=== PATIENT | male | born 1980 | race Caucasian/White ===

== ENCOUNTER 2024-06-22 07:04 | Outpatient (CLI) | payer OTHER, SELFPAY ==
--- NOTE | ~2024-06-22 | US_ITS ---
EXAMINATION: US right upper quadrant DATE: 06/22/2024 07:32 INDICATION: R74.01 - Elevation of levels of liver transaminase levels TECHNIQUE: Multiple grayscale and Doppler ultrasound images of the right upper quadrant were obtained . COMPARISON: 12/28/2006. FINDINGS: The visualized portions of the pancreas are normal. Echogenic liver parenchyma. 2.8 cm hete rogeneous focus in the liver with an echogenic ring, central hypoechogenicity, and the suggestion of a peripheral halo (image 24/30). No surface nodularity. Normal hepatopetal flow in the main portal ve in. The gallbladder is normal with no abnormal wall thickening, pericholecystic fluid or stones. The common bile duct measures 3 mm. There was no sonographic Means sign. IMPRESSION: Echogenic liver, most commonly due to steatosis but also can be seen with hepatitis and fibrosis. Possible 2.8 cm liver lesion, consider MR or CT of the liver without and with contrast for confirmati on further characterization. Reviewed, dictated and finalized at location K. IMPRESSION: Echogenic liver, most commonly due to steatosis but also can be seen with hepat itis and fibrosis. Possible 2.8 cm liver lesion, consider MR or CT of the liver without and with c ontrast for confirmation further characterization.
[2024-06-22 07:21] LABS: Basophils Absolute Auto 0.08 K/mm3 (0.00-0.10); Basophils Percent Auto 0.9 % (0.0-1.0); Eosinophils Absolute Auto 0.32 K/mm3 (0.02-0.50); Eosinophils Percent Auto 3.4 % (1.0-6.0); Hematocrit 43.8 % (40.0-54.0); Hemoglobin 15.5 g/dL (14.0-18.0); Immature Granulocyte Absolute 0.05 K/mm3 (0.00-0.00); Immature Granulocyte Percent A 0.5 % (0.0-0.0); Lymphocytes Absolute Auto 2.93 K/mm3 (1.10-4.50); Lymphocytes Percent Auto 31.2 % (18.0-42.0); Mean Corpuscular HGB Conc 35.4 g/dL (32-36); Mean Corpuscular Hemoglobin 32.8 pg (27.0-31.0); Mean Corpuscular Volume 92.8 fL (78.0-102.0); Mean Platelet Volume 10.1 fl (8.7-11.0); Monocytes Absolute Auto 0.82 K/mm3 (0.10-0.90); Monocytes Percent Auto 8.7 % (2.0-11.0); Neutrophils Absolute Auto 5.19 K/mm3 (1.70-7.20); Neutrophils Percent Auto 55.3 % (50.0-70.0); Platelet Count Result 240 K/mm3 (150-420); Red Blood Count 4.72 M/mm3 (4.70-6.10); Red Cell Distribution Width 12.1 % (11.6-14.4); White Blood Count 9.4 K/mm3 (4.8-10.8)
[2024-06-22 08:18] LABS: Alanine Aminotransferase 56 U/L (16-63); Albumin Level 3.8 g/dL (3.4-5.0); Alkaline Phosphatase 70 U/L (46-116); Anion Gap 10 mmol/L (4-12); Aspartate Amino Transferase 32 U/L (15-37); Bilirubin,Total 0.7 mg/dL (0.00-1.00); Blood Urea Nitrogen 12 mg/dL (7-18); Calcium 9.2 mg/dL (8.5-10.1); Carbon Dioxide 27 mmol/L (21-32); Chloride 101 mmol/L (98-108); Cholesterol 213 mg/dL (0-200); Estimated Glomerular Filt Rate > 60; Glucose 91 mg/dL (70-99); HDL Direct 31 mg/dL (40-60); LDL Cholesterol Calculated 143 mg/dL (<130); Osmolality Calculated 285 mOsm/kg (285-295); Potassium 4.4 mmol/L (3.5-5.1); Sodium 138 mmol/L (136-145); Thyroid Stimulating Hormone 0.75 uIU/mL (0.36-3.74); Total Protein 7.3 g/dL (6.4-8.2); Triglycerides 194 mg/dL (0-150)
[2024-06-23 20:43] LABS: Amphetamines NEGATIVE ng/mL (<500); Barbiturates NEGATIVE ng/mL (<300); Benzodiazepines NEGATIVE ng/mL (<100); Cocaine Metabolite NEGATIVE ng/mL (<150); Marijuana Metabolite NEGATIVE ng/mL (<20); Methadone Metabolite NEGATIVE ng/mL (<100); Opiates NEGATIVE ng/mL (<100); Oxidant NEGATIVE mcg/mL (<200); pH 4.8 (4.5-9.0)
== END 2024-06-22 07:05 | disposition home or self-care (01) ==
LOC: CHSIMG 07:07
PROVIDERS: PCP Clinical Nurse Specialist; Visit Provider Clinical Nurse Specialist
DX: Z13.228 Encounter for screening for other metabolic disorders (principal); F41.9 Anxiety disorder, unspecified; E66.01 Morbid (severe) obesity due to excess calories; F90.9 Attention-deficit hyperactivity disorder, unspecified type; R74.01 Elevation of levels of liver transaminase levels; Z68.42 Body mass index [BMI] 45.0-49.9, adult; R93.2 Abnormal findings on diagnostic imaging of liver and biliary tract
CPT/HCPCS: 36415; 76705; 80053; 80061; 80307; 84443; 85025

== ENCOUNTER 2024-07-19 06:47 | Outpatient (CLI) | payer OTHER, SELFPAY | END 2024-07-19 06:48 | disposition home or self-care (01) | LOC: CHSIMG 06:49 | PROVIDERS: PCP Clinical Nurse Specialist; Visit Provider Clinical Nurse Specialist | DX: K76.9 Liver disease, unspecified (principal) | CPT/HCPCS: 99199 ==

== ENCOUNTER 2024-11-30 17:05 | Emergency (ER) | payer OTHER, SELFPAY ==
--- NOTE | ~2024-11-30 | XR_ITS ---
XR chest 2V Ordering provider: Estela Ricci MD History: 44 years Male with . cp, sob, dizziness . Comparison: February 17, 2017 FINDINGS: MEDIASTINUM: The cardiac silhouette is not enlarged. LUNGS: No infiltrates, effusions or pneumothorax. OTHER: No free air under the diaphragm. Degenerative changes of the spine. IMPRESSION: No acute cardiopulmonary pathology. Reviewed, dictated and finalized at location A. IFIED MIDWIFE
--- NOTE | 2024-11-30 17:11 | ECG_ITS ---
Test Date: 2024-11-30 17:20:20 Measurements Intervals [place] Rate: 95 P: 38 AR: 157 QRS: 19 QRSD: 110 T: 15 QT: 355 QTc: 447 Interpretive Statements SINUS RHYTHM INCOMPLETE RIGHT BUNDLE BRANCH BLOCK [90+ ms QRS DURATION, TERMINAL R IN V1/V2, 40+ ms S IN I/aVL/V4/V5/V6] No previous ECG available for comparison Electronically Signed On 12-04-2024 17:47:05 ASSISTANT MANAGER AIRSIDE OPERATIONS by Eli Gregg M.D.
[2024-11-30 17:13] VITALS: BP 152/116; PULSE 95; RESP 20; TEMP 36.6; O2SAT 98
[2024-11-30 17:34] LABS: Basophils Absolute Auto 0.1 K/mm3 (0.0-0.1); Basophils Percent Auto 0.9 % (0.2-1.2); Eosinophils Absolute Auto 0.9 K/mm3 (0-0.3); Eosinophils Percent Auto 6.8 % (0-4.4); Hematocrit 40.9 % (42.0-52.0); Hemoglobin 14.7 g/dL (14.0-18.0); Immature Granulocyte Absolute 0.07 K/mm3 (0.00-0.031); Immature Granulocyte Percent A 0.5 % (0-0.5); Lymphocytes Absolute Auto 2.99 K/mm3 (0.9-3.2); Lymphocytes Percent Auto 23.5 % (18.3-44.2); Mean Corpuscular HGB Conc 35.9 g/dl (32-36); Mean Corpuscular Hemoglobin 32.2 pg (26-34); Mean Corpuscular Volume 89.5 fl (80-100); Mean Platelet Volume 9.4 fl (7.4-10.4); Monocytes Absolute Auto 1.1 K/mm3 (0.1-0.6); Neutrophils Absolute Auto 7.6 K/mm3 (1.3-6.7); Neutrophils Percent Auto 59.3 % (45.5-73.1); Platelet Count Result 238 k/mm3 (150-375); Red Blood Count 4.57 M/mm3 (4.6-6.20); Red Cell Distribution Width 12.3 % (11.5-14.5); White Blood Count 12.7 K/mm3 (4.5-10.0)
[2024-11-30 17:44] LABS: Alanine Aminotransferase 40 U/L (6-50); Albumin Level 4.5 g/dL (3.5-5.1); Alkaline Phosphatase 88 U/L (38-126); Anion Gap 6 mmol/L (4-12); Aspartate Amino Transferase 47 U/L (17-59); Bilirubin,Total 0.6 mg/dL (0.2-1.3); Blood Urea Nitrogen 9 mg/dL (9-20); Calcium 9.1 mg/dL (8.4-10.2); Carbon Dioxide 25 mmol/L (22-30); Chloride 103 mmol/L (98-107); Estimated CRCL calculation 145 ml/min; Estimated Glomerular Filt Rate > 60; Glucose 102 mg/dL (65-110); Lipase 58 U/L (23-300); Potassium 3.7 mmol/L (3.4-5.0); Sodium 134 mmol/L (137-145)
[2024-11-30 17:48] LABS: Prothrombin Time 13.5 Seconds (11.1-14.7)
[2024-11-30 17:49] LABS: Partial Thromboplastin Time 29.2 Seconds (22.3-36.8)
[2024-11-30 17:56] LABS: Troponin I < 0.012 ng/mL (0.000-0.034)
[2024-11-30 23:17] VITALS: BP 144/92; PULSE 98; RESP 14; TEMP 36.4; O2SAT 99
[2024-12-01 02:13] VITALS: BP 156/103; PULSE 88; RESP 18; O2SAT 96
--- NOTE | 2024-12-01 02:21 | PC.NURSE ---
aspirin was not given. will await for new orders from provider.
--- NOTE | 2024-12-01 02:25 | ECG_ITS ---
Test Date: 2024-12-01 02:28:00 Measurements Intervals [place] Rate: 82 P: 32 RI: 159 QRS: 20 QRSD: 111 T: 15 QT: 383 QTc: 448 Interpretive Statements SINUS RHYTHM LOW QRS VOLTAGE IN PRECORDIAL LEADS [QRS DEFLECTION < 1.0 mV IN CHEST LEADS] INCOMPLETE RIGHT BUNDLE BRANCH BLOCK [90+ ms QRS DURATION, TERMINAL R IN V1/V2, 40+ ms S IN I/aVL/V4/V5/V6] Compared to ECG 11/30/2024 17:20:20 NO SIGNIFICANT CHANGES Electronically Signed On 12-04-2024 17:54:23 SEPARATING MACHINE OPERATOR by Eli Gregg M.D.
[2024-12-01 03:02] LABS: Troponin I < 0.012 ng/mL (0.000-0.034)
--- NOTE | 2024-12-01 03:44 | ED.GENADULT ---
HPI - General Adult General Chief complaint: Chest Pain Stated complaint: CP, cough, SOB Time Seen by Provider: 12/01/24 02:34 History of Present Illness HPI narrative: Patient 34-year-old gentleman presents emergency department chief complaint of chest pain and syncope. The patient reports that he is cough pain and had an episode of coughing where he would bear down the patient reports that he passed out after this episode. Patient reports that he has had no bowel or bladder incontinence reports that he then had pressure in the left side of his chest that has subsequently resolved. Related Data Home Medications ?Medication ?Instructions ?Recorded ?Confirmed ?Last Taken ?Type naproxen sodium 220 mg tablet 660 mg PO BID PRN 03/27/24 08/23/24 Unknown History (Aleve) trazodone 100 mg tablet 100 mg PO QHS PRN 03/27/24 08/23/24 Unknown History Allergies Allergy/AdvReac Type Severity Reaction Status Date / Time No Known Allergies Allergy Unverified 08/23/24 14:41 Review of Systems Review of Systems: A 10 system review of systems was completed on the patient and is negative except for what is stated in the HPI. Nursing and ancillary documentation was reviewed. [facility] Past Medical History Medical History Alcoholism Sober since April 2023. Gastric ulcer Hypertension Anxiety Family History Family History Grandparent Malignant neoplasm of prostate Family history of lung cancer Father Heart disease Anxiety and depression Diabetes mellitus Hypertension Alcoholism Mother Hypertension Anxiety and depression Alcoholism Breast cancer Asthma Diabetes mellitus Other Cerebrovascular accident Family history of arthritis Family history of malignant neoplasm Social History Social History Smoking packs per day: 2 Smoking cigarettes per day: 40.0 Smoking status: Current every day smoker Tobacco type: cigarettes Alcohol intake: former Substance use type: does not use Do You Feel Safe in your Home?: Yes Lack of Transportation: No Lack of Food: Never True Current Housing: I Have Housing Concerned About Future Housing: No Difficulty Paying Gas/Electric Bills: No Difficulty Paying for Meds: No Currently Unemployed: No Education: Bachelor's Degree Difficulty w/ Childcare or Family Care: No Occupation/Education: occupation 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 HEAD: Normocephalic, atraumatic. EYES: PERRLA and EOMI. ENT: Nares clear, no rhinorrhea or epistaxis. Mucous membranes moist. NECK: Supple. CHEST: Clear to auscultation. No respiratory distress. HEART: Regular rate and rhythm. No murmur heard. Normal peripheral pulses. ABDOMEN: Soft, nontender, nondistended, normal active bowel sounds. EXTREMITIES: Normal range of motion. No edema. SKIN: Warm, dry, no rash. NEURO: No focal deficits. Alert and oriented x3. PSYCH: Normal mood and affect. Course Vital Signs Vital signs: Vital Signs Temperature 36.6 C 11/30/24 17:13 Pulse Rate 95 11/30/24 17:13 Respiratory Rate 20 11/30/24 17:13 Blood Pressure 152/116 H 11/30/24 17:13 Pulse Oximetry 98 11/30/24 17:13 Oxygen Delivery Room Air 11/30/24 17:13 Temperature 36.4 C 11/30/24 23:17 Pulse Rate 88 12/01/24 02:13 Respiratory Rate 18 12/01/24 02:13 Blood Pressure 156/103 H 12/01/24 02:13 Pulse Oximetry 96 12/01/24 02:13 Oxygen Delivery Room Air 11/30/24 17:13 Medical Decision Making [facility] Narrative Medical decision making narrative: Differential diagnosis includes cardiogenic syncope, dysrhythmia, vasovagal syncope, atypical chest pain The patient described the episode of forcefully coughing but not completely exhaling and coughing on a closed glottis this is most likely a vasovagal episode. The patient had 2- troponins in the emergency department the patient will be discharged home to follow-up with his primary care provider as he may need further workup as an outpatient that could include stress test Holter monitor. The patient was instructed to return precautions the patient was offered admission to the hospital with the patient has chosen to go home at this time Vital Signs Vital Signs: Vital Signs Temperature 36.6 C 11/30/24 17:13 Pulse Rate 95 11/30/24 17:13 Respiratory Rate 20 11/30/24 17:13 Blood Pressure 152/116 H 11/30/24 17:13 Pulse Oximetry 98 11/30/24 17:13 Oxygen Delivery Room Air 11/30/24 17:13 Temperature 36.4 C 11/30/24 23:17 Pulse Rate 88 12/01/24 02:13 Respiratory Rate 18 12/01/24 02:13 Blood Pressure 156/103 H 12/01/24 02:13 Pulse Oximetry 96 12/01/24 02:13 Oxygen Delivery Room Air 11/30/24 17:13 Lab Data 11/30/24 17:29 11/30/24 17:29 Labs: Lab Results 11/30/24 12/01/24 Range/Units 17:29 02:23 WBC 12.7 H (4.5-10.0) K/mm3 RBC 4.57 L (4.6-6.20) M/mm3 Hgb 14.7 (14.0-18.0) g/dL Hct 40.9 L (42.0-52.0) % MCV 89.5 (80-100) fl MCH 32.2 (26-34) pg MCHC 35.9 (32-36) g/dl RDW 12.3 (11.5-14.5) % Plt Count 238 (150-375) k/mm3 MPV 9.4 (7.4-10.4) fl Immature Gran % (Auto) 0.5 (0-0.5) % Neut % (Auto) 59.3 (45.5-73.1) % Lymph % (Auto) 23.5 (18.3-44.2) % Mccreary % (Auto) 9.0 H (2.6-8.5) % Eos % (Auto) 6.8 H (0-4.4) % Baso % (Auto) 0.9 (0.2-1.2) % Lymph # (Auto) 2.99 (0.9-3.2) K/mm3 Mccreary # (Auto) 1.1 H (0.1-0.6) K/mm3 Eos # (Auto) 0.9 H (0-0.3) K/mm3 Baso # (Auto) 0.1 (0.0-0.1) K/mm3 Abs Immat Gran (auto) 0.07 H (0.00-0.031) K/mm3 Absolute Neuts (auto) 7.6 H (1.3-6.7) K/mm3 Absolute Nucleated RBC 0.000 (0.0-0.012) K/mm3 Nucleated RBC % 0.0 (0.0-0.2) % PT 13.5 (11.1-14.7) Seconds INR 1.0 APTT 29.2 (22.3-36.8) Seconds Sodium 134 L (137-145) mmol/L Potassium 3.7 (3.4-5.0) mmol/L Chloride 103 (98-107) mmol/L Carbon Dioxide 25 (22-30) mmol/L Anion Gap 6 (4-12) mmol/L BUN 9 (9-20) mg/dL Creatinine 0.80 (0.7-1.3) mg/dL Estim Creat Clear Calc 145 ml/min Estimated GFR > 60 (59 - ) Glucose 102 (65-110) mg/dL Calcium 9.1 (8.4-10.2) mg/dL Total Bilirubin 0.6 (0.2-1.3) mg/dL AST 47 (17-59) U/L ALT 40 (6-50) U/L Alkaline Phosphatase 88 (38-126) U/L Troponin I < 0.012 < 0.012 (0.000-0.034) ng/mL Total Protein 8.0 (6.3-8.2) g/dL Albumin 4.5 (3.5-5.1) g/dL Lipase 58 (23-300) U/L Discharge Plan Discharge Clinical Impression: Atypical chest pain, Vasovagal syncope Patient Disposition: Home, Self-Care Condition: Stable Instructions: Antibiotic Form, Chest Pain (ED), Syncope (ED) Patient Language: Macedonian Prescriptions: No Action trazodone 100 mg tablet 100 mg PO QHS PRN naproxen sodium [Aleve] 220 mg tablet 660 mg PO BID PRN gabapentin 600 mg tablet 600 mg PO TID Qty: 270 1RF bupropion HCl [Wellbutrin XL] 150 mg tablet extended release 24 hr 150 mg PO DAILY Qty: 30 5RF celecoxib 200 mg capsule 200 mg PO BID Qty: 60 5RF escitalopram oxalate 20 mg tablet 20 mg PO DAILY Qty: 30 5RF lisdexamfetamine 30 mg capsule 30 mg PO DAILY Qty: 30 0RF lisinopril 20 mg tablet 20 mg PO DAILY Qty: 90 1RF Follow-up/Referrals: Tejal Lewis PROJECTOR OPERATOR-C [Primary Care Provider] - Time of Disposition: 03:45
--- OUTSIDE RECORDS SUMMARY | 2024-12-08 03:46 | XMS_ITS | Encounter Summary ---
Author Organization [facility] Address [address] [place] [address]. [place], [place] [id number] [place] [id number] Care Team Providers Care Assistant Therapy Aide Name Role Phone Delores Hong MD Primary Care Provider [phone]- [phone] Encounter Details Date Type Department Care Team (Latest Contact Info) Description 01/27/2024 Travel Social History Tobacco Use Types Packs/Day Years Used Date Smoking Tobacco: Every Day Cigarettes 2 18 Smokeless Tobacco: Never Alcohol Use Standard Drinks/Week Comments Yes 0 (1 standard drink = 0.6 oz pure alcohol) (1) small bottle a day through week, (1) 5th on weekends a day. [place] Humiliation, Afraid, Rape, and Kick questionnair e Answer Date Recorded Within the last year, have y ou been afraid of your partner or ex-partner? No 01/24/2023 Within the last year, have y ou been humiliated or emotionally abused in other ways by your partner or ex-partner? No Within the last year, have y ou been kicked, hit, slapped, or otherwise physically hurt by your partner or ex-partner? No 01/24/2023 Within the last year, have y ou been raped or forced to have any kind of sexual activity by your partner or ex-partner? No 01/24/2023 Social Connection and Isolation Panel [NHANES] A nswer Date Recorded In a typical week, how many times do you talk on the phone with family, friends, or neighbors? Once a week 01/24/20 How often do you get togethe r with friends or relatives? Once a week 01/24/2023 How often do you attend chur ch or scientologist services? 1 to 4 times per year 01/24/2023 Do you belong to any clubs o r organizations such as restorationist groups, unions, fraternal or athletic groups, or school groups? No 01/24/2023 Attends Club or Organization Meetings Not on marta e 01/24/2023 Are you , , di vorced, , never , or living with a partner? 01/24/2023 AUDIT-C Answer Date Recorded Q1: How often do you have a drink containing alcohol? 4 or more times a week 01/24/2023 Q2: How many drinks containi ng alcohol do you have on a typical day when you are drinking? 3 or 4 Q3: How often do you have si x or more drinks on one occasion? Weekly 01/24/2023 Overall Financial Resource Strain (CARDIA) Answe r Date Recorded How hard is it for you to pa y for the very basics like food, housing, medical care, and heating? Not hard at all 01/24/2023 PHQ-2 Answer Date Recorded Patient Health Questionnaire-2 Score 0 01/24/2023 [facility] - Occupational Stress Questionnaire Answer Date Recorded Do you feel stress - tense, restless, nervous, or anxious, or unable to sleep at night because your mind is troubled all the time - these days? Rather much 01/24/2023 Exercise Vital Sign Answer Date Recorde d On average, how many days pe r week do you engage in moderate to strenuous exercise (like a brisk walk)? 0 days 01/24/2023 On average, how many minutes do you engage in exercise at this level? 0 min 01/24/2023 Hunger Vital Sign Answer Date Recorded Within the past 12 months, y ou worried that your food would run out before you got the money to buy more. Never true 01/24/20 23 Within the past 12 months, t he food you bought just didn't last and you didn't have money to get more. Never true 01/24/2023 PRAPARE - Transportation Answer Date Re corded In the past 12 months, has l ack of transportation kept you from medical appointments or from getting medications? No 12/30 In the past 12 months, has l ack of transportation kept you from meetings, work, or from getting things needed for daily living? No 01/24/2023 Housing Stability Vital Sign Answer Honorio e Recorded In the last 12 months, was t here a time when you were not able to pay the mortgage or rent on time? No 01/24/2023 In the last 12 months, how many places have you lived? 1 01/24/2023 In the last 12 months, was t here a time when you did not have a steady place to sleep or slept in a residential (including now)? 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 Answer Date of Assessment Author Status No 01/24/2023 10:56 PM TILE CLASSIFIER Acti ve * Do you have serious difficulty walking or climbing stairs? Answer Date of Assessment Author Status No 01/24/2023 10:56 PM Leonor Hidalgo RN Active * Do you have difficulty dressing or bathing? Answer Date of Assessment Author Status No 01/24/2023 10:56 PM Leonor Hidalgo RN Active * Because of a physical, mental, or emotional condition, do you have difficulty doing errands alone such as visiting a doctor's office or shopping? Answer Date of Assessment Author Status No 01/24/2023 10:56 PM Leonor Hidalgo RN Active documented as of this encounter Mental Status * Because of a physical, mental, or emotional condition, do you have serious difficulty concentrating, remembering, or making decisions? Answer Entry Date Author Status No 01/24/2023 10:56 PM Leonor Hidalgo RN Active documented in this encounter Plan of Treatment Not on file documented as of this encounter Goals Goal Patient Goal Type Associated Problems Recent Progress Patient-Stated? Author Patient will return to prior living situation and remain independent in ADLs upon discharge from hospital Lifestyle Rosalina Richard, RN documented as of this encounter Visit Diagnoses Not on filedocumented in this encounter Care Teams Assistant Therapy Aide Relationship Specialty Start Date End Date Delores Hong MD [address] [place] [phone] PCP - General FAMILY PRACTICE 01/23/24 documented as of this encounter
--- OUTSIDE RECORDS SUMMARY | 2024-12-08 03:46 | XMS_ITS | Encounter Summary ---
Author Organization [facility] Address [address] [place] [address]. [place], [place] [id number] [place] [address] Care Team Providers Care Oceanographer Geological Name Role Phone Delores Hong MD Primary Care Provider [phone]- [phone] Encounter Details Date Type Department Care Team (Latest Contact Info) Description 01/23/2024 Travel Social History Tobacco Use Types Packs/Day [...] often do you attend chur ch or methodist services? 1 to 4 times per year 01/24/2023 Do you belong to any clubs o r organizations such as amish groups, unions, fraternal or athletic groups, or [...] Recorded Patient Health Questionnaire-2 Score 0 01/24/2023 [facility] Occupat ional Health - Occupational Stress [...] place to sleep or slept in a assisted (including now)? 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 Answer Date of Assessment Author Status No 01/24/2023 10:56 PM OTHER WOOD PROCESSING MACHINE OPERATOR Acti ve * Do you have serious [...] on filedocumented in this encounter Care Teams Oceanographer Geological Relationship Specialty Start Date End Date Delores Hong MD [address] [place] [phone] PCP - General FAMILY PRACTICE 01/23/24 documented as of this encounter
--- OUTSIDE RECORDS SUMMARY | 2024-12-08 03:46 | XMS_ITS | Encounter Summary ---
Author Organization [facility] Address [address] [place] [address]. [place], [place] [id number] [place] [id number] Care Team Providers Care Family Dinner Service Specialist Name Role Phone Kevin Blanc MD Primary Care Provider [phone] Reason for Visit * Imaging (Routine) - Closed Specialty Diagnoses / Procedures Referred By Contac t Referred To Contact RADIOLOGY Diagnoses Back pain Procedures CT LUMB SPINE WO CON Kevin Blanc MD [address] [place] [phone] Phone: tel: fax: Referral ID Status Reason Start Date Expiration Date Visits Re quested Visits Authorized [id number] Closed 12/29/2023 01/27/2024 1 1 Encounter Details Date Type Department Care Team (Late st Contact Info) Description 01/27/2024 2:58 PM SCULLION CHIEF - 01/27/2024 11:59 PM SCULLION CHIEF Hospital Encounter [facility] [address] [facility] [place] [address] Kevin Blanc MD [address] [place] [phone] Discharge Disposition: Home or Self Care (Routine Discharge) Social History Tobacco Use Types Packs/Day Years Used Date Smoking Tobacco: Every Day Cigarettes 2 18 Smokeless Tobacco: Never Alcohol Use Standard Drinks/Week Comments Yes 0 (1 standard drink = 0.6 oz pure alcohol) (1) small bottle a day through week, (1) 5th on weekends a day. CARROL BEAM Humiliation, Afraid, Rape, and Kick questionnair e [...] week 01/24/2023 How often do you attend [facility] or alevism services? 1 to 4 times per year 01/24/2023 Do you belong to any clubs o r organizations such as buddhism groups, unions, fraternal or athletic groups, or [...] Recorded Patient Health Questionnaire-2 Score 0 01/24/2023 [facility] - Occupational Stress Questionnaire Answer Date Recorded [...] Sex Assigned at Male 01/24/2023 10:53 PM SCULLION CHIEF Legal Sex Male 5:54 PM SCULLION CHIEF Gender Identity Male 01/24/2023 10:53 PM SCULLION CHIEF Sexual Orientation Straight 01/24/2023 10 :53 PM SCULLION CHIEF 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 Answer Date of Assessment Author Status No 01/24/2023 10:56 PM SCULLION CHIEF Acti ve * Do you have serious [...] Hidalgo RN Active documented in this encounter Medications at Time of Discharge clobetasol (TEMOVATE) 0.05 % cream Apply 15 g topically 2 (two) times daily. 01/15/2023 escitalopram (LEXAPRO) 10 MG tablet Take 1 tablet by mouth daily. 01/15/2023 documented as of this encounter Plan of Treatment Not on file documented as of this encounter Goals Goal Patient Goal Type Associated Problems Recent Progress Patient-Stated? Author Patient will return to prior living situation and remain independent in ADLs upon discharge from hospital Lifestyle Rosalina Richard RN documented as of this encounter Procedures Procedure Name Priority Date/Time Associated Diagnosis Comments CT LUMB SPINE WO CON Routine 01/27/2024 3:18 PM SCULLION CHIEF Back pain documented in this encounter Results * CT LUMB SPINE WO CON (01/27/2024 3:18 PM SCULLION CHIEF) Anatomical Region Laterality Modality Spine Computed Tomogra phy 01/30/2024 8:27 AM SCULLION CHIEF Impressions 02/05/2024 7:24 AM CDT IMPRESSION: Multilevel lumbar spondylosis greatest at L4-L5, as described above. The attending radiologist has reviewed the image(s) and agrees with the content of this report. Ordered By: KEVIN BLANC Interpreted By: Vito Alvarenga MD, 01/30/2024 8:27 AM Narrative 02/05/2024 7:24 AM CDT EXAMINATION: CT lumbar spine without contrast INDICATION: Back pain DATE AND TIME: 01/27/2024 3:12 PM TECHNIQUE: Non contrast CT examination of the lumbar spine was performed with axial and multiplanar reformatted images obtained. A radiation dose lowering technique was used for this procedure, which may include, but is not limited to, dose reduction technique, automated exposure control, the use of iterative reconstruction, ALARA (As Low As Reasonably Achievable) techniques, and Image Gently techniques. COMPARISON: CT abdomen pelvis 07/21/2018 FINDINGS: There are 5 lumbar vertebrae. There is grade 1 retrolisthesis of L3 over L4 and L5 over S1. There is grade 1 anterolisthesis of L4 over L5. There is maintenance of the normal lumbar spine lordosis. The lumbar vertebral body heights are normal. There is some disc space narrowing at T11-T12 and T12-L1 intervertebral spaces. There is widening of the facet joint at L4-L5 as well as significant facet arthropathy from the levels of L3-L5. There are degenerative changes such as anterior osteophyte formation across multiple levels most significant at T12-L1 as well as the partially visualized T11-T12 intervertebral spaces. There is no evidence of acute fracture or dislocation. T11-T12: Mild disc bulge. Moderate facet hypertrophy. Mild left neural foraminal stenosis. No right neural foraminal stenosis.. T12-L1: No significant osseous spinal canal or neuroforaminal stenosis. L1-L2: No significant osseous spinal canal or neuroforaminal stenosis. L2-L3: There is a disc bulge. Mild to moderate spinal canal stenosis. Mild bilateral neural foraminal stenosis. L3-L4: Disc bulge impressing the ventral thecal sac. Mild to moderate facet hypertrophy. Mild left neural foraminal stenosis. No right neural foraminal stenosis.. L4-L5: Disc bulge impressing the ventral thecal sac. Moderate to severe spinal canal stenosis. Moderate to marked facet hypertrophy. Moderate left neural foraminal stenosis. Mild right neural foraminal stenosis. L5-S1: No significant spinal canal stenosis. Facet hypertrophy. Mild to moderate right neural foraminal stenosis. Mild left neural foraminal stenosis There is some atherosclerotic disease of the distal abdominal aorta and bilateral common iliac arteries. No additional perispinal soft tissue abnormalities. Procedure Note Malick Ratliff MD - 02/05/2024 EXAMINATION: CT lumbar spine without contrast INDICATION: Back pain DATE AND TIME: 01/27/2024 3:12 PM TECHNIQUE: Non contrast CT examination of the lumbar spine was performed with axialand multiplanar reformatted images obtained. A radiation dose loweringtechnique was used for this procedure, which may include, but is notlimited to, dose reduction technique, automated exposure control, the useof iterative reconstruction, ALARA (As Low As Reasonably Achievable)techniques, and Image Gently techniques. COMPARISON: CT abdomen pelvis 07/21/2018 FINDINGS: There are 5 lumbar vertebrae. There is grade 1 retrolisthesis of L3 overL4 and L5 over S1. There is grade 1 anterolisthesis of L4 over L5. Thereis maintenance of the normal lumbar spine lordosis. The lumbar vertebralbody heights are normal. There is some disc space narrowing at T11-T12 [id number] intervertebral spaces. There is widening of the facet joint atL4-L5 as well as significant facet arthropathy from the levels of L3-L5.There are degenerative changes such as anterior osteophyte formationacross multiple levels most significant at T12-L1 as well as the partiallyvisualized T11-T12 intervertebral spaces. There is no evidence of acutefracture or dislocation. T11-T12: Mild disc bulge. Moderate facet hypertrophy. Mild left neuralforaminal stenosis. No right neural foraminal stenosis.. T12-L1: No significant osseous spinal canal or neuroforaminal stenosis. L1-L2: No significant osseous spinal canal or neuroforaminal stenosis. L2-L3: There is a disc bulge. Mild to moderate spinal canal stenosis. Mildbilateral neural foraminal stenosis. L3-L4: Disc bulge impressing the ventral thecal sac. Mild to moderatefacet hypertrophy. Mild left neural foraminal stenosis. No right neuralforaminal stenosis.. L4-L5: Disc bulge impressing the ventral thecal sac. Moderate to severespinal canal stenosis. Moderate to marked facet hypertrophy. Moderate leftneural foraminal stenosis. Mild right neural foraminal stenosis. L5-S1: No significant spinal canal stenosis. Facet hypertrophy. Mild tomoderate right neural foraminal stenosis. Mild left neural foraminalstenosis There is some atherosclerotic disease of the distal abdominal aorta andbilateral common iliac arteries. No additional perispinal soft tissueabnormalities. IMPRESSION: Multilevel lumbar spondylosis greatest at L4-L5, as described above. The attending radiologist has reviewed the image(s) and agrees with thecontent of this report. Ordered By: KEVIN BLANC Interpreted By: Vito Alvarenga MD, 01/30/2024 8:27 AM us Kevin Blanc MD CT Final Resu lt documented in this encounter Visit Diagnoses Not on filedocumented in this encounter Care Teams Family Dinner Service Specialist Relationship Specialty Start Date End Date Kevin Blanc MD [address] [place] [phone] PCP - General FAMILY PRACTICE 01/23/24 documented as of this encounter
--- OUTSIDE RECORDS SUMMARY | 2024-12-08 03:46 | XMS_ITS | Encounter Summary ---
Author Organization [facility] Address [address] [place] [address]. [place], [place] [id number] [place] [address] Care Team Providers Care Grinder And Plater Name Role Phone Sai Pacheco MD Primary Care Provider [phone] Encounter Details Date Type Department Care Team (Latest Contact Info) Description 01/24/2023 Travel Social History Tobacco Use Types Packs/Day [...] [facility] or taoism services? 1 to 4 times per year 01/24/2023 Do you belong to any clubs o r organizations such as latter-day groups, unions, fraternal or athletic groups, or [...] Recorded Patient Health Questionnaire-2 Score 0 01/24/2023 [facility] - Occupational Stress [...] place to sleep or slept in a [facility] (including now)? 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 No / Unsure 01/24/2023 10:50 PM STATEMENT CLERKS MANAGER documented as of this encounter Functional Status * Question Answer Date of Assessment Author Status Do you have serious difficulty walking or climbing stairs? No 01/24/2023 10:56 PM Leonor Hidalgo RN Active * Question Answer Date of Assessment Author Status Do you have difficulty dressing or bathing? No 01/24/2023 10:56 PM Leonor Hidalgo RN Active Because of a physical, mental, or emotional condition, do you have difficulty doing errands alone such as visiting a doctor's office or shopping? No 01/24/2023 10:56 PM Leonor Hidalgo RN A ctive * RETIRED Are you deaf or do you have serious difficulty hearing Answer Date of Assessment Author Status No 12/28/2020 1:37 AM STATEMENT CLERKS MANAGER Activ e * RETIRED Are you blind or do you have serious difficulty seeing, even when wearing glasses? Answer Date of Assessment Author Status No 12/28/2020 1:37 AM STATEMENT CLERKS MANAGER Activ e * Do you have serious difficulty walking or climbing stairs? Answer Date of Assessment Author Status No 12/28/2020 1:37 AM Arina Guerra RN Active * Do you have difficulty dressing or bathing? Answer Date of Assessment Author Status No 12/28/2020 1:37 AM Arina Guerra RN Active * Because of a physical, mental, or emotional condition, do you have difficulty doing errands alone such as visiting a doctor's office or shopping? Answer Date of Assessment Author Status No 12/28/2020 1:37 AM Arina Guerra RN Active documented as of this encounter Mental Status * Question Answer Entry Date Author Status Because of a physical, mental, or emotional condition, do you have serious difficulty concentrating, remembering, or making decisions? No 01/24/2023 10:56 PM Leonor Hidalgo RN Active * Because of a physical, mental, or emotional condition, do you have serious difficulty concentrating, remembering, or making decisions? Answer Entry Date Author Status No 12/28/2020 1:37 AM Arina Guerra RN Active documented in this encounter Plan of Treatment Not on file documented as of this encounter Visit Diagnoses Not on filedocumented in this encounter Care Teams Grinder And Plater Relationship Specialty Start Date End Date Sai Pacheco MD [address] [place] [phone] PCP - General FAMILY PRACTICE 12/27/20 01/22/24 documented as of this encounter
--- OUTSIDE RECORDS SUMMARY | 2024-12-08 03:46 | XMS_ITS | Encounter Summary ---
Author Organization [facility] Address [address] [place] [address]. [place] [address] [place] [address] Care Team Providers Care Customer Contact Representative Name Role Phone Sai Mejia MD Primary Care Provider [phone] Reason for Visit * Reason Comments Hypotension * Auth/Cert (Routine) Specialty Diagnoses / Procedures Referred By Contac t Referred To Contact Diagnoses Hypokalemia Hyponatremia LAWSON (acute kidney injury) ([facility]) LAWSON (acute kidney injury) ([facility]) Procedures NONE Major Iglesias MD [address] [place] [address] Phone: tel: fax: Referral ID Status Reason Start Date Expiration Date Visits Re quested Visits Authorized [id number] 1 1 Encounter Details Date Type Department Care Team (Late st Contact Info) Description 01/24/2023 9:10 PM PLAYGROUND DIRECTOR - 01/25/2023 2:30 PM PLAYGROUND DIRECTOR Emergency [facility] [address] [place] [address] Dinesh Delgado MD [address] [place] [id number] Major Iglesias MD [address] [place] [address] Delores Hong MD [address] [place] [phone] Hypotension Discharge Disposition: Home or Self Care (Routine Discharge) Social History Tobacco Use Types Packs/Day Years Used Date Smoking Tobacco: Every Day Cigarettes 2 18 Smokeless Tobacco: Never Tobacco Cessation:Ready to Q uit: Not Asked; Counseling Given: Not Answered Alcohol Use Standard Drinks/Week Comments Yes 0 [...] 01/24/2023 How often do you attend chur or yarsanism services? 1 to 4 times per year 01/24/2023 Do you belong to any clubs o r organizations such as hindu groups, unions, fraternal or athletic groups, or [...] Recorded Patient Health Questionnaire-2 Score 0 01/24/2023 [facility] - Occupational Stress [...] place to sleep or slept in a usp (including now)? 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 No / Unsure 01/24/2023 10:50 PM PLAYGROUND DIRECTOR documented as of this encounter Last Filed Vital Signs Vital Sign Reading Time Taken Comments Blood Pressure 126/84 01/25/2023 12:35 PM PLAYGROUND DIRECTOR Pulse 75 01/25/2023 12:35 PM PLAYGROUND DIRECTOR Temperature 36.6 ??C (97.9 ??F) 01/25/2023 12:[address] Respiratory Rate 20 01/25/2023 12:35 PM PLAYGROUND DIRECTOR Oxygen Saturation 96% 01/25/2023 12:35 PM PLAYGROUND DIRECTOR Inhaled Oxygen Concentration - - Weight 131.1 kg (289 lb) 01/24/2023 10:39 PM PLAYGROUND DIRECTOR Height 177.8 cm (5' 10 ) 01/24/2023 10:39 PM PLAYGROUND DIRECTOR Body Mass Index 41.47 01/24/2023 10:39 PM PLAYGROUND DIRECTOR documented in this encounter Functional Status * Question Answer [...] Assessment Author Status No 01/24/2023 10:56 PM PLAYGROUND DIRECTOR Acti ve * RETIRED Are you blind or do you have serious difficulty seeing, even when wearing glasses? Answer Date of Assessment Author Status No 01/24/2023 10:56 PM PLAYGROUND DIRECTOR Acti ve * Do you have serious difficulty walking or climbing stairs? Answer Date of Assessment Author Status No 01/24/2023 10:56 PM Leonor Hidalgo RN Active * Do you have difficulty dressing or bathing? Answer Date of Assessment Author Status No 01/24/2023 10:56 PM PLAYGROUND DIRECTOR Leonor Clifford RN Active * Because of a physical, [...] Hidalgo RN Active documented in this encounter Discharge Summaries * Mt Zavala NP - 01/25/2023 2:30 PM CST Images from the original note were not included. Physician Discharge Summary Patient ID: Stan Khan. male. 1980. Admit date: 01/24/2023 9:10 PM Discharge date and time: 01/25/23 Admitting Physician: Major Iglesias MD Primary Care Physician: SAI MEJIA MD Attending Provider: No att. providers found Discharge Physician: Delores Hong MD/TM ZAVALA NP Primary Diagnoses: Dehydration LAWSON Electrolyte imbalance Anxiety Secondary Diagnosis: Alcohol abuse Admission Condition: fair Discharged Condition: Good Code Status: Full Code Indication for Admission: Chief Complaint Patient presents with ??? Hypotension Reason for hospitalization: dehydration, LAWSON, weakness Hospital Course: Stan Khan was admitted on 01/24/2023 9:10 PM for complaint of low blood pressure. Patient states on January 17 he was started on lisinopril hydrochlorothiazide. He has been taking it every day.Previous to this he was only on lisinopril. He states that since starting it his blood pressure is r unning low and at times he feels lightheaded and caused him to vomit. This evening his systolic blood pressure was only 95. No pain or other complaints at this time. He states he is try to drink a lot of fluids today but has not had much of an appetite so did not eat much since breakfast. Denies abdominal pain diarrhea fevers chills or other complaints. Laboratory work-up shows hyponatremia hypokalemia hypochloremia with acute kidney injury as evidenced by creatinine of 2.28. White count is also elevated although I suspect this related to the dehydration. Will be continuing to give IV fluids. Patient seen today, electrolyte imbalance is normalizing. Patient to f/u with Dr. Hong this week for labs and office visit. Patient ready for discharge. Consults: none Significant Diagnostic Studies: Radiology Results (Last 30 days) None Vital Signs at Discharge: Filed Vitals: 01/25/23 0504 01/25/23 0505 01/25/23 0835 01/25/23 1235 BP: 99/54 99/54 129/77 126/84 Pulse: (!) 113 (!) 115 76 75 Resp: 22 20 Temp: 97.7 ??F (36.5 ??C) 97.9 ??F (36.6 ??C) TempSrc: Tympanic SpO2: 98% 99% 97% 96% Weight: Height: Last labs past 24 hours: Recent Results (from the past 24 hour(s)) CBC W/DIFF AUTOMATED Collection Time: 01/24/23 9:37 PM Result Value Ref Range WBC 14.07 (H) 4.00 - 10.80 x10'3/uL RBC 4.94 4.50 - 6.10 x10'6/uL HGB 17.5 13.0 - 18.0 G/DL HCT 47.4 37.0 - 52.0 % MCV 96.0 78.0 - 100.0 FL MCH 35.4 (H) 27.0 - 31.0 PG MCHC 36.9 (H) 33.0 - 36.0 G/DL RDW 11.3 (L) 11.5 - 14.5 % PLT 168 150 - 350 x10'3/uL MPV 10.1 7.4 - 10.4 FL CBC COMMENT NORMAL REFERENCE RANGE NOT ESTABLISHED FOR THE PROPORTIONAL LEUKOCYTE DIFFERENTIAL. SEG NEUTROPHILS 77 % LYMPHOCYTES 13 % MONOCYTES 10 % ABS SEGMENTED NEUTS 10.83 (H) 1.60 - 8.30 x10'3/uL ABS. LYMPHOCYTES 1.83 0.80 - 4.70 x10'3/uL ABS. MONOCYTES 1.41 0.10 - 1.50 x10'3/uL PLT MORPH. NORMAL RBC MORPHOLOGY NORMAL COMPREHENSIVE METABOLIC PANEL Collection Time: 01/24/23 9:37 PM Result Value Ref Range SODIUM 125 (L) 136 - 145 MMOL/L POTASSIUM 3.2 (L) 3.5 - 5.1 MMOL/L CHLORIDE S/P/B 85 (L) 98 - 107 MMOL/L CO2 24.3 21.0 - 32.0 MMOL/L GLUCOSE 113 (H) 70 - 99 MG/DL BUN 18 6 - 24 MG/DL CREATININE S/P/B 2.28 (H) 0.70 - 1.30 MG/DL CALCIUM 9.3 8.4 - 10.5 MG/DL BILIRUBIN TOTAL S/P/B 1.1 (H) 0.2 - 1.0 MG/DL ALKALINE PHOSPHATASE S/P/B 86 45 - 115 U/L AST 116 (H) 15 - 37 U/L ALT 163 (H) 16 - 63 U/L TOTAL PROTEIN S/P/B 8.2 6.4 - 8.2 G/DL ALBUMIN S/P/B 4.0 3.4 - 5.0 G/DL ANION GAP 15.7 (H) 5.0 - 15.0 MMOL/L OSMOLALITY (CALC) 263 MOSM/KG GFR ESTIMATE 36 (L) >89 ML/MIN/1.73 M2 GFR NOTES GFR REFERENCES: BASIC METABOLIC PANEL Collection Time: 01/25/23 5:00 AM Result Value Ref Range SODIUM 130 (L) 136 - 145 MMOL/L POTASSIUM 3.6 3.5 - 5.1 MMOL/L CHLORIDE S/P/B 92 (L) 98 - 107 MMOL/L CO2 27.9 21.0 - 32.0 MMOL/L GLUCOSE 96 70 - 99 MG/DL BUN 17 6 - 24 MG/DL CREATININE S/P/B 1.40 (H) 0.70 - 1.30 MG/DL CALCIUM 8.5 8.4 - 10.5 MG/DL ANION GAP 10.1 5.0 - 15.0 MMOL/L OSMOLALITY (CALC) 271 MOSM/KG GFR ESTIMATE 65 (L) >89 ML/MIN/1.73 M2 GFR NOTES GFR REFERENCES: CBC W/DIFF AUTOMATED Collection Time: 01/25/23 5:00 AM Result Value Ref Range WBC 12.03 (H) 4.00 - 10.80 x10'3/uL RBC 4.77 4.50 - 6.10 x10'6/uL HGB 16.5 13.0 - 18.0 G/DL HCT 46.5 37.0 - 52.0 % MCV 97.5 78.0 - 100.0 FL MCH 34.6 (H) 27.0 - 31.0 PG MCHC 35.5 33.0 - 36.0 G/DL RDW 11.4 (L) 11.5 - 14.5 % PLT 147 (L) 150 - 350 x10'3/uL MPV 10.4 7.4 - 10.4 FL CBC COMMENT NORMAL REFERENCE RANGE NOT ESTABLISHED FOR THE PROPORTIONAL LEUKOCYTE DIFFERENTIAL. NEUTROPHILS 67.2 % LYMPHOCYTES 19.0 % MONOCYTES 11.9 % EOSINOPHILS 1.0 % BASOPHILS 0.5 % IMMATURE GRANS 0.4 % NRBC 0.0 % ABS. NEUTROPHILS 8.08 1.60 - 8.30 x10'3/uL ABS. LYMPHOCYTES 2.29 0.80 - 4.70 x10'3/uL ABS. MONOCYTES 1.43 0.00 - 1.50 x10'3/uL ABS. EOSINOPHILS 0.12 0.00 - 0.40 x10'3/uL ABS. BASOPHILS 0.06 0.00 - 0.20 x10'3/uL ABS. IMMATURE GRANULOCYTES 0.05 (H) 0.00 - 0.03 x10'3/uL ABS. NUCLEATED RBC'S 0.00 0.00 x10'3/uL Discharge Medications: Medication List START taking these medications Morning Afternoon Evening Bedtime As Needed lisinopril 20 MG tablet Commonly known as: PRINIVIL Take 2 tablets (40 mg total) by mouth daily. Signed by: Dr. Delores Hong MD Start tomorrow after checking blood pressure CONTINUE taking these medications Morning Afternoon Evening Bedtime As Needed clobetasol 0.05 % cream Commonly known as: TEMOVATE Apply 15 g topically 2 (two) times daily. escitalopram 10 MG tablet Commonly known as: LEXAPRO Take 1 tablet by mouth daily. Take today STOP taking these medications lisinopril-hydroCHLOROthiazide 20-25 MG tablet Commonly known as: ZESTORETIC Medications Discontinued during this hospitalization: Disposition: discharged to home Patient Instructions: Activity: activity as tolerated Diet: regular diet. No alcohol use with medication Wound Care: none needed Follow-up appointments: 01/27/[address] Hong and f/u this week Findings that require further workup: CBC, CMP Followup Lab Orders: CBC, CMP Lab Frequency Next Occurrence COMPREHENSIVE METABOLIC PANEL Once 01/27/2023 Up With Assistance As needed Daily weights Daily (0500) CBC W/DIFF AUTOMATED Daily (early AM pickups) COMPREHENSIVE METABOLIC PANEL Daily (early AM pickups) MAGNESIUM Tomorrow (early AM pickups) Time Spent on Discharge 30 mins Signed: MT ZAVALA NP Cosigned by Delores Hong MD at 01/25/2023 4:59 PM PLAYGROUND DIRECTOR GROUND DIRECTOR GROUND DIRECTOR Associated attestation - Delores Hong MD - 01/25/2023 4:59 PM PLAYGROUND DIRECTOR I, Delores Hong MD personally interviewed and examined the patient, reviewed the hospital tests. I reviewed with the Nurse Practitioner the findings, plan of care and orders. I agree with planof care unless otherwise noted. documented in this encounter Discharge Instructions * Attachments The following attachments cannot be sent through Care Everywhere. * Acute Kidney Injury Discharge Instructions (Latvian) * Low Blood Pressure Discharge Instructions (Latvian) documented in this encounter Medications at Time of Discharge clobetasol (TEMOVATE) 0.05 % cream Apply 15 g topically 2 (two) times daily. 01/15/2023 escitalopram (LEXAPRO) 10 MG tablet Take 1 tablet by mouth daily. 01/15/2023 lisinopril (PRINIVIL) 20 MG tablet Take 2 tablets (40 mg total) by mouth daily. 60 tablet 01/25/2023 4 documented as of this encounter Progress Notes * Kiki Manley RN - 01/25/2023 11:27 AM CST Fall precautions in place Problem: Reduced risk for falls/injury Goal: Reduced Risk for Falls/Injury Outcome: Progressing Problem: Tobacco use Goal: Knowledge of tobacco use cessation methods Outcome: Progressing Offered nicotine patch Problem: Fluid Volume - Imbalance Goal: Absence of imbalanced fluid volume signs and symptoms Outcome: Progressing Ivf running @ 125cc/hr GROUND DIRECTOR * Rosalina Salas RN - 01/25/2023 9:16 AM CST CM met with pt for possible dc needs. Pt states he lives in his own home with his and is independent with all ADLs. Pt does not anticipate any dc needs. Will continue to follow , family will transport at dc. 01/25/23 0915 Referral Data Referral Reason Discharge Planning Source of Information Patient Patient Information Primary Caregiver Self Support System Immediate family Baseline ADL's Functional Status Independent Living Arrangements Spouse/significant other Type of Residence Private residence Ambulation Assistance No Bathing/Grooming Assistance No Dressing Assistance No Behavior Oriented Communication Talks Socioeconomic Needs Caregiver Needed No At Risk of Abuse or Neglect No Adequate Resources Yes Psychological Needs: Mental health concerns No Suspected Drug or Alcohol Abuse No Inappropriate Patient/Family Behaviors No Difficult Adjustment to Diagnosis No Recent Hospitalization Recent Hospitalization within 30 days No Anticipated Discharge Needs Change in Living Arrangements No In-Home Care or Equipment No Vocational and/or Role Loss No Inability to Complete ADL's No Anticipated DC Plan Living Arrangements Spouse/significant other Support Systems Spouse/significant other Type of Residence Private residence Assistance Needed No Patient expects to be discharged to: Home GROUND DIRECTOR * Leonor Clifford RN - 01/24/2023 11:38 PM CST Problem: Reduced risk for falls/injury Goal: Reduced Risk for Falls/Injury Outcome: Progressing Fall precautions in place. Non skid slippers, bed locked, bed alarm Problem: Tobacco use Goal: Knowledge of tobacco use cessation methods Outcome: Progressing Pt will be able to identify coping mechanisms for smoking cessation while in hospital. Problem: Fluid Volume - Imbalance Goal: Absence of imbalanced fluid volume signs and symptoms Outcome: Progressing Pt will continue to increase oral fluid intake. GROUND DIRECTOR documented in this encounter H&P Notes * Stacy Oakes, TRANSCRIBING MACHINE OPERATOR - 01/25/2023 11:58 AM CST Admission History and Physical History Primary Care Provider: SAI MEJIA MD Admitting Provider: Major Iglesias MD Attending Provider: Delores Hong MD Admission date: 01/24/2023 9:10 PM Stan Khan is a 42-year-old male who presents to the ER with a complaint of low blood pressure. Patient states on January 17 he was started on lisinopril hydrochlorothiazide. He has been takingit every day. Previous to this he was only on lisinopril. He states that since starting it his blood pressure is running low and at times he feels lightheaded and caused him to vomit. Yesterday evening his systolic blood pressure was only 95. Pt is seen today stating that he feels much improved. Hecomplains of cramping in bilateral lower extremities although with reported improvement. Denies abdominal pain diarrhea fevers chills or other complaints Past Medical History: Diagnosis Date ??? Alcohol drinking problem ??? Anxiety disorder, unspecified ??? Heavy smoker ??? Hypercholesteremia ??? Hypertension ??? Morbid obesity (CMS/HCC) ??? NEVAEH (obstructive sleep apnea) Past Surgical History: Procedure Laterality Date ??? FRACTURE SURGERY Social History Tobacco Use ??? Smoking status: Every Day Packs/day: 2.00 Years: 18.00 Pack years: 36.00 Types: Cigarettes ??? Smokeless tobacco: Never Substance Use Topics ??? Alcohol use: Yes Comment: (1) small bottle a day through week, (1) 5th on weekends a day. CARROL BEAM ??? Drug use: Never Family History Problem Relation Name Age of Onset ??? Alcohol Abuse Mother ??? Arthritis Mother ??? Asthma Mother ??? Depression Mother ??? Diabetes Mother ??? Alcohol Abuse Father ??? Cancer Father ??? COPD Father ??? Diabetes Father ??? Early Father ??? Heart Disease Father ??? Hypertension Father ??? Kidney Disease Father ??? Alcohol Abuse Sister Prior to Admission medications Medication Sig Start Date End Date Taking? Authorizing Provider clobetasol (TEMOVATE) 0.05 % cream Apply 15 g topically 2 (two) times daily. 01/15/23 Yes GENERICPROVIDER, DEFAULT HISTORY escitalopram (LEXAPRO) 10 MG tablet Take 1 tablet by mouth daily. 01/15/23 Yes GENERICPROVIDER, DEFAULT HISTORY lisinopril-hydroCHLOROthiazide (ZESTORETIC) 20-25 MG tablet Take 1 tablet by mouth 2 (two) times daily. 01/15/23 Yes GENERICPROVIDER, DEFAULT HISTORY ??? citalopram 20 mg Oral Nightly at bedtime ??? enoxaparin 40 mg Subcutaneous Nightly (enoxaparin) ??? influenza 0.5 mL Intramuscular Once ondansetron, polyethylene glycol No Known Allergies Review of Systems Constitutional: Negative. HENT: Negative. Eyes: Negative. Respiratory: Negative. Cardiovascular: Negative. Gastrointestinal: Negative. Genitourinary: Negative. Musculoskeletal: Positive for myalgias. Cramping to BLE Skin: Negative. Neurological: Negative. Endo/Heme/Allergies: Negative. Psychiatric/Behavioral: Negative. 10 point ROS negative except otherwise specified in HPI Physical Exam Filed Vitals: 01/25/23 0503 01/25/23 0504 01/25/23 0505 01/25/23 0835 BP: 113/74 99/54 99/54 129/77 Pulse: (!) 103 (!) 113 (!) 115 76 Resp: 20 22 Temp: 97.7 ??F (36.5 ??C) TempSrc: SpO2: 100% 98% 99% 97% Weight: Height: Physical Exam Constitutional: Appearance: He is obese. HENT: Head: Normocephalic and atraumatic. Nose: Nose normal. Mouth/Throat: Mouth: Mucous membranes are moist. Pharynx: Oropharynx is clear. Eyes: Extraocular Movements: Extraocular movements intact. Conjunctiva/sclera: Conjunctivae normal. Pupils: Pupils are equal, round, and reactive to light. Cardiovascular: Rate and Rhythm: Normal rate and regular rhythm. Pulses: Normal pulses. Heart sounds: Normal heart sounds. Pulmonary: Effort: Pulmonary effort is normal. Breath sounds: Normal breath sounds. Abdominal: General: Abdomen is protuberant. Bowel sounds are normal. Musculoskeletal: General: Normal range of motion. Cervical back: Normal range of motion. Skin: General: Skin is warm and dry. Capillary Refill: Capillary refill takes less than 2 seconds. Neurological: General: No focal deficit present. Mental Status: He is alert and oriented to person, place, and time. Psychiatric: Mood and Affect: Mood normal. Recent Labs Lab 01/24/23213601/25/23 0500 WBC 14.07* 12.03* RBC 4.94 4.77 HGB 17.5 16.5 HCT 47.4 46.5 MCV 96.0 97.5 MCH 35.4* 34.6* MCHC 36.9* 35.5 PLT 168 147* RDW 11.3* 11.4* MPV 10.1 10.4 PERNEU -- 67.2 PERLYM -- 19.0 PERMON -- 11.9 PEREOS -- 1.0 PERBASO -- 0.5 NEUC -- 8.08 LYMC 1.83 2.29 MONOC 1.41 1.43 EOSC -- 0.12 BASOC -- 0.06 Recent Labs Lab 01/24/23213601/25/23 0500 NA 125* 130* K 3.2* 3.6 CL 85* 92* CO2 24.3 27.9 AGAP 15.7* 10.1 BUN 18 17 CR 2.28* 1.40* GLU 113* 96 CA 9.3 8.5 TP 8.2 -- ALB 4.0 -- TBIL 1.1* -- ALKP 86 -- AST 116* -- ALT 163* -- No results for input(s): APTT, INR in the last 168 hours. Invalid input(s): PT No results for input(s): TROP, TROPIWB in the last 168 hours. Recent Labs Lab 01/24/23213601/25/23 0500 NA 125* 130* K 3.2* 3.6 CL 85* 92* CO2 24.3 27.9 BUN 18 17 CR 2.28* 1.40* CA 9.3 8.5 GLU 113* 96 AGAP 15.7* 10.1 TP 8.2 -- ALB 4.0 -- ALT 163* -- WBC 14.07* 12.03* HGB 17.5 16.5 PLT 168 147* Assessment/ Plan # LAWSON #Dehydration # Electrolyte imbalace # Anxiety ?? Sodium on admission 125, today 130 ?? Potassium on admission 3.2, today 3.6 ?? WBC on admission 14.07, today 12.03 ?? Continue Nacl 0.9% ar 125 ml/hr ?? Lovenox 40 mg for DVT prophylaxis ?? Zofran 4 mg Q 6 hrs PRN ?? Celexa 20 mg dly to substitute escitalopram 10 mg daily (home med) for anxiety. STACY OAKES NP Cosigned by Delores Hong MD at 01/25/2023 1:55 PM PLAYGROUND DIRECTOR GROUND DIRECTOR GROUND DIRECTOR Associated attestation - Delores Hong MD - 01/25/2023 1:55 PM PLAYGROUND DIRECTOR I, Delores Hong MD personally interviewed and examined the patient, reviewed the hospital tests. I reviewed with the Nurse Practitioner the findings, plan of care and orders. I agree with planof care unless otherwise noted. documented in this encounter ED Notes * Dinesh eDlgado MD - 01/24/2023 9:39 PM CST eMERGENCY dEPARTMENT eNCOUnter CHIEF COMPLAINT Chief Complaint Patient presents with ??? Hypotension HPI HPI Stan Khan is a 42-year-old male who presents to the ER with a complaint of low blood pressure. Patient states on January 17 he was started on lisinopril hydrochlorothiazide. He has been takingit every day. Previous to this he was only on lisinopril. He states that since starting it his blood pressure is running low and at times he feels lightheaded and caused him to vomit. This evening his systolic blood pressure was only 95. No pain or other complaints at this time. He states he is tryto drink a lot of fluids today but has not had much of an appetite so did not eat much since breakfast. Denies abdominal pain diarrhea fevers chills or other complaints. ALLERGIES No Known Allergies CURRENT MEDICATIONS Current Outpatient Medications Medication Sig ??? escitalopram (LEXAPRO) 10 MG tablet Take 1 tablet by mouth daily. ??? lisinopril-hydroCHLOROthiazide (ZESTORETIC) 20-25 MG tablet Take 1 tablet by mouth 2 (two) times daily. PAST MEDICAL HISTORY Past Medical History: Diagnosis Date ??? Alcohol drinking problem ??? Heavy smoker ??? Hypercholesteremia ??? Hypertension ??? Morbid obesity (CMS/HCC) ??? NEVAEH (obstructive sleep apnea) SURGICAL HISTORY Past Surgical History: Procedure Laterality Date ??? FRACTURE SURGERY SOCIAL HISTORY Social History Socioeconomic History ??? Marital status: Tobacco Use ??? Smoking status: Every Day Packs/day: 2.00 Years: 18.00 Pack years: 36.00 Types: Cigarettes ??? Smokeless tobacco: Never Substance and Sexual Activity ??? Alcohol use: Yes Comment: (1) small bottle a day through week, (1) 5th on weekends a day. CARROL BEAM ??? Drug use: Never ??? Sexual activity: Yes FAMILY HISTORY Family History Problem Relation Name Age of Onset ??? Alcohol Abuse Mother ??? Arthritis Mother ??? Asthma Mother ??? Depression Mother ??? Diabetes Mother ??? Alcohol Abuse Father ??? Cancer Father ??? COPD Father ??? Diabetes Father ??? Early Father ??? Heart Disease Father ??? Hypertension Father ??? Kidney Disease Father ??? Alcohol Abuse Sister REVIEW OF SYSTEMS Review of Systems All other ROS negative unless noted above in HPI. PHYSICAL EXAM Physical Exam Filed Vitals: 01/24/233 BP: 105/73 Pulse: 83 Resp: 18 Temp: 96.5 ??F (35.8 ??C) TempSrc: Temporal SpO2: 98% Weight: 129.7 kg (286 lb) Height: 5' 9 (1.753 m) The patient is a well developed and well nourished adult male in no distress, alert and oriented. HEENT: PERRL, EOMI Throat without lesions, mucous membranes moist NECK: Supple without adenopathy or rigidity CHEST: Lungs clear and equal to auscultation Heart regular rate and rhythm without murmur ABD: Soft, NABS, non tender EXT: No clubbing, cyanosis, edema NEURO: CN II-XII intact, no focal weakness EKG RADIOLOGY No orders to display LABS Results for orders placed or performed during the hospital encounter of 01/24/23 CBC W/DIFF AUTOMATED Result Value Ref Range WBC 14.07 (H) 4.00 - 10.80 x10'3/uL RBC 4.94 4.50 - 6.10 x10'6/uL HGB 17.5 13.0 - 18.0 G/DL HCT 47.4 37.0 - 52.0 % MCV 96.0 78.0 - 100.0 FL MCH 35.4 (H) 27.0 - 31.0 PG MCHC 36.9 (H) 33.0 - 36.0 G/DL RDW 11.3 (L) 11.5 - 14.5 % PLT 168 150 - 350 x10'3/uL MPV 10.1 7.4 - 10.4 FL CBC COMMENT NORMAL REFERENCE RANGE NOT ESTABLISHED FOR THE PROPORTIONAL LEUKOCYTE DIFFERENTIAL. SEG NEUTROPHILS 77 % LYMPHOCYTES 13 % MONOCYTES 10 % ABS SEGMENTED NEUTS 10.83 (H) 1.60 - 8.30 x10'3/uL ABS. LYMPHOCYTES 1.83 0.80 - 4.70 x10'3/uL ABS. MONOCYTES 1.41 0.10 - 1.50 x10'3/uL PLT MORPH. NORMAL RBC MORPHOLOGY NORMAL COMPREHENSIVE METABOLIC PANEL Result Value Ref Range SODIUM 125 (L) 136 - 145 MMOL/L POTASSIUM 3.2 (L) 3.5 - 5.1 MMOL/L CHLORIDE S/P/B 85 (L) 98 - 107 MMOL/L CO2 24.3 21.0 - 32.0 MMOL/L GLUCOSE 113 (H) 70 - 99 MG/DL BUN 18 6 - 24 MG/DL CREATININE S/P/B 2.28 (H) 0.70 - 1.30 MG/DL CALCIUM 9.3 8.4 - 10.5 MG/DL BILIRUBIN TOTAL S/P/B 1.1 (H) 0.2 - 1.0 MG/DL ALKALINE PHOSPHATASE S/P/B 86 45 - 115 U/L AST 116 (H) 15 - 37 U/L ALT 163 (H) 16 - 63 U/L TOTAL PROTEIN S/P/B 8.2 6.4 - 8.2 G/DL ALBUMIN S/P/B 4.0 3.4 - 5.0 G/DL ANION GAP 15.7 (H) 5.0 - 15.0 MMOL/L OSMOLALITY (CALC) 263 MOSM/KG GFR ESTIMATE 36 (L) >89 ML/MIN/1.73 M2 GFR NOTES GFR REFERENCES: ED MEDICATIONS Medications potassium chloride CR (KLOR-CON M) tablet 40 mEq (has no administration in time range) sodium chloride 0.9% bolus infusion 1,000 mL (has no administration in time range) sodium chloride 0.9% bolus infusion 1,000 mL (1,000 mLs Intravenous New Bag 01/24/232148) PROCEDURES Procedures CONSULTS: ED COURSE & MEDICAL DECISION MAKING [facility] ED Course as of 01/24/232214Jan 24, 20232205 COMPREHENSIVE METABOLIC PANEL(!) [WM] 2205 CBC W/DIFF AUTOMATED(!) Laboratory work-up shows hyponatremia hypokalemia hypochloremia with acute kidney injury as evidenced by creatinine of 2.28. White count is also elevated although I suspect this related to the dehydration. We are continuing to give IV fluids and with his labs showing these results I think it is best to keep him for further hydration. Likely the majority of this is related to the hydrochlorothiazide although he did say he was vomiting over the weekend as well. [WM] ED Course User Index [WM] Dinesh Delgado MD Patient's blood pressure is in the normal range now but he states is low for him. We will obtain a laboratory work-up to ensure there is no other cause for low blood pressure such as anemia or electrolyte abnormality and give him 1 L of fluid while observing his blood pressure in the emergency department. In fact laboratory work-up does show significant abnormalities as noted above. I initially ordered a liter bolus I will give him a second liter and then switch him to a saline infusion. Oral potassium is been ordered. I discussed the patient with Dr. Iglesias on-call tonight for Dr. Hong. We will admit him for observation continued fluids hold his blood pressure medicine repeat his labs in the morning. FINAL IMPRESSION SNOMED CT(R) 1. LAWSON (acute kidney injury) (CMS/HCC) ACUTE INJURY OF KIDNEY 2. Hyponatremia HYPONATREMIA 3. Hypokalemia HYPOKALEMIA No follow-up provider specified. New Prescriptions No medications on file Dinesh Delgado MD 01/24/232214 GROUND DIRECTOR * Jaci Ramirez RN - 01/24/2023 9:11 PM CST Pt presents to ER with c/o hypotension, pt states his BP meds were changed 1 week ago he is now taking Lisinopril/hctz. Pt significant other states pt has had a headache and nausea/vomiting all week.Pt states this am he woke up feeling normal but states during work he felt dizzy, checked his BP and his reading was 95/72, states prior to med change pt was running 250/180. Pt states he currently is feeling dizzy and nauseated. GROUND DIRECTOR documented in this encounter Plan of Treatment Not on file documented as of this encounter Goals Goal Patient Goal Type Associated Problems Recent Progress Patient-Stated? Author Patient will return to prior living situation and remain independent in ADLs upon discharge from hospital Lifestyle Rosalina Richard RN documented as of this encounter Procedures Procedure Name Priority Date/Time Associated Diagnosis Comments BASIC METABOLIC PANEL Routine 01/25/2023 5:00 AM PLAYGROUND DIRECTOR CBC W/DIFF AUTOMATED Routine 01/25/2023 5:00 AM PLAYGROUND DIRECTOR COMPREHENSIVE METABOLIC PANEL STAT 01/24/2023 9:37 PM PLAYGROUND DIRECTOR CBC W/DIFF AUTOMATED STAT 01/24/2023 9:37 PM PLAYGROUND DIRECTOR documented in this encounter Results * (ABNORMAL) CBC W/DIFF AUTOMATED (01/25/2023 5:00 AM PLAYGROUND DIRECTOR) WBC 12.03(H) 4.00 - 10.80 x10'3/uL 01/25/2023 5:29 AM PLAYGROUND DIRECTOR [facility] RBC 4.77 4.50 - 6.10 x10'6/uL 01/25/2023 5:29 AM PLAYGROUND DIRECTOR [facility] HGB 16.5 13.0 - 18.0 G/DL 01/25/2023 5:29 AM PLAYGROUND DIRECTOR [facility] HCT 46.5 37.0 - 52.0 % 01/25/2023 5:29 AM PLAYGROUND DIRECTOR [facility] MCV 97.5 78.0 - 100.0 FL 01/25/2023 5:29 AM [facility] MCH 34.6(H) 27.0 - 31.0 PG 01/25/2023 5:29 AM [facility] MCHC 35.5 33.0 - 36.0 G/DL 01/25/2023 5:29 AM [facility] RDW 11.4(L) 11.5 - 14.5 % 01/25/2023 5:29 AM [facility] PLT 147(L) 150 - 350 x10'3/uL 01/25/2023 5:29 AM [facility] MPV 10.4 7.4 - 10.4 FL 01/25/2023 5:29 AM [facility] CBC COMMENT NORMAL REFERENCE RANGE NOT ESTABLISHED FOR THE PROPORTIONAL LEUKOCYTE DIFFERENTIAL. 01/25/2023 5:29 AM [facility] NEUTROPHILS % 67.2 % 01/25/2023 5:29 AM [facility] LYMPHOCYTES % 19.0 % 01/25/2023 5:29 AM [facility] MONOCYTES % 11.9 % 01/25/2023 5:29 AM [facility] EOSINOPHILS % 1.0 % 01/25/2023 5:29 AM [facility] BASOPHILS % 0.5 % 01/25/2023 5:29 AM [facility] IMMATURE GRANS % 0.4 % 01/25/20 5:29 AM [facility] NRBC 0.0 % 01/25/2023 5:29 AM [facility] ABS. NEUTROPHILS 8.08 1.60 - 8.30 x10'3/uL 01/25/2023 5:29 AM [facility] ABS. LYMPHOCYTES 2.29 0.80 - 4.70 x10'3/uL 01/25/2023 5:29 AM [facility] ABS. MONOCYTES 1.43 0.00 - 1.50 x10'3/uL 01/25/2023 5:29 AM [facility] ABS. EOSINOPHILS 0.12 0.00 - 0.40 x10'3/uL 01/25/2023 5:29 AM [facility] ABS. BASOPHILS 0.06 0.00 - 0.20 x10'3/uL 01/25/2023 5:29 AM [facility] ABS. IMMATURE GRANULOCYTES 0.05(H) 0.00 - 0.03 x10'3/uL 01/25/2023 5:29 AM PLAYGROUND DIRECTOR [facility] ABS. NUCLEATED RBC'S 0.00 0.00 x10'3/uL 01/25/2023 5:29 AM [facility] 01/25/2023 5:00 AM [facility] Dinesh Delgado MD LABORATORY Final Result [facility] [address] [place] [address], * (ABNORMAL) BASIC METABOLIC PANEL (01/25/2023 5:00 AM PLAYGROUND DIRECTOR) SODIUM S/P/B 130(L) 136 - 145 MMOL/L 01/25/2023 5:33 AM [facility] POTASSIUM S/P/B 3.6 3.5 - 5.1 MMOL/L 01/25/2023 5:33 AM [facility] CHLORIDE S/P/B 92(L) 98 - 107 MMOL/L 01/25/2023 5:33 AM [facility] CO2 27.9 21.0 - 32.0 MMOL/L 01/25/2023 5:33 AM [facility] GLUCOSE 96 70 - 99 MG/DL 01/25/2023 5:33 AM [facility] Comment: FASTING GLUCOSE 100 TO 125 MG/DL IS CONSISTENT WITH IMPAIRED FASTING GLUCOSE. FASTING GLUCOSE >125 MG/DL IS CONSISTENT WITH DIABETES. RANDOM GLUCOSE >200 MG/DL WITH HYPERGLYCEMIC SYMPTOMS IS CONSISTENT WITH DIABETES. PER ADA GUIDELINES BUN 17 6 - 24 MG/DL 01/25/2023 5:33 AM [facility] CREATININE S/P/B 1.40(H) 0.70 - 1.30 MG/DL 01/25/2023 5:33 AM [facility] CALCIUM S/P/B 8.5 8.4 - 10.5 MG/DL 01/25/2023 5:33 AM [facility] ANION GAP 10.1 5.0 - 15.0 MMOL/L 01/25/2023 5:33 AM [facility] OSMOLALITY (CALC) 271 MOSM/KG 023 5:33 AM [facility] Comment:REFERENCE RANGE NOT ESTABLISHED GFR ESTIMATE 65(L) >89 ML/MIN/1. 73 M2 01/25/2023 5:33 AM [facility] GFR NOTES GFR REFERENCE S: 01/25/2023 5:33 AM [facility] Comment: THE ESTIMATED GFR IS CALCULATED USING THE 2020 CKD-EPI EQUATION. THE FOLLOWING CATEGORIES FOR GRADING RENAL FUNCTION ARE RECOMMENDED BY THE INTERNATIONAL SOCIETY OF NEPHROLOGY (KDIGO 2012 CLINICAL PRACTICE GUIDELINE). G1,NORMAL OR HIGH: >89 ml/min/1.73 m2 G2,MILDLY DECREASED: 60-89 ml/min/1.73 m2 G3A,MILDLY TO MODERATELY DECREASED: 45-59 ml/min/1.73 m2 G3B,MODERATELY TO SEVERELY DECREASED: 30-44 ml/min/1.73 m2 G4,SEVERELY DECREASED: 15-29 ml/min/1.73 m2 G5,KIDNEY FAILURE: <15 ml/min/1.73 m2 01/25/2023 5:00 AM PLAYGROUND DIRECTOR us Dinesh Delgado MD LABORATORY Final Result [facility] [address] [place] [address], * (ABNORMAL) COMPREHENSIVE METABOLIC PANEL (01/24/2023 9:37 PM PLAYGROUND DIRECTOR) SODIUM S/P/B 125(L) 136 - 145 MMOL/L 01/24/2023 10:03 PM PLAYGROUND DIRECTOR [facility] POTASSIUM S/P/B 3.2(L) 3.5 - 5.1 MMOL/L 01/24/2023 10:03 PM [facility] CHLORIDE S/P/B 85(L) 98 - 107 MMOL/L 01/24/2023 10:03 PM [facility] CO2 24.3 21.0 - 32.0 MMOL/L 01/24/2023 10:03 PM [facility] GLUCOSE 113(H) 70 - 99 MG/DL 01/24/2023 10:03 PM [facility] Comment: FASTING GLUCOSE 100 TO 125 MG/DL IS CONSISTENT WITH IMPAIRED FASTING GLUCOSE. FASTING GLUCOSE >125 MG/DL IS CONSISTENT WITH DIABETES. RANDOM GLUCOSE >200 MG/DL WITH HYPERGLYCEMIC SYMPTOMS IS CONSISTENT WITH DIABETES. PER ADA GUIDELINES BUN 18 6 - 24 MG/DL 01/24/2023 10:03 PM [facility] CREATININE S/P/B 2.28(H) 0.70 - 1.30 MG/DL 01/24/2023 10:03 PM [facility] CALCIUM S/P/B 9.3 8.4 - 10.5 MG/DL 01/24/2023 10:03 PM [facility] BILIRUBIN TOTAL S/P/B 1.1(H) 0.2 - 1.0 MG/DL 01/24/2023 10:03 PM [facility] Comment: THIS ASSAY IS NOT RECOMMENDED FOR PATIENTS UNDERGOING TREATMENT WITH ELTROMBOPAG DUE TO THE POTENTIAL FOR FALSELY ELEVATED RESULTS. ALKALINE PHOSPHATASE S/P/B 86 45 - 115 U/L 01/24/2023 10:03 PM [facility] AST 116(H) 15 - 37 U/L 01/24/2023 10:03 PM [facility] ALT 163(H) 16 - 63 U/L 01/24/2023 10:03 PM [facility] TOTAL PROTEIN S/P/B 8.2 6.4 - 8.2 G/DL 01/24/2023 10:03 PM [facility] ALBUMIN S/P/B 4.0 3.4 - 5.0 G/DL 01/24/2023 10:03 PM [facility] ANION GAP 15.7(H) 5.0 - 15.0 MMOL/L 01/24/2023 10:03 PM [facility] OSMOLALITY (CALC) 263 MOSM/KG 023 10:03 PM [facility] Comment:REFERENCE RANGE NOT ESTABLISHED GFR ESTIMATE 36(L) >89 ML/MIN/1. 73 M2 01/24/2023 10:03 PM [facility] GFR NOTES GFR REFERENCE S: 01/24/2023 10:03 PM [facility] Comment: THE ESTIMATED GFR IS CALCULATED USING THE 2020 CKD-EPI EQUATION. THE FOLLOWING CATEGORIES FOR GRADING RENAL FUNCTION ARE RECOMMENDED BY THE INTERNATIONAL SOCIETY OF NEPHROLOGY (KDIGO 2012 CLINICAL PRACTICE GUIDELINE). G1,NORMAL OR HIGH: >89 ml/min/1.73 m2 G2,MILDLY DECREASED: 60-89 ml/min/1.73 m2 G3A,MILDLY TO MODERATELY DECREASED: 45-59 ml/min/1.73 m2 G3B,MODERATELY TO SEVERELY DECREASED: 30-44 ml/min/1.73 m2 G4,SEVERELY DECREASED: 15-29 ml/min/1.73 m2 G5,KIDNEY FAILURE: <15 ml/min/1.73 m2 01/24/2023 9:37 PM PLAYGROUND DIRECTOR Dinesh Delgado MD LABORATORY Final Result [facility] [address] [place] [address], * (ABNORMAL) CBC W/DIFF AUTOMATED (01/24/2023 9:37 PM PLAYGROUND DIRECTOR) WBC 14.07(H) 4.00 - 10.80 x10'3/uL 01/24/2023 9:58 PM [facility] RBC 4.94 4.50 - 6.10 x10'6/uL 01/24/2023 9:58 PM [facility] HGB 17.5 13.0 - 18.0 G/DL 01/24/2023 9:58 PM [facility] HCT 47.4 37.0 - 52.0 % 01/24/2023 9:58 PM [facility] MCV 96.0 78.0 - 100.0 FL 01/24/2023 9:58 PM [facility] MCH 35.4(H) 27.0 - 31.0 PG 01/24/2023 9:58 PM [facility] MCHC 36.9(H) 33.0 - 36.0 G/DL 01/24/2023 9:58 PM [facility] RDW 11.3(L) 11.5 - 14.5 % 01/24/2023 9:58 PM [facility] PLT 168 150 - 350 x10'3/uL 01/24/2023 9:58 PM [facility] MPV 10.1 7.4 - 10.4 FL 01/24/2023 9:58 PM [facility] CBC COMMENT NORMAL REFERENCE RANGE NOT ESTABLISHED FOR THE PROPORTIONAL LEUKOCYTE DIFFERENTIAL. 01/24/2023 9:58 PM [facility] SEG NEUTROPHILS 77 % 10:06 PM [facility] LYMPHOCYTES 13 % 01/24/2023 10:06 PM [facility] MONOCYTES 10 % 01/24/2023 10:06 PM [facility] ABS SEGMENTED NEUTS 10.83(H) 1.60 - 8.30 x10'3/uL 01/24/2023 10:06 PM [facility] ABS. LYMPHOCYTES 1.83 0.80 - 4.70 x10'3/uL 01/24/2023 10:06 PM [facility] ABS. MONOCYTES 1.41 0.10 - 1.50 x10'3/uL 01/24/2023 10:06 PM [facility] PLT MORPH. NORMAL 01/24/2023 10:06 PM [facility] RBC MORPHOLOGY NORMAL 01/24/2023 10:06 PM [facility] 01/24/2023 9:37 PM PLAYGROUND DIRECTOR us Dinesh Delgado MD LABORATORY Final Result [facility] [address] [place] [address], documented in this encounter Visit Diagnoses Diagnosis LAWSON (acute kidney injury) ([facility])- Primary Acute kidney failure, unspecified LAWSON (acute kidney injury) ([facility]) Acute kidney failure, unspecified Hyponatremia Hyposmolality and/or hyponatremia Hypokalemia Hypopotassemia Dehydration Dehydration documented in this encounter Admitting Diagnoses Diagnosis LAWSON (acute kidney injury) ([facility]) Acute kidney failure, unspecified Dehydration documented in this encounter Administered Medications Inactive Administered Medications - up to 3 most recent administrations Medication Order MAR Action Action Date Dose Rate Site enoxaparin (LOVENOX) 40 MG/0.4ML syringe 40 mg 40 mg, Subcutaneous, Nightly (enoxaparin), First dose on Tue01/25/23 at 2100, Until Discontinued, Administer by deep SubQ injection alternating between the left or right anterolateral and left or right posterolateral abdominal wall. ondansetron (ZOFRAN) injection 4 mg 4 mg, Intravenous, Every 6 hours PRN, Nausea, Starting on Tue01/25/23 at 0016, Until Tue01/25/23 at 1650, IV push over 2-5 minutes. Given 01/25/2023 12:19 AM PLAYGROUND DIRECTOR 4 mg potassium chloride CR (KLOR-CON M) tablet 40 mEq 40 mEq, Oral, Once, 1 dose, On Tue01/24/23 at 2215, Do not chew, crush, or suck on tablet. May break in half. May dissolve whole tablet in 120 mL of water and drink immediately. Given 01/24/2023 10:18 PM PLAYGROUND DIRECTOR 40 mEq sodium chloride 0.9% bolus infusion 1,000 mL 1,000 mL, Intravenous, Administer over 15 Minutes, Once, 1 dose, On Tue01/24/23 at 2130 New Bag 01/24/2023 9:49 PM PLAYGROUND DIRECTOR 1,000 mLs sodium chloride 0.9% bolus infusion 1,000 mL 1,000 mL, Intravenous, Administer over 15 Minutes, Once, 1 dose, On Tue01/24/23 at 2215 New Bag 01/24/2023 10:22 PM PLAYGROUND DIRECTOR 1,000 mLs sodium chloride 0.9% infusion at 125 mL/hr, Intravenous, Continuous, Starting on Tue01/24/23 at 2300, Until Tue01/25/23 at 1059 New Bag 01/25/2023 8:35 AM PLAYGROUND DIRECTOR 125 mL/hr New Bag 01/24/2023 11:04 PM PLAYGROUND DIRECTOR 125 mL/hr documented in this encounter Active and Recently Administered Medications Times are shown in PLAYGROUND DIRECTOR. Scheduled Medication Order 01/23/2023 01/24/2023 01/25/2023 citalopram (CeleXA) tablet 20 mg 20 mg, Oral, Nightly at bedtime, First dose on Tue01/24/23 at 2245, Until Discontinued, Therapeutic interchange for ESCITALOPRAM 10 MG 2356 (Not Given - Provider: Leonor Clifford RN - Reason: Patient already took) 0852 (Not Given - Provider: Kiki Manley RN - Reason: Patient/family declined) enoxaparin (LOVENOX) 40 MG/0.4ML syringe 40 mg(Linked Group 1) 40 mg, Subcutaneous, Nightly (enoxaparin), First dose on Tue01/25/23 at 2100, Until Discontinued, Administer by deep SubQ injection alternating between the left or right anterolateral and left or right posterolateral abdominal wall. influenza virus vaccine (QUAD) injection 0.5 mL 0.5 mL, Intramuscular, Once, 1 dose, On Tue01/25/23 at 0900, Please give vaccine prior to discharge. 0852 (Not Given - Provider: Kiki Manley RN - Reason: Patient/family declined) potassium chloride CR (KLOR-CON M) tablet 40 mEq (COMPLETED) 40 mEq, Oral, Once, 1 dose, On Tue01/24/23 at 2215, Do not chew, crush, or suck on tablet. May break in half. May dissolve whole tablet in 120 mL of water and drink immediately. 2218 (Given - Provider: Jaci Ramirez RN) sodium chloride 0.9% bolus infusion 1,000 mL (COMPLETED) 1,000 mL, Intravenous, Administer over 15 Minutes, Once, 1 dose, On Tue01/24/23 at 2130 2149 (New Bag - Provider: Shayy Ward RN)222 (Infusion Stop Time - Provider: Jaci Ramirez, GIO) sodium chloride 0.9% bolus infusion 1,000 mL (COMPLETED) 1,000 mL, Intravenous, Administer over 15 Minutes, Once, 1 dose, On Tue01/24/23 at 2215 2222 (New Bag - Provider: Jaci Ramirez, RN)2302 (Infusion Stop Time - Provider: Leonor Clifford, GIO) Continuous Medication Order 01/23/2023 01/24/2023 01/25/2023 sodium chloride 0.9% infusion at 125 mL/hr, Intravenous, Continuous, Starting on Tue01/24/23 at 2300, Until Tue01/25/23 at 1059 2304 (New Bag - Provider: Leonor Clifford RN) 0830 (Infusion Stop Time - Provider: Kiki Manley, GIO)0835 (New Bag - Provider: Kiki Manley, IGO)1108 (Infusion Stop Time - Provider: Kiki Manley, GIO) PRN Medication Order 01/23/2023 01/24/2023 01/25/2023 ondansetron (ZOFRAN) injection 4 mg 4 mg, Intravenous, Every 6 hours PRN, Nausea, Starting on Tue01/25/23 at 0016, Until Tue01/25/23 at 1650, IV push over 2-5 minutes. 0019 (Given - Provid er: Leonor Clifford RN) polyethylene glycol (GLYCOLAX) packet 17 g 17 g, Oral, Daily as needed, Constipation, Starting on Tue01/25/23 at 0932, Until Tue01/25/23 at 1650, If both senna and polyethylene glycol are ordered, use 1st; if no response by next dosing interval, go to next option. Linked Groups Order Group 1: enoxaparin (LOVENOX) 40 MG/0.4ML syringe 40 mgJump to med 40 mg, Subcutaneous, Nightly (enoxaparin), First dose on Tue01/25/23 at 2100, Until Discontinued, Administer by deep SubQ injection alternating between the left or right anterolateral and left or right posterolateral abdominal wall. And Moderate Risk for VTE (COMPLETED) documented in this encounter Care Teams Customer Contact Representative Relationship Specialty Start Date End Date Sai Mejia MD [address] [place] [address] PCP - General FAMILY PRACTICE 12/27/20 2 documented as of this encounter
--- OUTSIDE RECORDS SUMMARY | 2024-12-08 03:46 | XMS_ITS | Clinical Summary ---
Author Organization [facility] Address [address] [place] [address]. [place], [place] [id number] [place] [id number] Care Team Providers Care Fur Comber Name Role Phone Delores Hong MD Primary Care Provider [phone] Allergies No known active allergies Medications escitalopram (LEXAPRO) 10 MG tablet Take 1 tablet by mouth daily. 3 Active clobetasol (TEMOVATE) 0.05 % cream Apply 15 g topically 2 (two) times daily. 3 Active Active Problems Problem Noted Date Diagnosed Date Dehydration 01/25/2023 LAWSON (acute kidney injury) 01/24/2023 Syncope and collapse 12/28/2020 Alcohol intoxication 12/28/2020 Morbid obesity ([facility]) Hypertension NEVAEH (obstructive sleep apnea) Immunizations Name Administration Dates Next Due Fluzone 6 Months+ Quad (0.5 mL Prefilled Syringe) 01/25/2023(Deferred: Patient/family declined) Family History Medical History Relation Comments Alcohol Abuse Father COPD Father Cancer Father Diabetes Father Early Father Heart Disease Father Hypertension Father Kidney Disease Father Alcohol Abuse Mother Arthritis Mother Asthma Mother Depression Mother Diabetes Mother Alcohol Abuse Sister Relation Status Comments Father Mother Sister Social History Tobacco Use Types Packs/Day Years [...] week 01/24/2023 How often do you attend [facility] or hinduism services? 1 to 4 times per year [...] Recorded Patient Health Questionnaire-2 Score 0 01/24/2023 [facility] Occupational Stress Questionnaire Answer [...] place to sleep or slept in a [place] care facility (including now)? 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 on file Not on file Not on file Last Filed Vital Signs Vital Sign Reading Time Taken Comments Blood Pressure 126/84 01/25/2023 12:35 PM AFTER SCHOOL TEACHER Pulse 75 01/25/2023 12:35 PM AFTER SCHOOL TEACHER Temperature 36.6 ??C (97.9 ??F) 01/25/2023 12:[address] Respiratory Rate 20 01/25/2023 12:35 PM AFTER SCHOOL TEACHER Oxygen Saturation 96% 01/25/2023 12:35 PM AFTER SCHOOL TEACHER Inhaled Oxygen Concentration - - Weight 131.1 kg (289 lb) 01/24/2023 10:39 PM AFTER SCHOOL TEACHER Height 177.8 cm (5' 10 ) 01/24/2023 10:39 PM AFTER SCHOOL TEACHER Body Mass Index 41.47 01/24/2023 10:39 PM AFTER SCHOOL TEACHER Plan of Treatment Health Maintenance Due Date Last Done Comments Annual Physical 1984 Pneumococcal Vaccine: Pediat rics (0 to 5 Years) and At-Risk Patients (6 to 64 Years) (1 of 2 - PCV) 1987 Hepatitis C 1999 DTaP, Tdap and Td Vaccines ( 1 - Tdap) 2000 Hepatitis B Vaccines (1 of 3 - 19+ 3-dose series) 2000 COVID-19 Vaccine (2023-2 5 season) 2024 Influenza Adult (#1) 2024 HPV Vaccines Aged Out No longer eligi ble based on patient's age to complete this topic Meningococcal Vaccine Aged Out No kasia diana eligible based on patient's age to complete this topic RSV Immunizations Under 20 Months Aged Out No longer eligible based on patient's age to complete this topic Goals Goal Patient Goal Type Associated Problems Recent Progress Patient-Stated? Author Patient will return to prior living situation and remain independent in ADLs upon discharge from hospital Lifestyle Rosalina Richard, RN Insurance [employer] Advance Directives * Full Code (Latest Code Status on File) Date Activated Date Inactivated Comments 01/25/2023 9:33 AM 01/25/2023 4:50 PM * Full Code Date Activated Date Inactivated Comments 01/24/2023 10:39 PM 01/25/2023 9:33 AM * Full Code Date Activated Date Inactivated Comments 12/28/2020 1:26 AM 12/28/2020 2:37 PM Care Teams Fur Comber Relationship Specialty Start Date End Date Delores Hong MD [address] [place] [phone] PCP - General FAMILY PRACTICE 01/23/24
--- OUTSIDE RECORDS SUMMARY | 2024-12-08 03:47 | XMS_ITS | Encounter Summary ---
Author Organization [facility] Address [address] [place] [address]. [place], [place] [id number] [place] [id number] Care Team Providers Care Architecture Consultant Name Role Phone Sai Mejia MD Primary Care Provider [phone] Reason for Referral * Imaging (Emergency) - Closed Specialty Diagnoses / Procedures Referred By Contac t Referred To Contact RADIOLOGY Procedures CTA HEAD+NECK Young Hughes APNP [address] [place] [address] Phone: tel: fax: Referral ID Status Reason Start Date Expiration Date Visits Re quested Visits Authorized [id number] Closed 12/28/2020 01/25/2022 1 1 A PRODUCTION MANAGER * Imaging (Emergency) - Closed Specialty Diagnoses / Procedures Referred By Contraimundo t Referred To Contact RADIOLOGY Procedures CT HEAD WO CON Nixon Otero MD [address] [place] [id number] Phone: tel: fax: Referral ID Status Reason Start Date Expiration Date Visits Re quested Visits Authorized [id number] Closed 12/27/2020 01/25/2022 1 1 A PRODUCTION MANAGER Reason for Visit * Reason Comments Syncope Pt arrives to ED wit h c/o vomiting, then passed out. Thirty seconds later he stated he was fine, then wasn't responding again. Has had constant headaches and right leg pain for past week. * Auth/Cert Specialty Diagnoses / Procedures Referred By Contac t Referred To Contact Diagnoses Syncope and collapse Syncope and collapse Referral ID Status Reason Start Date Expiration Date Visits Re quested Visits Authorized [id number] 1 1 Encounter Details Date Type Department Care Team (Late st Contact Info) Description 12/27/2020 10:39 PM MEDIA PRODUCTION MANAGER - 12/28/2020 12:30 PM MEDIA PRODUCTION MANAGER [facility] [place] [address] [place] [address] Nixon Otero MD [address] [place] [address] Sai Mejia MD [address] [place] [address] Abigail Mack MD [address] [place] [address] Syncope (Pt arrives to ED with c/o vomiting, then passed out. Thirty seconds later he stated he was fine, then wasn't responding again. Has had constant headaches and right leg pain for past week. ) Discharge Disposition: Home or Self Care (Routine Discharge) Social History Tobacco Use Types Packs/Day Years Used Date Smoking Tobacco: Every Day Cigarettes 2 18 Smokeless Tobacco: Never Tobacco Cessation:Ready to Q uit: No Alcohol Use Standard Drinks/Week Comments Yes 0 (1 standard drink = 0.6 oz pure alcohol) (1) small bottle a day through week, (1) 5th on weekends a day. ALFRED CLINTON Overall Financial Resource Strain (CARDIA) Answe r Date Recorded How hard is it for you to pa y for the very basics like food, housing, medical care, and heating? Not hard at all 12/28/2020 [employer] - Occupational Stress Questionnaire Answer Date Recorded Do you feel stress - tense, restless, nervous, or anxious, or unable to sleep at night because your mind is troubled all the time - these days? To some extent 12/28/2020 Exercise Vital Sign Answer Date Recorde d On average, how many days pe r week do you engage in moderate to strenuous exercise (like a brisk walk)? Patient declined On average, how many minutes do you engage in exercise at this level? Patient declined 12/28/2020 Hunger Vital Sign Answer Date Recorded Within the past 12 months, y ou worried that your food would run out before you got the money to buy more. Never true 12/28/19 21 Within the past 12 months, t he food you bought just didn't last and you didn't have money to get more. Never true 12/28/2020 PRAPARE - Transportation Answer Date Re corded In the past 12 months, has l ack of transportation kept you from medical appointments or from getting medications? No 11/30 In the past 12 months, has l ack of transportation kept you from meetings, work, or from getting things needed for daily living? No 12/28/2020 Sex and Gender Information Value Date Recorded Sex Assigned at Male 01/24/2023 10:53 PM MEDIA PRODUCTION MANAGER Legal Sex Male 5:54 PM MEDIA PRODUCTION MANAGER Gender Identity Male 01/24/2023 10:53 PM MEDIA PRODUCTION MANAGER Sexual Orientation Straight 01/24/2023 10 :53 PM MEDIA PRODUCTION MANAGER COVID-19 Exposure Response Date Recorded In the last month, have you been in contact with someone who was confirmed or suspected to have Coronavirus / COVID-19? No / Unsure 12/27/2020 10:31 PM MEDIA PRODUCTION MANAGER documented as of this encounter Last Filed Vital Signs Vital Sign Reading Time Taken Comments Blood Pressure 172/111 12/28/2020 9:00 AM MEDIA PRODUCTION MANAGER Pulse 78 12/28/2020 9:00 AM MEDIA PRODUCTION MANAGER Temperature 36.8 ??C (98.3 ??F) 12/28/2020 9:00 AM CS T Respiratory Rate 20 12/28/2020 12:30 AM MEDIA PRODUCTION MANAGER Oxygen Saturation 98% 12/28/2020 9:00 AM MEDIA PRODUCTION MANAGER Inhaled Oxygen Concentration - - Weight 133.4 kg (294 lb) 12/28/2020 1:00 AM MEDIA PRODUCTION MANAGER Height 175.3 cm (5' 9 ) 12/28/2020 1:00 AM MEDIA PRODUCTION MANAGER Body Mass Index 43.42 12/28/2020 1:00 AM MEDIA PRODUCTION MANAGER documented in this encounter Functional Status * Question Answer Date of Assessment Author Status Do you have serious difficulty walking or climbing stairs? No 12/28/2020 1:37 AM MEDIA PRODUCTION MANAGER Arina Dalton RN Active * Question Answer Date of Assessment Author Status Do you have difficulty dressing or bathing? No 12/28/2020 1:37 AM Arina Guerra RN Active Because of a physical, mental, or emotional condition, do you have difficulty doing errands alone such as visiting a doctor's office or shopping? No 12/28/2020 1:37 AM Arina Guerra RN A ctive * RETIRED Are you deaf or do you have serious difficulty hearing Answer Date of Assessment Author Status No 12/28/2020 1:37 AM MEDIA PRODUCTION MANAGER Activ e * RETIRED Are you blind or do you have serious difficulty seeing, even when wearing glasses? Answer Date of Assessment Author Status No 12/28/2020 1:37 AM MEDIA PRODUCTION MANAGER Activ e * Do you have [...] difficulty concentrating, remembering, or making decisions? No 12/28/2020 1:37 AM Arina Guerra RN Active * Because of a physical, mental, or emotional condition, do you have serious difficulty concentrating, remembering, or making decisions? Answer Entry Date Author Status No 12/28/2020 1:37 AM Arina Guerra RN Active documented in this encounter Discharge Summaries * DENIA [place] - 12/28/2020 11:39 AM CST Hospital Discharge Summary Stan Khan male 1980 Admit Date: 12/27/2020 10:39 PM Discharge date: 01/31/21 Admitting Physician: Abigail Mack MD Primary Care Physician: SAI MEJIA MD Discharge Physician: Abigail Mack MD / DENIA GILLETTE Admission Diagnosis: Syncope and collapse [R55] Discharge Diagnosis: Patient Active Problem List Diagnosis ??? Syncope and collapse ??? Alcohol intoxication (CMS/HCC) ??? Morbid obesity (CMS/HCC) ??? Hypertension ??? NEVAEH (obstructive sleep apnea) Admission Condition: Fair Discharged Condition: Stable Code Status: Full Code Hospital Course: Stan Khan is an 40-year-old male who is being admitted for episodes of syncope. Patient is reported to be sitting up yesterday when he passed out for few seconds and then woke up again. He reports feeling weak and tired. #Syncope No further episodes, no neurological deficits. CTA of the head and neck was stable without stenosis. May be related to patient's alcohol abuse #Hypokalemia Corrected with IV fluids, K4.0 at discharge. Patient is tolerating p.o. intake and potassium level likely remain stable once he is eating and drinking nonalcohol-based fluids again. BMP in 1 week #Hypertension Appears to be uncontrolled, previously was on metoprolol. Sinus rhythm to sinus bradycardia with heart rates were in the 40s while resting. Due to bradycardia, patient be discharged home on lisinopril 10 mg p.o. daily. #Alcohol intoxication Alcohol level 0.248 on arrival, this was decreased to near normal levels upon discharge with IV fluids. Discussion patient indicates he appears to have an alcohol abuse problem, he was counseled on alcohol cessation and techniques to help. He was encouraged to follow-up with his primary care doctorfor further outpatient management and assistance. He was encouraged to return to the emergency department if he has any thoughts of suicide or want to harm himself. He was discharged home on thiamine, folic acid, and a multivitamin daily #Heavy smoker Patient is a 2 pack/day smoker, he has been advised to quit. Discussion of smoking cessation patient agreed to be discharged home with nicotine patches #NEVAEH/morbid obesity Patient counseled on weight loss and changing his lifestyle. He was advised that he is at high riskfor cardiac and vascular comorbidities to develop if he does not change his lifestyle and lose weight. Patient strongly encouraged to get some exercise and use CPAP at home. He was encouraged to stop smoking and drinking. Patient encouraged to take medications as prescribed. Consults: none Imaging Studies: CTA HEAD+NECK Narrative: Examination: CTA of the head and CTA of the neck Exam Date/Time: 12/28/2020 10:18 AM Reason For Exam: Syncope, simple, normal neuro exam Comparison: None Technique: CT angiography of the head and of the neck was performed after intravenous injection of 95 cc Isovue-370. Additional 3-D reconstructions and postprocessing were performed independently by the radiologist on a separate dedicated 3-D workstation. A dose lowering technique was used for thisprocedure, which may include, but is not limited to, dose reduction technique, automated exposure control, iterative reconstruction, ALARA (As Low As Reasonably Achievable), or Image Gently techniques. NASCET criteria utilized for stenosis grading. Findings: CTA NECK: Somewhat limited evaluation from very late bolus timing. There is extensive venous contamination with suboptimal opacification of arterial vasculature. In addition, there is extensive artifact at level of shoulders downward limiting evaluation of the common carotid arteries. The inferior extent of the exam does not include the arch or great vessels. The visualized distal aspect of the common carotid arteries, internal carotid arteries, and external carotid arteries are normal in caliber throughout without focal stenosis or aneurysmal dilatation. CTA HEAD: There is no severe stenosis or occlusion of the anterior cerebral arteries, middle cerebral arteries, or internal cerebral arteries appreciated. Calcifications in the cavernous portions of the internal carotid arteries are noted without complete stenosis. There is left vertebral artery dominance. The vertebral arteries, basilar artery, and posterior cerebral arteries show no evidence ofsignificant stenosis or occlusion. No large vascular malformation is appreciated. No evidence of intracranial hemorrhage. Impression: IMPRESSION: 1. No significant stenosis or occlusion of the visualized cervical arterial vasculature. Very limited evaluation due to extensive artifact, incomplete inclusion of proximal cervical arterial vasculature, and suboptimal bolus timing. 2. No severe stenosis or occlusion of central intracranial arterial vasculature. Limited evaluationdue to bolus timing. 3. If there is any continued clinical concern for stenosis or aneurysm, repeat evaluation suggestedwith attention to optimizing technique for improved visualization of vascular structures. Interpreted By: Duane Cain MD, 12/28/2020 10:45 AM Recent Labs Lab 12/27/20 2305 12/28/20 0835 NA 135* 136 K 2.9* 4.0 CL 98 102 CR 0.83 0.77 BUN 8 9 GFR >90 >90 GLU 116* 94 CA 8.8 8.3* Recent Labs Lab 12/27/20 2305 12/28/20 0835 WBC 8.0 7.2 HGB 17.8 16.8 HCT 50.1 48.5 MCV 99.6 101.5* PLT 157 145* RBC 5.03 4.78 Recent Labs Lab 12/27/20 230 INR 1.1 Recent Labs Lab 12/27/202304 TROP <0.017 Recent Labs Lab 12/27/202304 LACTICACID 1.8 No results for input(s): BNP in the last 168 hours. Microbiology Results (last 14 days) No results found for the last 336 hours. Discharge Exam: Physical Exam Vitals signs and nursing note reviewed. Constitutional: General: He is not in acute distress. Appearance: Normal appearance. He is well-developed. He is obese. He is not ill-appearing. Eyes: Pupils: Pupils are equal, round, and reactive to light. Neck: Musculoskeletal: Normal range of motion and neck supple. Thyroid: No thyromegaly. Vascular: No JVD. Trachea: No tracheal deviation. Cardiovascular: Rate and Rhythm: Normal rate and regular rhythm. Pulses: Normal pulses. Pulmonary: Effort: Pulmonary effort is normal. Breath sounds: Normal breath sounds. Abdominal: General: Bowel sounds are normal. Palpations: Abdomen is soft. Musculoskeletal: Normal range of motion. General: No tenderness. Skin: General: Skin is warm and dry. Neurological: General: No focal deficit present. Mental Status: He is alert and oriented to person, place, and time. Psychiatric: Mood and Affect: Mood normal. Behavior: Behavior normal. Thought Content: Thought content normal. Judgment: Judgment normal. Filed Vitals: 12/28/20 0100 12/28/20 0124 12/28/20 0700 12/28/20 0900 BP: (!) 153/109 (!) 161/105 (!) 172/111 Pulse: 79 78 Resp: Temp: 98.5 ??F (36.9 ??C) 99.3 ??F (37.4 ??C) 98.3 ??F (36.8 ??C) TempSrc: Tympanic Tympanic Tympanic SpO2: 98% 97% 98% Weight: 133.4 kg (294 lb) Height: 5' 9 (1.753 m) Discharge Medications: Medication List START taking these medications folic acid 1 MG tablet Commonly known as: FOLVITE Take 1 tablet (1 mg total) by mouth daily for 30 days. Start taking on: December 29, 2020 lisinopril 10 MG tablet Commonly known as: PRINIVIL Take 1 tablet (10 mg total) by mouth daily. multi vitamin/minerals tablet Commonly known as: THERA-M ENHANCED Take 1 tablet by mouth daily. Start taking on: December 29, 2020 nicotine 21 MG/24HR Commonly known as: NICODERM CQ Place 1 patch (21 mg total) onto the skin daily for 30 days. thiamine 100 MG Tabs Take 1 tablet (100 mg total) by mouth daily for 30 days. Start taking on: December 29, 2020 CONTINUE taking these medications atorvastatin 40 MG tablet Commonly known as: LIPITOR Take 1 tablet (40 mg total) by mouth nightly at bedtime. STOP taking these medications amoxicillin 500 MG tablet Commonly known as: AMOXIL metoprolol tartrate 50 MG tablet Commonly known as: LOPRESSOR Where to Get Your Medications These medications were sent to [id number] [address] [facility] [address] [employer] [facility] [address] ?? atorvastatin 40 MG tablet ?? folic acid 1 MG tablet ?? lisinopril 10 MG tablet ?? multi vitamin/minerals tablet ?? nicotine 21 MG/24HR ?? thiamine 100 MG Tabs Disposition: discharged to home Patient Instructions: Activity: activity as tolerated Diet: Diet cardiac Appropriate; 2 GM NA; Low Cholesterol Wound care: none needed Follow up Lab Orders: BMP in 1 week Patient to follow-up with his primary care provider Dr. Sai Mejia within 1 week Signed DENIA GILLETTE Cosigned by Abigail Mack MD at 12/28/2020 9:41 PM MEDIA PRODUCTION MANAGER A PRODUCTION MANAGER A PRODUCTION MANAGER Associated attestation - Abigail Mack MD - 12/28/2020 9:41 PM MEDIA PRODUCTION MANAGER I, ABIGAIL MACK MD, performed an examination of the patient on the day of discharge and discussed the discharge plans and disposition with the Advanced Practice Provider (JOCE). I reviewed the JOCE's note and agree with the findings and discharge plan of care, except as I have documented. documented in this encounter Discharge Instructions * Discharge Instructions* Yanelis Salinas RN - 12/28/2020 11:59 AM MEDIA PRODUCTION MANAGER Images from the original note were not included. Patient Education Hypokalemia Discharge Instructions About this topic A low level of potassium in the blood is hypokalemia. Potassium is a mineral that is needed for your heart and muscle function in your body. It helps your body: ?? Keep blood pressure normal ?? Keep muscles, like the heart, working the right way ?? Stop too much calcium from being lost through your urine ?? Control the normal flow of nutrients between body fluids and cells Your kidneys normally get rid of extra potassium. If they are not working well enough, the level ofpotassium in your blood will be too low. Some health problems or their treatment can cause problemswith your potassium level. These include: ?? Kidney failure ?? Certain drugs or supplements ?? Serious illnesses like diabetes, some syndromes, or too much hormones ?? Too much throwing up, having loose stools, or passing too much urine ?? Sweating too much ?? Bleeding in the stomach People who have a low blood potassium may have some signs or they may have none at all. You may notice: ?? Muscle pain or weakness ?? Not able to have a bowel movement ?? Heart that beats in an unusual pattern ?? Tiredness ?? Paralysis that may affect the lungs Your doctor will work to treat any hidden cause. You may need to have drugs help raise the potassium in your blood. You may be in the hospital until your levels are back to normal. You may be hooked to a heart monitor until your levels go back to a safe normal. What care is needed at home? ?? Ask your doctor what you need to do when you go home. Make sure you ask questions if you do not understand what the doctor says. This way you will know what you need to do. ?? Your doctor may tell you to stop taking drugs that might be causing your low potassium levels. Do not stop taking drugs on your own. ?? Stay in a cool room to avoid too much sweating. ?? Drink plenty of fluids when you are thirsty or as directed by your doctor. ?? Drink sports drinks that have potassium after a heavy workout. ?? Your doctor will talk to you about other care needed for the cause of your low potassium. Followyour doctor's orders with care. What follow-up care is needed? Your doctor may ask you to make visits to the office to check on your progress. Be sure to keep these visits. You may need another blood test to check the potassium level. What drugs may be needed? Your doctor may order drugs to raise the amount of potassium in your blood. Take them as ordered. You may be able to take pills or liquid medicine by mouth to raise your potassium level. But if it istoo low, your doctor may need to give you medicine through a tube into your vein, an IV. Will physical activity be limited? Rest for the first few days. Avoid activities like heavy lifting and hard exercise. What changes to diet are needed? Talk to your doctor or dietitian about your own diet plan. Ask if you need to eat more of foods high in potassium. Some of them include bananas, [place]ral nuts, broccoli, papaya, peanuts, potato skin, raisins, tomatoes, and sports drinks. When do I need to call the doctor? ?? Throwing up ?? Feeling tired ?? Loose stools ?? Abnormal heartbeat ?? Trouble breathing ?? Chest pain ?? Cramping or twitching of the muscles ?? Weakness ?? Paralysis ?? Confusion Teach Back: Helping You Understand The Teach Back Method helps you understand the information we are giving you. After you talk with the staff, tell them in your own words what you learned. This helps to make sure the staff has described each thing clearly. It also helps to explain things that may have been confusing. Before going home, make sure you can do these: ?? I can tell you about my condition. ?? I can tell you what I will do to keep my potassium level up. ?? I can tell you what I will do if I have cramping or twitching of my muscles. Last Reviewed Date 2019-09-17 Consumer Information Use and Disclaimer This information is not specific medical advice and does not replace information you receive from your health care provider. This is only a brief summary of general information. It does NOT include all information about conditions, illnesses, injuries, tests, procedures, treatments, therapies, discharge instructions or life-style choices that may apply to you. You must talk with your health care provider for complete information about your health and treatment options. This information should not be used to decide whether or not to accept your health care provider???s advice, instructions or recommendations. Only your health care provider has the knowledge and training to provide advice that is right for you. Copyright Copyright ?? 2020 [employer]. and its affiliates and/or licensors. All rights reserved. Patient Education Patient Education Near Fainting Discharge Instructions About this topic Near fainting is when you feel like you may pass out or lose consciousness, but you do not. For a short time, your brain does not get enough blood flow and oxygen to work the right way. Most of the time near fainting is not serious. Your doctor may want to rule out serious causes of fainting. A vasovagal response is most often the cause for near fainting, passing out, or feeling dizzy. It happens as a response to many types of triggers. These may include: ?? Seeing blood or needles ?? Pain or seeing someone in pain ?? Emotions like stress or fear ?? Illness like fevers, low blood sugar, or fluid loss ?? Standing for too long in one position or getting up too quickly ?? Straining to have a bowel movement ?? Drugs that change your blood pressure Your care will be based on what is causing your symptoms. You may also need treatment if you were hurt when you nearly fainted. What care is needed at home? ?? Ask your doctor what you need to do when you go home. Make sure you ask questions if you do not understand what the doctor says. ?? Find out your triggers. Triggers are things that you notice just before you feel like you will pass out. These may be seeing blood, getting up too quickly, or high temperatures. Try to avoid them. ?? If you feel like you might faint, lie down or ease yourself to the floor. Raise your legs. You may want to sit and put your head down between your legs. Both of these may help to avoid falling. ?? Cross your legs and tighten your leg muscles to help keep your blood pressure from dropping. This might also help before you get a shot or have blood drawn. Remain seated 15 to 30 minutes before rising again to ensure you don't feel faint again. ?? Get up slowly from a sitting or lying down position. Sit on the edge of the bed and take deep breaths before getting out of bed. ?? Move your legs often if you need to sit or gun barrel finisher one position for a long time. ?? Do foot exercises. Pump your foot up and down from the ankle or make small circles with your foot. ?? If you feel faint, do not drive a car. What follow-up care is needed? Your doctor may ask you to make visits to the office to check on your progress. Be sure to keep these visits. What drugs may be needed? The doctor may order drugs to: ?? Relieve dizziness ?? Control blood pressure Will physical activity be limited? Physical activities may be limited. Some strenuous activities may cause vasovagal response. Talk toyour doctor about what level of activity is safe for you. What changes to diet are needed? ?? Drink 6 to 8 glasses of water each day. ?? Your doctor may have you see a dietitian to adjust your salt intake. ?? Eat foods high in fiber to prevent hard stools. ?? Avoid excess beer, wine, and mixed drinks (alcohol). When do I need to call the doctor? Activate the emergency medical system right away if you have signs of a heart attack or stroke. Call 911 in the [place] or [place]. The sooner treatment begins, the better your chances for recovery. Call for emergency help right away if you have: ?? Signs of heart attack: ? Chest pain ? Trouble breathing ? Fast heartbeat ? Feeling dizzy ?? Signs of stroke: ? Sudden numbness or weakness of the face, arm, or leg, especially on one side of the body ? Sudden confusion, trouble speaking or understanding ? Sudden trouble seeing in one or both eyes ? Sudden trouble walking, dizziness, loss of balance or coordination ? Sudden severe headache with no known cause Call your doctor if you have: ?? Headache not helped by pain drugs ?? You hit your head after you faint ?? You have another near fainting event Teach Back: Helping You Understand The Teach Back Method helps you understand the information we are giving you. After you talk with the staff, tell them in your own words what you learned. This helps to make sure the staff has described each thing clearly. It also helps to explain things that may have been confusing. Before going home, make sure you are able to do these: ?? I can tell you about my condition. ?? I can tell you what I will do to try and stop another vasovagal response. ?? I can tell you what I will do if I have signs of a heart attack or stroke. Last Reviewed Date 2020-02-22 Consumer Information Use and Disclaimer This information is not specific medical advice and does not replace information you receive from your health care provider. This is only a brief summary of general information. It does NOT include all information about conditions, illnesses, injuries, tests, procedures, treatments, therapies, discharge instructions or life-style choices that may apply to you. You must talk with your health care provider for complete information about your health and treatment options. This information should not be used to decide whether or not to accept your health care provider???s advice, instructions or recommendations. Only your health care provider has the knowledge and training to provide advice that is right for you. Copyright Copyright ?? 2020 [employer] and its affiliates and/or licensors. All rights reserved. Patient Education Near Fainting Discharge Instructions About this topic Near fainting is when you feel like you may pass out or lose consciousness, but you do not. For a short time, your brain does not get enough blood flow and oxygen to work the right way. Most of the time near fainting is not serious. Your doctor may want to rule out serious causes of fainting. A vasovagal response is most often the cause for near fainting, passing out, or feeling dizzy. It happens as a response to many types of triggers. These may include: ?? Seeing blood or needles ?? Pain or seeing someone in pain ?? Emotions like stress or fear ?? Illness like fevers, low blood sugar, or fluid loss ?? Standing for too long in one position or getting up too quickly ?? Straining to have a bowel movement ?? Drugs that change your blood pressure Your care will be based on what is causing your symptoms. You may also need treatment if you were hurt when you nearly fainted. What care is needed at home? ?? Ask your doctor what you need to do when you go home. Make sure you ask questions if you do not understand what the doctor says. ?? Find out your triggers. Triggers are things that you notice just before you feel like you will pass out. These may be seeing blood, getting up too quickly, or high temperatures. Try to avoid them. ?? If you feel like you might faint, lie down or ease yourself to the floor. Raise your legs. You may want to sit and put your head down between your legs. Both of these may help to avoid falling. ?? Cross your legs and tighten your leg muscles to help keep your blood pressure from dropping. This might also help before you get a shot or have blood drawn. Remain seated 15 to 30 minutes before rising again to ensure you don't feel faint again. ?? Get up slowly from a sitting or lying down position. Sit on the edge of the bed and take deep breaths before getting out of bed. ?? Move your legs often if you need to sit or gun barrel finisher one position for a long time. ?? Do foot exercises. Pump your foot up and down from the ankle or make small circles with your foot. ?? If you feel faint, do not drive a car. What follow-up care is needed? Your doctor may ask you to make visits to the office to check on your progress. Be sure to keep these visits. What drugs may be needed? The doctor may order drugs to: ?? Relieve dizziness ?? Control blood pressure Will physical activity be limited? Physical activities may be limited. Some strenuous activities may cause vasovagal response. Talk toyour doctor about what level of activity is safe for you. What changes to diet are needed? ?? Drink 6 to 8 glasses of water each day. ?? Your doctor may have you see a dietitian to adjust your salt intake. ?? Eat foods high in fiber to prevent hard stools. ?? Avoid excess beer, wine, and mixed drinks (alcohol). When do I need to call the doctor? Activate the emergency medical system right away if you have signs of a heart attack or stroke. Call 911 in the [place] or [place]. The sooner treatment begins, the better your chances for recovery. Call for emergency help right away if you have: ?? Signs of heart attack: ? Chest pain ? Trouble breathing ? Fast heartbeat ? Feeling dizzy ?? Signs of stroke: ? Sudden numbness or weakness of the face, arm, or leg, especially on one side of the body ? Sudden confusion, trouble speaking or understanding ? Sudden trouble seeing in one or both eyes ? Sudden trouble walking, dizziness, loss of balance or coordination ? Sudden severe headache with no known cause Call your doctor if you have: ?? Headache not helped by pain drugs ?? You hit your head after you faint ?? You have another near fainting event Teach Back: Helping You Understand The Teach Back Method helps you understand the information we are giving you. After you talk with the staff, tell them in your own words what you learned. This helps to make sure the staff has described each thing clearly. It also helps to explain things that may have been confusing. Before going home, make sure you are able to do these: ?? I can tell you about my condition. ?? I can tell you what I will do to try and stop another vasovagal response. ?? I can tell you what I will do if I have signs of a heart attack or stroke. Last Reviewed Date 2020-02-22 Consumer Information Use and Disclaimer This information is not specific medical advice and does not replace information you receive from your health care provider. This is only a brief summary of general information. It does NOT include all information about conditions, illnesses, injuries, tests, procedures, treatments, therapies, discharge instructions or life-style choices that may apply to you. You must talk with your health care provider for complete information about your health and treatment options. This information should not be used to decide whether or not to accept your health care provider???s advice, instructions or recommendations. Only your health care provider has the knowledge and training to provide advice that is right for you. Copyright Copyright ?? 2020 [employer] and its affiliates and/or licensors. All rights reserved. Syncope (Fainting) The Basics Written by the doctors and editors at [employer] What is syncope???--?? Syncope is the medical term for fainting. After fainting, a person quickly comes to and is OK again. Syncope is very common. About 1 out of every 3 people has it at some point in life. In many cases, syncope is nothing to worry about. What causes syncope???--??Syncope happens when the brain temporarily doesn't get enough blood. One of the most common reasons this happens is called vasovagal syncope. If you have vasovagal syncope, your body has a reaction in which your heart beats too slowly or your blood vessels expand (or both). This can happen for lots of different kinds of reasons. People can have vasovagal syncope if they: ?? Have stress from fear or pain (for example, because they are injured or have blood taken for tests) ?? Stand for too long or are over-tired or overheated ?? Have an unusual reaction to urinating, coughing, or other body functions Sometimes vasovagal syncope happens with no clear cause. People can also have syncope that is not vasovagal. This can happen due to the following problems: ?? The heart beats too quickly or too slowly because of problems with the heart's electrical systemor because of side effects from some medicines. ?? Something blocks the flow of blood in the heart. This can happen in people who have conditions called aortic stenosis (a valve disease) or hypertrophic cardiomyopathy (a heart muscle disease). ?? Your blood pressure drops when you stand or sit up. That can happen if you: ? Do not drink enough water ? Take certain medicines that cause your blood pressure to drop ? Drink too much alcohol ? Lose a lot of blood (for example, if you get hurt) ? Have a medical condition that affects your blood pressure Is syncope dangerous???--??In many cases it is not dangerous. But it can be dangerous if you fall and hurt yourself when you faint. It can also be dangerous if you faint while driving. To be safe, check with your doctor or nurse before you start driving again after you faint. Should I see a doctor or nurse???--??Yes. Anyone who faints should see a doctor or nurse. Most cases of syncope are not serious. But people can get hurt when they faint. Plus, in some cases syncope is caused by a serious medical condition that should be treated. Knowing what caused you to faint canhelp you prevent it from happening again. Tell your doctor or nurse what happened before, during, and after you fainted. If someone was with you when you fainted, that person might be able to tell you what happened. The following informationis helpful: ?? What were you doing before you passed out? ?? How were you feeling before you passed out? ?? How long were you passed out? ?? How well did you recover? ?? Any past history of fainting? ?? A list of the medicines you take ?? Any medical conditions you might have Your doctor or nurse will ask you a few questions and do an exam. During the exam, the doctor or nurse might: ?? Check your blood pressure and heart rate when you are lying down, sitting, or standing ?? Listen to your heart to check whether something might be wrong with your heart valves or heart muscle Will I need tests???--??Yes. Your doctor will do a test called an electrocardiogram (also called an ECG ). For this test, the doctor will put sticky pads on your chest, belly, arms, and legs. Long, thin wires connect the pads to a machine (figure 1). The device records the electrical activity in your heart. This can show if the pattern of your heartbeats is abnormal. You might get other tests, too. These could include 1 or more of the following: ?? Echocardiogram (also called an echo ) - This test uses sound waves to create an image of the heart (figure 2). It allows the doctors to measure the gaming and chambers of the heart, see how the heart is pumping and check how the heart valves are working. Heart valves are flaps of tissue that open and close like swinging doors. They help keep blood moving in one direction. ?? Carotid sinus massage - For this test, a doctor presses on a blood vessel in your neck (figure 3) while watching your electrocardiogram. This can show if your blood vessel is too sensitive to pressure. ?? Home heart monitor - For home monitoring, you might wear or carry a device around at home. You will keep doing normal activities. One type of monitor records all your heart beats for 1 or 2 days (figure 4). With others, you push a button to record heart beats when you feel symptoms (figure 5). There is also a monitor you can wear in the form of a sticky patch that goes on your chest. It does not require separate wires or battery packs. You wear the patch for up to 14 days. Can syncope be prevented???--??You might be able to reduce your chances of fainting again if you: ?? Learn what causes your syncope: ? If an activity or condition causes your syncope, you can try to avoid it. ? If a medicine causes your syncope, your doctor can help you find an alternative. ? If a heart condition is causing your syncope, your doctor can suggest a treatment. ?? Lie down with your feet up when you feel like you might faint. How is syncope treated???--??That depends on what is causing your syncope. In many cases, the main treatment is to avoid the situations that cause syncope. In less common cases, other treatment might be needed. For example, you might need a pacemaker if your heart beats too slowly and this causes syncope. A pacemaker is a device that is put under your skin. Thin wires attach them to your heart. They help the heart beat at a normal speed or in a regular pattern. What if my child faints???--??If your child faints, you should take them to see a doctor. Most cases of syncope in children are not serious. Often they are caused by vasovagal syncope. Syncope can also happen in children if: ?? They hold their breath for too long ?? Their blood pressure drops when they stand or sit up ?? They swallow medicines, drugs, or alcohol ?? They have carbon monoxide poisoning In less common cases, syncope in children can be caused by a life-threatening condition, such as a serious heart condition, overheating, or a severe allergic reaction (called anaphylaxis). All topics are updated as new evidence becomes available and our peer review process is complete. This topic retrieved from [employer] on: Nov 03, 2020. Topic 63856 Version 12.0 Release: 28.5.3 - C28.469 ?2019??[employer] and/or its affiliates.??All rights reserved. figure 1: Person having an ECG This drawing shows a man having an ECG (also called an electrocardiogram or EKG). He has patches, called electrodes, stuck onto his chest, arms, and legs. Wires run from the electrodes to the ECG machine. An ECG measures the electrical activity in the heart. Graphic 16566 Version 2.0 figure 2: Transthoracic echocardiogram (echo) This picture shows a person getting an echocardiogram (or echo ). To do an echo, a doctor or nurseputs some gel on a person's chest. He or she presses a thick wand (called a transducer ) against the chest and moves it around. An echo uses sound waves to create images of the heart that appear on a computer screen. A test called an electrocardiogram (ECG) is done during an echo. For an ECG, patches (called electrodes ) are stuck to a person's chest. Wires run from the patches to a machine that records the electrical activity of the heart. Graphic 34502 Version 4.0 figure 3: Carotid sinus The carotid sinus is located in 1 of the arteries that brings blood to the brain. This artery is called the internal carotid artery. Graphic 17948 Version 1.0 figure 4: Holter monitor People with possible heart problems are sometimes asked to wear a device called a Holter monitor for 1 or 2 days. The device measures the electrical activity in the heart. It helps doctors pinpoint heart rhythm problems. You will have electrodes stuck to your chest that are connected to wires leading to the monitor. These electrodes tell the monitor how often your heart beats and if it has a normal rhythm. While you have a Holter monitor on, you should do your normal activities but keep the electrodes, wires, and device dry. Some people have an abnormal heart rhythm only during certain activities or certain times of the day. Graphic 35761 Version 8.0 figure 5: Cardiac event recorder An event recorder is a portable device patients can use to measure their heart rhythm for a short time. The patient must activate the recorder and hold it to the chest when they feel symptoms. It is useful for patients that have intermittent symptoms that may not be captured with other forms of testing. Graphic 49116 Version 4.0 Consumer Information Use and Disclaimer This information is not specific medical advice and does not replace information you receive from your health care provider. This is only a brief summary of general information. It does NOT include all information about conditions, illnesses, injuries, tests, procedures, treatments, therapies, discharge instructions or life-style choices that may apply to you. You must talk with your health care provider for complete information about your health and treatment options. This information should not be used to decide whether or not to accept your health care provider's advice, instructions or recommendations. Only your health care provider has the knowledge and training to provide advice that is right for you.The use of [employer] content is governed by the [employer] Terms of Use. ??2020 [employer] All rights reserved. Copyright ?2019??[employer] and/or its affiliates.??All rights reserved. A PRODUCTION MANAGER * Attachments The following attachments cannot be sent through Care Everywhere. * Alcohol Abuse and Alcoholism Discharge Instructions (Hungarian) * Quitting Smoking (Hungarian) * Lisinopril, ADULT (Hungarian) documented in this encounter Medications at Time of Discharge atorvastatin 40 MG tablet Take 1 tablet (40 mg total) by mouth nightly at bedtime. 30 tablet 12/28/2020 01/24/2023 folic acid 1 MG tablet Take 1 tablet (1 mg total) by mouth daily for 30 days. 30 tablet 12/29/2020 01/28/2021 lisinopril 10 MG tablet Take 1 tablet (10 mg total) by mouth daily. 30 tablet 12/28/2020 01/24/2023 multi vitamin/minerals tablet Take 1 tablet by mouth daily. 30 tablet 12/29/2020 01/24/2023 nicotine 21 MG/24HR Place 1 patch (21 mg total) onto the skin daily for 30 days. 28 patch 12/28/2020 01/27/2021 thiamine 100 MG Tab Take 1 tablet (100 mg total) by mouth daily for 30 days. 30 tablet 12/29/2020 01/28/2021 documented as of this encounter Progress Notes * Yanelis Salinas RN - 12/28/2020 11:56 AM CST Patient is resting in bed. Call light within reach. Problem: Reduced risk for falls/injury Goal: Reduced Risk for Falls/Injury Outcome: Adequate for Discharge Goal: Reduced Risk of Confusion (Acute vs Chronic) Outcome: Adequate for Discharge Goal: Reduced Risk of Symptomatic Depression Outcome: Adequate for Discharge Goal: Reduced Risk of Altered Elimination Outcome: Adequate for Discharge Goal: Reduced Risk of Dizziness/Vertigo/Balance Outcome: Adequate for Discharge Goal: Reduced Risk of Polypharmacy Outcome: Adequate for Discharge A PRODUCTION MANAGER * Arina Dalton RN - 12/28/2020 1:52 AM CST Patient states he drinks Alfred Beam, a couple drinks a night through the week and some on weekends. corrected and said he drinks a small bottle of Alfred Beam a night through the week, and 2 5ths of Alfred Beam on the weekend. Patient smokes atleast two packs of cigarettes a day. A PRODUCTION MANAGER documented in this encounter H&P Notes * DENIA Gillette - 12/28/2020 8:02 AM CST Images from the original note were not included. Hospital Admission History & Physical Provider: . DENIA GILLETTE PCP: SAI MEJIA MD Admitting Provider: Abigail Mack MD Attending Provider: Sai Mejia MD Chief Complaint: Syncope (Pt arrives to ED with c/o vomiting, then passed out. Thirty seconds laterhe stated he was fine, then wasn't responding again. Has had constant headaches and right leg pain for past week. ) HPI: Stan Khan is an 40-year-old male who is being admitted for episodes of syncope. Patient is reported to be sitting up yesterday when he passed out for few seconds and then woke up again. He reports feeling weak and tired. Labs were evaluated in the emergency department, patient had a potassium 2.9. Also it was noted that patient had a elevated alcohol level of 0.248. Patient stated he only had 3 mixed drinks during the day. PMH review patient indicates that he has morbid obesity with sleep apnea and is supposed to be using CPAP machine at night however he does not. Patient also reports being on metoprolol in the past for hypertension which she is currently not taking any medications. Patient is a 2 pack/day smoker. And patient states he drinks particularly on the weekends, sometimes during the evenings, he admits todrinking to help with anxiety, and he has been told that he drinks too much. Patient states he is currently not taking any medications. Currently patient reports a headache, which he states is near chronic for him. He reports that whenhe wakes up in the morning he has a headache and he feels anxious every morning. Currently patient denies any chest pain, shortness of breath, visual changes, abdominal pain, nausea vomiting or diarrhea Reason for Admission: Syncopal episode, alcohol intoxication, hypokalemia No Known Allergies No current facility-administered medications on file prior to encounter. Current Outpatient Medications on File Prior to Encounter Medication Sig ??? atorvastatin 40 MG tablet Take 40 mg by mouth nightly at bedtime. ??? amoxicillin 500 MG tablet ??? metoprolol tartrate 50 MG tablet Take 50 mg by mouth 2 (two) times daily. Review of Systems Constitutional: Positive for malaise/fatigue. HENT: Negative. Eyes: Negative. Respiratory: Negative. Cardiovascular: Negative. Gastrointestinal: Negative. Genitourinary: Negative. Musculoskeletal: Negative. Neurological: Positive for headaches. Negative for dizziness, sensory change, speech change, focal weakness and weakness. Psychiatric/Behavioral: Positive for substance abuse. Travel Screening Question Response In the last month, have you been in contact with someone who was confirmed or suspected to have Coronavirus / COVID-19? No / Unsure Have you had a COVID-19 viral test in the last 14 days? Yes - Negative result Do you have any of the following new or worsening symptoms? None of these Have you traveled internationally or domestically in the last month? No Travel History Travel since 11/27/20 No documented travel since 11/27/20 Past Medical History: Diagnosis Date ??? Alcohol drinking problem ??? Heavy smoker ??? Hypercholesteremia ??? Hypertension ??? Morbid obesity (CMS/HCC) ??? NEVAEH (obstructive sleep apnea) Past Surgical History: Procedure Laterality Date ??? FRACTURE SURGERY Social History Tobacco Use ??? Smoking status: Current Every Day Smoker Packs/day: 2.00 Years: 18.00 Pack years: 36.00 Types: Cigarettes ??? Smokeless tobacco: Never Used Substance Use Topics ??? Alcohol use: Yes Comment: (1) small bottle a day through week, (1) 5th on weekends a day. ALFRED CLINTON Family History Problem Relation Name Age of Onset ??? Alcohol Abuse Mother ??? Arthritis Mother ??? Asthma Mother ??? Depression Mother ??? Diabetes Mother ??? Alcohol Abuse Father ??? Cancer Father ??? COPD Father ??? Diabetes Father ??? Early Father ??? Heart Disease Father ??? Hypertension Father ??? Kidney Disease Father ??? Alcohol Abuse Sister Blood pressure (!) 172/111, pulse 78, temperature 98.3 ??F (36.8 ??C), temperature source Tympanic,resp. rate 20, height 5' 9 (1.753 m), weight 133.4 kg (294 lb), SpO2 98 %. Physical Exam Vitals signs and nursing note reviewed. Constitutional: General: He is not in acute distress. Appearance: Normal appearance. He is well-developed. He is obese. He is not ill-appearing. HENT: Mouth/Throat: Mouth: Mucous membranes are moist. Eyes: Extraocular Movements: Extraocular movements intact. Pupils: Pupils are equal, round, and reactive to light. Neck: Musculoskeletal: Normal range of motion and neck supple. Thyroid: No thyromegaly. Vascular: No JVD. Trachea: No tracheal deviation. Cardiovascular: Rate and Rhythm: Normal rate and regular rhythm. Pulses: Normal pulses. Pulmonary: Effort: Pulmonary effort is normal. Breath sounds: Normal breath sounds. Abdominal: General: Bowel sounds are normal. There is no distension. Palpations: Abdomen is soft. Tenderness: There is no abdominal tenderness. Musculoskeletal: Normal range of motion. General: No tenderness. Skin: General: Skin is warm and dry. Capillary Refill: Capillary refill takes less than 2 seconds. Neurological: General: No focal deficit present. Mental Status: He is alert and oriented to person, place, and time. Psychiatric: Mood and Affect: Mood normal. Behavior: Behavior normal. Thought Content: Thought content normal. Judgment: Judgment normal. Recent Results (from the past 24 hour(s)) CBC W/DIFF AUTOMATED Collection Time: 12/27/20 11:05 PM Result Value Ref Range WBC 8.0 4.5 - 10.8 x10'3/uL RBC 5.03 4.50 - 6.10 x10'6/uL HGB 17.8 13.0 - 18.0 G/DL HCT 50.1 37.0 - 52.0 % MCV 99.6 78.0 - 100.0 FL MCH 35.4 (H) 27.0 - 31.0 PG MCHC 35.5 33.0 - 36.0 G/DL RDW 13.3 11.5 - 14.5 % PLT 157 150 - 350 x10'3/uL MPV 9.8 7.4 - 10.4 FL Differential Comment NORMAL REFERENCE RANGE NOT ESTABLISHED FOR THE PROPORTIONAL LEUKOCYTE DIFFERENTIAL. SEG NEUTROPHILS 52.2 % LYMPHOCYTES 32.4 % MONOCYTES 8.4 % EOSINOPHILS 5.1 % BASOPHILS 1.4 % IMMATURE GRANS 0.5 % NRBC 0.0 % ABS. NEUTROPHILS 4.18 1.60 - 8.30 x10'3/uL ABS. LYMPHOCYTES 2.59 0.80 - 4.70 x10'3/uL ABS. MONOCYTES 0.67 0.00 - 1.50 x10'3/uL ABS. EOSINOPHILS 0.41 (H) 0.00 - 0.40 x10'3/uL ABS. BASOPHILS 0.11 0.00 - 0.20 x10'3/uL ABS. IMMATURE GRANULOCYTES 0.04 (H) 0.00 - 0.03 x10'3/uL ABS. NUCLEATED RBC'S 0.00 0.00 x10'3/uL PROTIME/INR, VENOUS Collection Time: 12/27/20 11:05 PM Result Value Ref Range Protime 11.9 9.4 - 12.5 SEC INR 1.1 0.9 - 1.1 D-DIMER, QUANTITATIVE Collection Time: 12/27/20 11:05 PM Result Value Ref Range D-DIMER 442 0 - 500 ng[FEU]/mL COMPREHENSIVE METABOLIC PANEL Collection Time: 12/27/20 11:05 PM Result Value Ref Range SODIUM 135 (L) 136 - 145 MMOL/L POTASSIUM 2.9 (LL) 3.5 - 5.1 MMOL/L CHLORIDE S/P/B 98 98 - 107 MMOL/L CO2 24.5 21.0 - 32.0 MMOL/L GLUCOSE 116 (H) 70 - 99 MG/DL BUN 8 6 - 24 MG/DL CREATININE S/P/B 0.83 0.70 - 1.30 MG/DL CALCIUM 8.8 8.4 - 10.5 MG/DL BILIRUBIN TOTAL S/P/B 0.5 0.2 - 1.0 MG/DL ALKALINE PHOSPHATASE S/P/B 87 45 - 115 U/L AST 146 (H) 15 - 37 U/L ALT 117 (H) 16 - 63 U/L TOTAL PROTEIN S/P/B 8.4 (H) 6.4 - 8.2 G/DL ALBUMIN S/P/B 3.8 3.4 - 5.0 G/DL ANION GAP 12.5 5.0 - 15.0 MMOL/L OSMOLALITY (CALC) 279 MOSM/KG eGFR Non-Afr. Amer. >90 >89 ML/MIN/1.73 M2 eGFR Afr. Amer. >90 >89 ML/MIN/1.73 M2 GFR NOTES GFR REFERENCES: TROPONIN, QUANT Collection Time: 12/27/20 11:05 PM Result Value Ref Range TROPONIN I <0.017 0.000 - 0.056 ng/mL. LACTIC ACID Collection Time: 12/27/20 11:05 PM Result Value Ref Range LACTIC ACID 1.8 0.4 - 2.0 MMOL/L MAGNESIUM Collection Time: 12/27/20 11:05 PM Result Value Ref Range MAGNESIUM 2.1 1.8 - 2.4 MG/DL THYROID STIM HORMONE, TSH Collection Time: 12/27/20 11:05 PM Result Value Ref Range TSH 1.937 0.358 - 3.740 uIU/ML C-REACTIVE PROTEIN Collection Time: 12/27/20 11:05 PM Result Value Ref Range C-REACTIVE PROTEIN 0.52 (H) <0.30 mg/dL ETHANOL Collection Time: 12/27/20 11:05 PM Result Value Ref Range Alcohol 0.248 (H) <0.003 G/DL PRO-BRAIN NATRIURETIC PEPTIDE Collection Time: 12/27/20 11:05 PM Result Value Ref Range Pro-B TYPE NATRIURETIC PEPTIDE 12 <125 PG/ML URINALYSIS Collection Time: 12/27/20 11:50 PM Result Value Ref Range COLOR (U) MARCELLA TRANSPARENCY SLIGHTLY CLOUDY Specific [place] (U) 1.025 1.000 - 1.025 U PH 5.5 5.0 - 8.0 LEUKOCYTE ESTERASE NEGATIVE NEGATIVE NITRITES NEGATIVE NEGATIVE PROTEIN (U) 1+ (A) NEGATIVE URINE GLUCOSE NEGATIVE NEGATIVE U KETONES NEGATIVE NEGATIVE UROBILINOGEN 0.2 <1.0 EU/DL BILIRUBIN (U) NEGATIVE NEGATIVE BLOOD TRACE (A) NEGATIVE WBC/HPF NONE SEEN (A) 0 - 5 /HPF RBC/HPF NONE SEEN (A) 0 - 5 /HPF EPI/HPF NONE SEEN /LPF BACTERIA (URINE) NONE SEEN /HPF URINE, OTHER CASTS HYALINE /LPF DRUG SCREEN RAPID Collection Time: 12/27/20 11:50 PM Result Value Ref Range CANNABINOIDS SCREEN (U) NEGATIVE NEGATIVE PHENCYCLIDINE PCP (U) NEGATIVE NEGATIVE COCAINE METABOLITES (U) NEGATIVE NEGATIVE METHAMPHETAMINE (U) NEGATIVE NEGATIVE OPIATE SCREEN (U) NEGATIVE NEGATIVE AMPHETAMINE (U) NEGATIVE NEGATIVE BENZODIAZEPINES SCREEN (U) NEGATIVE NEGATIVE TRICYCLIC ANTIDEPRESSANT SCREEN (U) NEGATIVE NEGATIVE METHADONE (U) NEGATIVE NEGATIVE BARBITURATES SCREEN (U) NEGATIVE NEGATIVE OXYCODONE SCREEN (U) NEGATIVE NEGATIVE PROPOXYPHENE SCREEN (U) NEGATIVE NEGATIVE URINE TOX COMMENT THIS TEST METHODOLOGY IS DESIGNED AND OFFERED A RAPID TURNAROUND, QUALITATIVE SCREENING PROCEDURE TO AID IN THE IMMEDIATE MEDICAL ASSESSMENT OF PATIENTS SUSPECTED OF SUBSTANCE ABUSE. CBC W/DIFF AUTOMATED Collection Time: 12/28/20 8:35 AM Result Value Ref Range WBC 7.2 4.5 - 10.8 x10'3/uL RBC 4.78 4.50 - 6.10 x10'6/uL HGB 16.8 13.0 - 18.0 G/DL HCT 48.5 37.0 - 52.0 % MCV 101.5 (H) 78.0 - 100.0 FL MCH 35.1 (H) 27.0 - 31.0 PG MCHC 34.6 33.0 - 36.0 G/DL RDW 13.2 11.5 - 14.5 % PLT 145 (L) 150 - 350 x10'3/uL MPV 9.9 7.4 - 10.4 FL Differential Comment NORMAL REFERENCE RANGE NOT ESTABLISHED FOR THE PROPORTIONAL LEUKOCYTE DIFFERENTIAL. SEG NEUTROPHILS 58.7 % LYMPHOCYTES 26.6 % MONOCYTES 8.3 % EOSINOPHILS 4.2 % BASOPHILS 1.8 % IMMATURE GRANS 0.4 % NRBC 0.0 % ABS. NEUTROPHILS 4.20 1.60 - 8.30 x10'3/uL ABS. LYMPHOCYTES 1.90 0.80 - 4.70 x10'3/uL ABS. MONOCYTES 0.59 0.00 - 1.50 x10'3/uL ABS. EOSINOPHILS 0.30 0.00 - 0.40 x10'3/uL ABS. BASOPHILS 0.13 0.00 - 0.20 x10'3/uL ABS. IMMATURE GRANULOCYTES 0.03 0.00 - 0.03 x10'3/uL ABS. NUCLEATED RBC'S 0.00 0.00 x10'3/uL COMPREHENSIVE METABOLIC PANEL Collection Time: 12/28/20 8:35 AM Result Value Ref Range SODIUM 136 136 - 145 MMOL/L POTASSIUM 4.0 3.5 - 5.1 MMOL/L CHLORIDE S/P/B 102 98 - 107 MMOL/L CO2 23.7 21.0 - 32.0 MMOL/L GLUCOSE 94 70 - 99 MG/DL BUN 9 6 - 24 MG/DL CREATININE S/P/B 0.77 0.70 - 1.30 MG/DL CALCIUM 8.3 (L) 8.4 - 10.5 MG/DL BILIRUBIN TOTAL S/P/B 0.9 0.2 - 1.0 MG/DL ALKALINE PHOSPHATASE S/P/B 76 45 - 115 U/L AST 117 (H) 15 - 37 U/L ALT 103 (H) 16 - 63 U/L TOTAL PROTEIN S/P/B 7.7 6.4 - 8.2 G/DL ALBUMIN S/P/B 3.4 3.4 - 5.0 G/DL ANION GAP 10.3 5.0 - 15.0 MMOL/L OSMOLALITY (CALC) 280 MOSM/KG eGFR Non-Afr. Amer. >90 >89 ML/MIN/1.73 M2 eGFR Afr. Amer. >90 >89 ML/MIN/1.73 M2 GFR NOTES GFR REFERENCES: ETHANOL Collection Time: 12/28/20 8:35 AM Result Value Ref Range Alcohol 0.034 (H) <0.003 G/DL MAGNESIUM Collection Time: 12/28/20 8:35 AM Result Value Ref Range MAGNESIUM 1.8 1.8 - 2.4 MG/DL Imaging: Results for orders placed or performed during the hospital encounter of 12/27/20 XR CHEST PORTABLE Narrative PROVIDED INDICATION: routine OTHER AVAILABLE INFORMATION: Multiple episodes of syncope. EXAM: XR CHEST PORTABLE 2326 HOURS COMPARISON: None. Impression IMPRESSION: 1. Low lung volumes. 2. Heart size upper normal. 3. No focal airspace infiltrate or pleural effusion evident. Interpreted By: Dion Vargas MD, 12/27/2020 11:[address] HEAD WO CON Narrative EXAMINATION: CT HEAD WITHOUT CONTRAST DATE: 12/27/2020 11:20 PM INDICATION: Recurrent syncope. COMPARISON: None. TECHNIQUE: Routine axial images through the head without contrast. Low-dose CT acquisition technique included one or more of the following options: 1. Automated exposure control, 2. Adjustment of mA and/or KV according to patient's size and/or 3. Use of iterative reconstruction. FINDINGS: Intracranial contents: The ventricles and cisternal spaces are prominent from mild volume loss. No dominant mass, midline shift, hydrocephalus, extra-axial fluid collection or acute hemorrhage. No asymmetric hyperdensity of the proximal major cerebral arteries. Craniocervical junction is patent. Bones and extracranial soft tissues: Mild mucosal thickening ethmoid air cells. Minor mucosal thickening sphenoid sinuses, maxillary sinuses. Otherwise, Visualized paranasal sinuses and mastoid air cells are clear. Skull is intact. Visualized intraorbital contents are unremarkable. Calcifications distal internal carotid arteries and distal vertebral arteries. IMPRESSION: 1. No acute intracranial process. MRI is more sensitive for the detection of acute nonhemorrhagic infarct. 2. Volume loss. Atherosclerosis. 3. Paranasal sinus disease. Electronically signed by: Denton Montoya M.D. 12/27/2020 11:44:00 PM IMPRESSION: 40-year-old male with morbid obesity and a history of NEVAEH, hypertension, and documented heavy cigarette use and alcohol abuse presents with reported syncopal episodes. Patient syncopal episodes appear to correlate along with his drinking history. He denies any episodes of palpitations or chest pain. Patient has chronic headaches he states, he states is worse in the morning and also has morning anxiety. Patient is not taking medications for hypertension and he has been hypertensive since arrival to the hospital. Patient heart rate is sinus bradycardia sinus rhythm, rate down to 40s while sleeping it up to the 60s 70s while awake. Patient has been on metoprolol in the past, however due to recent bradycardia we will treat his hypertension with ABIEL inhibitor. Patient offered nicotine patch while in the hospital, he declined. Patient had a significantly elevated alcohol level upon arrival to the hospital, he was treated with IV fluids and his alcohol level has decreased and is near baseline. Patient is ANO x4 and has no gait abnormalities. Will conduct a CTA of the head and neck to rule out stenotic issues that may be causing patient's headache and/or syncopal episodes. Patient states he is feeling better but like to be discharged home this afternoon. Principal Problem: Syncope and collapse Active Problems: Alcohol intoxication (CMS/HCC) Morbid obesity (CMS/HCC) Hypertension NEVAEH (obstructive sleep apnea) Resolved Problems: * No resolved hospital problems. * PLAN: Admit observation Continue IV fluids General diet Lisinopril 20 mg daily Thiamine 100 mg daily Folic acid milligrams daily Multivitamin daily Vital signs routine Cardiac monitoring Monitor intake and output CTA of the head and neck with IV contrast DENIA GILLETTE 12/28/2020 Cosigned by Abigail Mack MD at 12/28/2020 9:40 PM MEDIA PRODUCTION MANAGER A PRODUCTION MANAGER A PRODUCTION MANAGER Associated attestation - Abigail Mack MD - 12/28/2020 9:40 PM MEDIA PRODUCTION MANAGER I, ABIGAIL MACK MD, performed a History and Physical examination of the patient and discussed the management with the Advanced Practice Provider (JOCE). I reviewed the JOCE's note and agree with the findings and plan of care, except as I have documented. documented in this encounter Nursing Notes * Arina Dalton RN - 12/28/2020 2:06 AM CST Patient arrived on 3rd floor, and place in room 320. Patient able to stand for weight. Patient ableto move from stretcher to bed with standby assist due to iv fluids running. Patient blood pressure is elevated, which was noted in ED. Other vitals stable. Patient alert, and oriented x 4. Admission completed, assessment completed. Will continue plan of care. A PRODUCTION MANAGER documented in this encounter ED Notes * Susan Martinez RN - 12/27/2020 11:36 PM CST PT RETURNED FROM RADIOLOGY. A PRODUCTION MANAGER * Susan Martinez RN - 12/27/2020 11:25 PM CST PT TO RADIOLOGY. A PRODUCTION MANAGER * Nixon Otero MD - 12/27/2020 11:11 PM CST Chief Complaint Chief Complaint Patient presents with ??? Syncope Pt arrives to ED with c/o vomiting, then passed out. Thirty seconds later he stated he was fine, then wasn't responding again. Has had constant headaches and right leg pain for past week. History of Present Illness This is a 40-year-old male with a history of hypertension noncompliant. Brought by his becauseof a syncopal episode. States he vomitx1 and then passed out, for about 30 seconds, and then look confused. The patient states that this has been going on for a year or longer. And probably has passed out about 10 times a year. He did not go to any emergency room attending did not talk to any primary doctor about it. He has passed out twice at work. And has also passed out when he has been sitting up. Patient states chronic on and off headaches, and sometimes his blood pressure is really high. He denies any chest pain or shortness of breath or palpitations during these episodes. His states sometimes he she noted seizure-like movements evaluation. Other times he does not move at all. The patient states he drinks 1-2 drinks liquids during the week, and heavily on weekends. He also smokes 2 pack of cigarettes a day. He feels sleepy in general during the day. And sometimes he falls asleep while talking to somebody else. He snores at night. He denies feeling nauseated, denies diarrhea, denies abdominal pain. Denies any fevers. Denies sorethroat. Medical History ALLERGIES: No Known Allergies MEDICATIONS: Prior to Admission medications Medication Sig Start Date End Date Taking? Authorizing Provider amoxicillin 500 MG tablet 12/22/20 Doc Abstract PAST MEDICAL HISTORY: Past Medical History: Diagnosis Date ??? Hypercholesteremia ??? Hypertension PAST SURGICAL HISTORY: Past Surgical History: Procedure Laterality Date ??? FRACTURE SURGERY FAMILY HISTORY: No family history on file. SOCIAL HISTORY: Social History Tobacco Use ??? Smoking status: Current Every Day Smoker ??? Smokeless tobacco: Never Used Substance Use Topics ??? Alcohol use: Yes Comment: daily ??? Drug use: Never Review of Systems Review of Systems All other systems reviewed and are negative. Physical Exam Filed Vitals: 12/27/20 2355 12/28/20 0000 12/28/20 0015 12/28/20 0030 BP: (!) 130/96 (!) 130/96 (!) 150/109 (!) 144/94 Pulse: 113 91 90 84 Resp: 22 21 13 20 Temp: TempSrc: SpO2: 96% 95% 96% 96% Weight: Height: Physical Exam Vitals signs and nursing note reviewed. Constitutional: Appearance: Normal appearance. HENT: Head: Normocephalic and atraumatic. Nose: Nose normal. Mouth/Throat: Mouth: Mucous membranes are moist. Eyes: Pupils: Pupils are equal, round, and reactive to light. Neck: Musculoskeletal: Normal range of motion. Cardiovascular: Rate and Rhythm: Normal rate and regular rhythm. Pulses: Normal pulses. Heart sounds: Normal heart sounds. Pulmonary: Effort: Pulmonary effort is normal. Breath sounds: Normal breath sounds. Abdominal: General: Abdomen is flat. Bowel sounds are normal. Palpations: Abdomen is soft. Musculoskeletal: Normal range of motion. Skin: General: Skin is warm. Neurological: General: No focal deficit present. Mental Status: He is alert and oriented to person, place, and time. Mental status is at baseline. Psychiatric: Mood and Affect: Mood normal. Diagnostic Studies / Procedures ELECTROCARDIOGRAMS: Results for orders placed or performed during the hospital encounter of 12/27/20 ECG [address] 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: : [id number] Requested By: NIXON OTERO Order Number: [id number] Reading MD: Jovani Georges Measurements Intervals [place] Rate: 87 P: 50 KS: 153 QRS: 35 QRSD: 119 T: -9 QT: 384 QTc: 464 Interpretive Statements SINUS RHYTHM INCOMPLETE RIGHT BUNDLE BRANCH BLOCK A PRODUCTION MANAGER LABORATORY STUDIES: Results for orders placed or performed during the hospital encounter of 12/27/20 CBC W/DIFF AUTOMATED Result Value Ref Range WBC 8.0 4.5 - 10.8 x10'3/uL RBC 5.03 4.50 - 6.10 x10'6/uL HGB 17.8 13.0 - 18.0 G/DL HCT 50.1 37.0 - 52.0 % MCV 99.6 78.0 - 100.0 FL MCH 35.4 (H) 27.0 - 31.0 PG MCHC 35.5 33.0 - 36.0 G/DL RDW 13.3 11.5 - 14.5 % PLT 157 150 - 350 x10'3/uL MPV 9.8 7.4 - 10.4 FL Differential Comment NORMAL REFERENCE RANGE NOT ESTABLISHED FOR THE PROPORTIONAL LEUKOCYTE DIFFERENTIAL. SEG NEUTROPHILS 52.2 % LYMPHOCYTES 32.4 % MONOCYTES 8.4 % EOSINOPHILS 5.1 % BASOPHILS 1.4 % IMMATURE GRANS 0.5 % NRBC 0.0 % ABS. NEUTROPHILS 4.18 1.60 - 8.30 x10'3/uL ABS. LYMPHOCYTES 2.59 0.80 - 4.70 x10'3/uL ABS. MONOCYTES 0.67 0.00 - 1.50 x10'3/uL ABS. EOSINOPHILS 0.41 (H) 0.00 - 0.40 x10'3/uL ABS. BASOPHILS 0.11 0.00 - 0.20 x10'3/uL ABS. IMMATURE GRANULOCYTES 0.04 (H) 0.00 - 0.03 x10'3/uL ABS. NUCLEATED RBC'S 0.00 0.00 x10'3/uL PROTIME/INR, VENOUS Result Value Ref Range Protime 11.9 9.4 - 12.5 SEC INR 1.1 0.9 - 1.1 D-DIMER, QUANTITATIVE Result Value Ref Range D-DIMER 442 0 - 500 ng[FEU]/mL COMPREHENSIVE METABOLIC PANEL Result Value Ref Range SODIUM 135 (L) 136 - 145 MMOL/L POTASSIUM 2.9 (LL) 3.5 - 5.1 MMOL/L CHLORIDE S/P/B 98 98 - 107 MMOL/L CO2 24.5 21.0 - 32.0 MMOL/L GLUCOSE 116 (H) 70 - 99 MG/DL BUN 8 6 - 24 MG/DL CREATININE S/P/B 0.83 0.70 - 1.30 MG/DL CALCIUM 8.8 8.4 - 10.5 MG/DL BILIRUBIN TOTAL S/P/B 0.5 0.2 - 1.0 MG/DL ALKALINE PHOSPHATASE S/P/B 87 45 - 115 U/L AST 146 (H) 15 - 37 U/L ALT 117 (H) 16 - 63 U/L TOTAL PROTEIN S/P/B 8.4 (H) 6.4 - 8.2 G/DL ALBUMIN S/P/B 3.8 3.4 - 5.0 G/DL ANION GAP 12.5 5.0 - 15.0 MMOL/L OSMOLALITY (CALC) 279 MOSM/KG eGFR Non-Afr. Amer. >90 >89 ML/MIN/1.73 M2 eGFR Afr. Amer. >90 >89 ML/MIN/1.73 M2 GFR NOTES GFR REFERENCES: TROPONIN, QUANT Result Value Ref Range TROPONIN I <0.017 0.000 - 0.056 ng/mL. LACTIC ACID Result Value Ref Range LACTIC ACID 1.8 0.4 - 2.0 MMOL/L MAGNESIUM Result Value Ref Range MAGNESIUM 2.1 1.8 - 2.4 MG/DL THYROID STIM HORMONE, TSH Result Value Ref Range TSH 1.937 0.358 - 3.740 uIU/ML C-REACTIVE PROTEIN Result Value Ref Range C-REACTIVE PROTEIN 0.52 (H) <0.30 mg/dL ETHANOL Result Value Ref Range Alcohol 0.248 (H) <0.003 G/DL PRO-BRAIN NATRIURETIC PEPTIDE Result Value Ref Range Pro-B TYPE NATRIURETIC PEPTIDE 12 <125 PG/ML URINALYSIS Result Value Ref Range COLOR (U) MARCELLA TRANSPARENCY SLIGHTLY CLOUDY Specific [place] (U) 1.025 1.000 - 1.025 U PH 5.5 5.0 - 8.0 LEUKOCYTE ESTERASE NEGATIVE NEGATIVE NITRITES NEGATIVE NEGATIVE PROTEIN (U) 1+ (A) NEGATIVE URINE GLUCOSE NEGATIVE NEGATIVE U KETONES NEGATIVE NEGATIVE UROBILINOGEN 0.2 <1.0 EU/DL BILIRUBIN (U) NEGATIVE NEGATIVE BLOOD TRACE (A) NEGATIVE WBC/HPF NONE SEEN (A) 0 - 5 /HPF RBC/HPF NONE SEEN (A) 0 - 5 /HPF EPI/HPF NONE SEEN /LPF BACTERIA (URINE) NONE SEEN /HPF URINE, OTHER CASTS HYALINE /LPF DRUG SCREEN RAPID Result Value Ref Range CANNABINOIDS SCREEN (U) NEGATIVE NEGATIVE PHENCYCLIDINE PCP (U) NEGATIVE NEGATIVE COCAINE METABOLITES (U) NEGATIVE NEGATIVE METHAMPHETAMINE (U) NEGATIVE NEGATIVE OPIATE SCREEN (U) NEGATIVE NEGATIVE AMPHETAMINE (U) NEGATIVE NEGATIVE BENZODIAZEPINES SCREEN (U) NEGATIVE NEGATIVE TRICYCLIC ANTIDEPRESSANT SCREEN (U) NEGATIVE NEGATIVE METHADONE (U) NEGATIVE NEGATIVE BARBITURATES SCREEN (U) NEGATIVE NEGATIVE OXYCODONE SCREEN (U) NEGATIVE NEGATIVE PROPOXYPHENE SCREEN (U) NEGATIVE NEGATIVE URINE TOX COMMENT THIS TEST METHODOLOGY IS DESIGNED AND OFFERED A RAPID TURNAROUND, QUALITATIVE SCREENING PROCEDURE TO AID IN THE IMMEDIATE MEDICAL ASSESSMENT OF PATIENTS SUSPECTED OF SUBSTANCE ABUSE. IMAGING STUDIES CT HEAD WO CON Final Result by User, [id number] (12/27 [id number]) EXAMINATION: CT HEAD WITHOUT CONTRAST DATE: 12/27/2020 11:20 PM INDICATION: Recurrent syncope. COMPARISON: None. TECHNIQUE: Routine axial images through the head without contrast. Low-dose CT acquisition technique included one or more of the following options: 1. Automated exposure control, 2. Adjustment of mA and/or KV according to patient's size and/or 3. Use of iterative reconstruction. FINDINGS: Intracranial contents: The ventricles and cisternal spaces are prominent from mild volume loss. No dominant mass, midline shift, hydrocephalus, extra-axial fluid collection or acute hemorrhage. No asymmetric hyperdensity of the proximal major cerebral arteries. Craniocervical junction is patent. Bones and extracranial soft tissues: Mild mucosal thickening ethmoid air cells. Minor mucosal thickening sphenoid sinuses, maxillary sinuses. Otherwise, Visualized paranasal sinuses and mastoid air cells are clear. Skull is intact. Visualized intraorbital contents are unremarkable. Calcifications distal internal carotid arteries and distal vertebral arteries. IMPRESSION: 1. No acute intracranial process. MRI is more sensitive for the detection of acute nonhemorrhagic infarct. 2. Volume loss. Atherosclerosis. 3. Paranasal sinus disease. Electronically signed by: Denton Montoya M.D. 12/27/2020 11:44:00 PM XR CHEST PORTABLE Final Result by User, [id number] (12/27 3812) PROVIDED INDICATION: routine OTHER AVAILABLE INFORMATION: Multiple episodes of syncope. EXAM: XR CHEST PORTABLE 2326 HOURS COMPARISON: None. IMPRESSION: 1. Low lung volumes. 2. Heart size upper normal. 3. No focal airspace infiltrate or pleural effusion evident. Interpreted By: Dion Vargas MD, 12/27/2020 11:35 PM ED Course / Medical Decision Making MDM Number of Diagnoses or Management Options Syncope and collapse: Diagnosis management comments: This is a 40-year-old male who came after syncopal episodes of about30 seconds. Parentally has been going on for a year or longer and has had about 10 syncopal episodes. More pain when standing orders sitting some at work. The patient is an alcohol abuser on the weekends and the smoker 2 pack of cigarettes a day. He has not follow with any primary care physician and has history of hypertension with noncompliance. The patient is somnolent during the day and snoresat night. Had a head CT negative and chest ray negative with benign blood work with some increase of the LFTs and proteinuria. Case has been discussed with Dr. Mack, about the recurrent syncopal episodes, the need for telemetry monitoring. Follow with observation. Is agreeable with admission. Clinical Impression Syncope and collapse (Primary) Disposition: Admit Nixon Otero MD 12/28/20 0055 A PRODUCTION MANAGER documented in this encounter Plan of Treatment Not on file documented as of this encounter Procedures Procedure Name Priority Date/Time Associated Diagnosis Comments CTA HEAD+NECK STAT 12/28/2020 10:18 AM MEDIA PRODUCTION MANAGER COMPREHENSIVE METABOLIC PANEL Routine 12/28/2020 8:35 AM MEDIA PRODUCTION MANAGER CBC W/DIFF AUTOMATED Routine 12/28/2020 8:35 AM MEDIA PRODUCTION MANAGER MAGNESIUM Routine 12/28/2020 8:35 AM MEDIA PRODUCTION MANAGER ETHANOL Routine 12/28/2020 8:35 AM MEDIA PRODUCTION MANAGER DRUG SCREEN RAPID STAT 12/27/2020 11: 50 PM MEDIA PRODUCTION MANAGER HC URINALYSIS AUTO W/MICRO STAT 12/27/2020 11:[address] HEAD WO CON STAT 12/27/2020 11:33 PM MEDIA PRODUCTION MANAGER XR CHEST PORTABLE STAT 12/27/2020 11: 32 PM MEDIA PRODUCTION MANAGER ECG 12-LEAD Routine 12/27/2020 11:10 PM MEDIA PRODUCTION MANAGER PRO-BRAIN NATRIURETIC PEPTIDE STAT 12/27/2020 11:05 PM MEDIA PRODUCTION MANAGER PROTHROMBIN TIME, VENOUS STAT 12/27/2020 11:05 PM MEDIA PRODUCTION MANAGER COMPREHENSIVE METABOLIC PANEL STAT 12/27/2020 11:05 PM MEDIA PRODUCTION MANAGER LACTIC ACID STAT 12/27/2020 11:05 PM MEDIA PRODUCTION MANAGER D-DIMER, QUANTITATIVE STAT 12/27/2020 11:05 PM MEDIA PRODUCTION MANAGER C-REACTIVE PROTEIN STAT 12/27/2020 11 :05 PM MEDIA PRODUCTION MANAGER CBC W/DIFF AUTOMATED STAT 12/27/2020 11:05 PM MEDIA PRODUCTION MANAGER TROPONIN, QUANT STAT 12/27/2020 11:05 PM MEDIA PRODUCTION MANAGER THYROID STIM HORMONE TSH STAT 12/27/2020 11:05 PM MEDIA PRODUCTION MANAGER MAGNESIUM STAT 12/27/2020 11:05 PM MEDIA PRODUCTION MANAGER ETHANOL STAT 12/27/2020 11:05 PM MEDIA PRODUCTION MANAGER documented in this encounter Results * CTA HEAD+NECK (12/28/2020 10:18 AM MEDIA PRODUCTION MANAGER) Anatomical Region Laterality Modality Head, Neck Computed Tomogra phy 12/28/2020 10:4 5 AM MEDIA PRODUCTION MANAGER Impressions 12/28/2020 10:51 AM MEDIA PRODUCTION MANAGER IMPRESSION: 1. ?? No significant stenosis or occlusion of the visualized cervical arterial vasculature. ??Very limited evaluation due to extensive artifact, incomplete inclusion of proximal cervical arterial vasculature, and suboptimal bolus timing. 2. ?? No severe stenosis or occlusion of central intracranial arterial vasculature. ??Limited evaluation due to bolus timing. 3. ??If there is any continued clinical concern for stenosis or aneurysm, repeat evaluation suggested with attention to optimizing technique for improved visualization of vascular structures. Interpreted By: Duane Cain MD, 12/28/2020 10:45 AM Narrative 12/28/2020 10:51 AM MEDIA PRODUCTION MANAGER Examination: CTA of the head and CTA of the neck Exam Date/Time: 12/28/2020 10:18 AM Reason For Exam: ??Syncope, simple, normal neuro exam ?? Comparison: None Technique: CT angiography of the head and of the neck was performed after intravenous injection of 95 cc [id number]. Additional 3-D reconstructions and postprocessing were performed independently by the radiologist on a separate dedicated 3-D workstation. A dose lowering technique was used for this procedure, which may include, but is not limited to, dose reduction technique, automated exposure control, iterative reconstruction, ALARA (As Low As Reasonably Achievable), or Image Gently techniques. NASCET criteria utilized for stenosis grading. Findings: CTA NECK: Somewhat limited evaluation from very late bolus timing. ??There is extensive venous contamination with suboptimal opacification of arterial vasculature. ??In addition, there is extensive artifact at level of shoulders downward limiting evaluation of the common carotid arteries. ??The inferior extent of the exam does not include the arch or great vessels. ??The visualized distal aspect of the common carotid arteries, internal carotid arteries, and external carotid arteries are normal in caliber throughout without focal stenosis or aneurysmal dilatation. CTA HEAD: There is no severe stenosis or occlusion of the anterior cerebral arteries, middle cerebral arteries, or internal cerebral arteries appreciated. ??Calcifications in the cavernous portions of the internal carotid arteries are noted without complete stenosis. ??There is left vertebral artery dominance. ??The vertebral arteries, basilar artery, and posterior cerebral arteries show no evidence of significant stenosis or occlusion. ??No large vascular malformation is appreciated. ??No evidence of intracranial hemorrhage. Procedure Note Duane Cain MD - 12/28/2020 Examination: CTA of the head and CTA of the neck Exam Date/Time: 12/28/2020 10:18 AM Reason For Exam: Syncope, simple, normal neuro exam Comparison: None Technique: CT angiography of the head and of the neck was performed afterintravenous injection of 95 cc Isovue-370. Additional 3-D reconstructionsand postprocessing were performed independently by the radiologist on aseparate dedicated 3-D workstation. A dose lowering technique was used forthis procedure, which may include, but is not limited to, dose reductiontechnique, automated exposure control, iterative reconstruction, ALARA (AsLow As Reasonably Achievable), or Image Gently techniques. NASCET criteriautilized for stenosis grading. Findings: CTA NECK: Somewhat limited evaluation from very late bolus timing. Thereis extensive venous contamination with suboptimal opacification ofarterial vasculature. In addition, there is extensive artifact at levelof shoulders downward limiting evaluation of the common carotid arteries.The inferior extent of the exam does not include the arch or greatvessels. The visualized distal aspect of the common carotid arteries,internal carotid arteries, and external carotid arteries are normal incaliber throughout without focal stenosis or aneurysmal dilatation. CTA HEAD: There is no severe stenosis or occlusion of the anteriorcerebral arteries, middle cerebral arteries, or internal cerebral arteriesappreciated. Calcifications in the cavernous portions of the internalcarotid arteries are noted without complete stenosis. There is leftvertebral artery dominance. The vertebral arteries, basilar artery, andposterior cerebral arteries show no evidence of significant stenosis orocclusion. No large vascular malformation is appreciated. No evidence ofintracranial hemorrhage. IMPRESSION: 1. No significant stenosis or occlusion of the visualized cervicalarterial vasculature. Very limited evaluation due to extensive artifact,incomplete inclusion of proximal cervical arterial vasculature, andsuboptimal bolus timing. 2. No severe stenosis or occlusion of central intracranial arterialvasculature. Limited evaluation due to bolus timing. 3. If there is any continued clinical concern for stenosis or aneurysm,repeat evaluation suggested with attention to optimizing technique forimproved visualization of vascular structures. Interpreted By: Duane Cain MD, 12/28/2020 10:45 AM us Young LOZA CT Final Result * MAGNESIUM (12/28/2020 8:35 AM MEDIA PRODUCTION MANAGER) MAGNESIUM 1.8 1.8 - 2.4 MG/DL 12/28/2020 9:24 AM MEDIA PRODUCTION MANAGER [facility] 12/28/2020 8:35 AM MEDIA PRODUCTION MANAGER us [facility] Final Result Performing Organization Address [facility] Co de Phone Number [facility] [address] [address], * (ABNORMAL) ETHANOL (12/28/2020 8:35 AM MEDIA PRODUCTION MANAGER) ALCOHOL S/P/B 0.034(H) <0.003 G/DL 12/28/2020 9:17 AM MEDIA PRODUCTION MANAGER [facility] 12/28/2020 8:35 AM MEDIA PRODUCTION MANAGER us Young [facility] Final Result Performing Organization Address [facility] Co de Phone Number [facility] [address] [place] [address], * (ABNORMAL) COMPREHENSIVE METABOLIC PANEL (12/28/2020 8:35 AM MEDIA PRODUCTION MANAGER) SODIUM S/P/B 136 136 - 145 MMOL/L 12/28/2020 9:17 AM MEDIA PRODUCTION MANAGER [facility] POTASSIUM S/P/B 4.0 3.5 - 5.1 MMOL/L 12/28/2020 9:17 AM MEDIA PRODUCTION MANAGER [facility] CHLORIDE S/P/B 102 98 - 107 MMOL/L 12/28/2020 9:17 AM MEDIA PRODUCTION MANAGER [facility] CO2 23.7 21.0 - 32.0 MMOL/L 12/28/2020 9:17 AM [facility] GLUCOSE 94 70 - 99 MG/DL 12/28/2020 9:17 AM [facility] Comment: FASTING GLUCOSE 100 TO 125 MG/DL IS CONSISTENT WITH IMPAIRED FASTING GLUCOSE. FASTING GLUCOSE >125 MG/DL IS CONSISTENT WITH DIABETES. RANDOM GLUCOSE >200 MG/DL WITH HYPERGLYCEMIC SYMPTOMS IS CONSISTENT WITH DIABETES. PER ADA GUIDELINES BUN 9 6 - 24 MG/DL 12/28/2020 9:17 AM [facility] CREATININE S/P/B 0.77 0.70 - 1.30 MG/DL 12/28/2020 9:17 AM [facility] CALCIUM S/P/B 8.3(L) 8.4 - 10.5 MG/DL 12/28/2020 9:17 AM [facility] BILIRUBIN TOTAL S/P/B 0.9 0.2 - 1.0 MG/DL 12/28/2020 9:17 AM [facility] Comment: THIS ASSAY IS NOT RECOMMENDED FOR PATIENTS UNDERGOING TREATMENT WITH ELTROMBOPAG DUE TO THE POTENTIAL FOR FALSELY ELEVATED RESULTS. ALKALINE PHOSPHATASE S/P/B 76 45 - 115 U/L 12/28/2020 9:17 AM [facility] AST 117(H) 15 - 37 U/L 12/28/2020 9:17 AM [facility] ALT 103(H) 16 - 63 U/L 12/28/2020 9:17 AM [facility] TOTAL PROTEIN S/P/B 7.7 6.4 - 8.2 G/DL 12/28/2020 9:17 AM [facility] ALBUMIN S/P/B 3.4 3.4 - 5.0 G/DL 12/28/2020 9:17 AM [facility] ANION GAP 10.3 5.0 - 15.0 MMOL/L 12/28/2020 9:17 AM [facility] OSMOLALITY (CALC) 280 MOSM/KG 021 9:17 AM [facility] Comment:REFERENCE RANGE NOT ESTABLISHED EGFR NON-AFR. AMER. >90 >89 ML/MIN/1. 73 M2 12/28/2020 9:17 AM MEDIA PRODUCTION MANAGER [facility] EGFR AFR. AMER. >90 >89 ML/MIN/1. 73 M2 12/28/2020 9:17 AM MEDIA PRODUCTION MANAGER [facility] GFR NOTES GFR REFERENCE S: 12/28/2020 9:17 AM MEDIA PRODUCTION MANAGER [facility] Comment: THE ESTIMATED GFR IS CALCULATED USING THE 2009 CKD-EPI EQUATION. THE FOLLOWING CATEGORIES FOR GRADING RENAL FUNCTION ARE RECOMMENDED BY THE INTERNATIONAL SOCIETY OF NEPHROLOGY (KDIGO 2012 CLINICAL PRACTICE GUIDELINE). G1,NORMAL OR HIGH: >89 ml/min/1.73 m2 G2,MILDLY DECREASED: 60-89 ml/min/1.73 m2 G3A,MILDLY TO MODERATELY DECREASED: 45-59 ml/min/1.73 m2 G3B,MODERATELY TO SEVERELY DECREASED: 30-44 ml/min/1.73 m2 G4,SEVERELY DECREASED: 15-29 ml/min/1.73 m2 G5,KIDNEY FAILURE: <15 ml/min/1.73 m2 12/28/2020 8:35 AM MEDIA PRODUCTION MANAGER Young [facility] Final Result [facility] [address] [place] [address], * (ABNORMAL) CBC W/DIFF AUTOMATED (12/28/2020 8:35 AM MEDIA PRODUCTION MANAGER) WBC 7.2 4.5 - 10.8 x10'3/uL 12/28/2020 9:09 AM MEDIA PRODUCTION MANAGER [facility] RBC 4.78 4.50 - 6.10 x10'6/uL 12/28/2020 9:09 AM MEDIA PRODUCTION MANAGER [facility] HGB 16.8 13.0 - 18.0 G/DL 12/28/2020 9:09 AM MEDIA PRODUCTION MANAGER [facility] HCT 48.5 37.0 - 52.0 % 12/28/2020 9:09 AM [facility] MCV 101.5(H) 78.0 - 100.0 FL 12/28/2020 9:09 AM [facility] MCH 35.1(H) 27.0 - 31.0 PG 12/28/2020 9:09 AM [facility] MCHC 34.6 33.0 - 36.0 G/DL 12/28/2020 9:09 AM [facility] RDW 13.2 11.5 - 14.5 % 12/28/2020 9:09 AM [facility] PLT 145(L) 150 - 350 x10'3/uL 12/28/2020 9:09 AM [facility] MPV 9.9 7.4 - 10.4 FL 12/28/2020 9:09 AM [facility] DIFFERENTIAL COMMENT NORMAL REFERENCE RANGE NOT ESTABLISHED FOR THE PROPORTIONAL LEUKOCYTE DIFFERENTIAL. 12/28/2020 9:09 AM [facility] SEG NEUTROPHILS 58.7 % 9:09 AM [facility] LYMPHOCYTES 26.6 % 12/28/2020 9:09 AM [facility] MONOCYTES 8.3 % 12/28/2020 9:09 AM [facility] EOSINOPHILS 4.2 % 12/28/2020 9:09 AM [facility] BASOPHILS 1.8 % 12/28/2020 9:09 AM [facility] IMMATURE GRANS % 0.4 % 12/28/19 9:09 AM [facility] NRBC 0.0 % 12/28/2020 9:09 AM [facility] ABS. NEUTROPHILS 4.20 1.60 - 8.30 x10'3/uL 12/28/2020 9:09 AM [facility] ABS. LYMPHOCYTES 1.90 0.80 - 4.70 x10'3/uL 12/28/2020 9:09 AM [facility] ABS. MONOCYTES 0.59 0.00 - 1.50 x10'3/uL 12/28/2020 9:09 AM [facility] ABS. EOSINOPHILS 0.30 0.00 - 0.40 x10'3/uL 12/28/2020 9:09 AM MEDIA PRODUCTION MANAGER [facility] ABS. BASOPHILS 0.13 0.00 - 0.20 x10'3/uL 12/28/2020 9:09 AM MEDIA PRODUCTION MANAGER [facility] ABS. IMMATURE GRANULOCYTES 0.03 0.00 - 0.03 x10'3/uL 12/28/2020 9:09 AM MEDIA PRODUCTION MANAGER [facility] ABS. NUCLEATED RBC'S 0.00 0.00 x10'3/uL 12/28/2020 9:09 AM MEDIA PRODUCTION MANAGER [facility] 12/28/2020 8:35 AM MEDIA PRODUCTION MANAGER Young [facility] Final Result [facility] [employer] [place] [address], * DRUG SCREEN RAPID (12/27/2020 11:50 PM MEDIA PRODUCTION MANAGER) Pathologist [facility] [place] CANNABINOIDS SCREEN (U) NEGATIVE NEGATIVE 12/28/2020 12:12 AM MEDIA PRODUCTION MANAGER [facility] PHENCYCLIDINE PCP (U) NEGATIVE NEGATIVE 12/28/2020 12:12 AM [facility] COCAINE METABOLITES (U) NEGATIVE NEGATIVE 12/28/2020 12:12 AM [facility] METHAMPHETAMINE (U) NEGATIVE NEGATIVE 12/28/2020 12:12 AM [facility] OPIATE SCREEN (U) NEGATIVE NEGATIVE 021 12:12 AM MEDIA PRODUCTION MANAGER [facility] AMPHETAMINE (U) NEGATIVE NEGATIVE 12:12 AM MEDIA PRODUCTION MANAGER [facility] BENZODIAZEPINES SCREEN (U) NEGATIVE NEGATIVE 12/28/2020 12:12 AM MEDIA PRODUCTION MANAGER [facility] TRICYCLIC ANTIDEPRESSANT SCREEN (U) NEGATIVE NEGATIVE 12/28/2020 12:12 AM [facility] METHADONE (U) NEGATIVE NEGATIVE 12/28/2020 12:12 AM [facility] BARBITURATES SCREEN (U) NEGATIVE NEGATIVE 12/28/2020 12:12 AM MEDIA PRODUCTION MANAGER [facility] OXYCODONE SCREEN (U) NEGATIVE NEGATIVE 12/28/2020 12:12 AM MEDIA PRODUCTION MANAGER [facility] PROPOXYPHENE SCREEN (U) NEGATIVE NEGATIVE 12/28/2020 12:12 AM [facility] URINE TOX COMMENT THIS TEST METHODOLOGY IS DESIGNED AND OFFERED A RAPID TURNAROUND, QUALITATIVE SCREENING PROCEDURE TO AID IN THE IMMEDIATE MEDICAL ASSESSMENT OF PATIENTS SUSPECTED OF SUBSTANCE ABUSE. 12/27/2020 11:53 PM MEDIA PRODUCTION MANAGER [facility] Comment: CLINICAL CONSIDERATION AND PROFESSIONAL JUDGMENT MUST BE APPLIED TO ANY DRUG OF ABUSE TEST RESULT, BOTH POSITIVE AND NEGATIVE. CONFIRMATORY QUANTITATIVE RESULTS ARE AVAILABLE THROUGH OUR [facility]. Urine specimen (specimen) URINE SPECIMEN / Unknown 12/27/2020 11:50 PM MEDIA PRODUCTION MANAGER Nixon Otero MD URINE ORDERABLES Final Result [facility] [address] [place] [address], * (ABNORMAL) URINALYSIS (12/27/2020 11:50 PM MEDIA PRODUCTION MANAGER) COLOR (U) MARCELLA 12/28/2020 12:11 AM MEDIA PRODUCTION MANAGER [facility] TRANSPARENCY SLIGHTLY CLOUDY 12/28/2020 12:11 AM [facility] SPECIFIC GRAVITY (U) 1.025 1.000 - 1.025 12/28/2020 12:11 AM [facility] U PH 5.5 5.0 - 8.0 12/28/2020 12:11 AM [facility] LEUKOCYTES (U) NEGATIVE NEGATIVE 12/28/2020 12:11 AM [facility] NITRITES NEGATIVE NEGATIVE 12/28/2020 12:11 AM [facility] PROTEIN (U) 1+(A) NEGATIVE 12/28/2020 12:11 AM [facility] URINE GLUCOSE NEGATIVE NEGATIVE 12/28/2020 12:11 AM [facility] KETONES MG/DL (U) NEGATIVE NEGATIVE 12/28/2020 12:11 AM MEDIA PRODUCTION MANAGER [facility] UROBILINOGEN 0.2 <1.0 EU/DL 12/28/2020 12:11 AM MEDIA PRODUCTION MANAGER [facility] BILIRUBIN (U) NEGATIVE NEGATIVE 12/28/2020 12:11 AM MEDIA PRODUCTION MANAGER [facility] BLOOD (U) TRACE(A) NEGATIVE 12/28/2020 12:11 AM MEDIA PRODUCTION MANAGER [facility] WBC/HPF NONE SEEN(A) 0 - 5 /HPF 12/28/2020 12:11 AM MEDIA PRODUCTION MANAGER [facility] RBC/HPF NONE SEEN(A) 0 - 5 /HPF 12/28/2020 12:11 AM MEDIA PRODUCTION MANAGER [facility] EPI/HPF NONE SEEN /LPF 12/28/2020 12:11 AM MEDIA PRODUCTION MANAGER [facility] BACTERIA (U) NONE SEEN /HPF 12/28/2020 12:11 AM MEDIA PRODUCTION MANAGER [facility] OTHER CASTS (U) HYALINE /LPF 12:11 AM MEDIA PRODUCTION MANAGER [facility] Comment:09-16 URINE SPECIMEN / Unknown 12/27/2020 11:50 PM MEDIA PRODUCTION MANAGER Nixon Otero MD URINE ORDERABLES Final Result [facility] [address] [place] [address], * CT HEAD WO CON (12/27/2020 11:33 PM MEDIA PRODUCTION MANAGER) Anatomical Region Laterality Modality Head Computed Tomogra phy 12/27/2020 11:4 3 PM MEDIA PRODUCTION MANAGER Narrative 12/27/2020 11:44 PM MEDIA PRODUCTION MANAGER EXAMINATION: CT HEAD WITHOUT CONTRAST DATE: 12/27/2020 11:20 PM INDICATION: Recurrent syncope. COMPARISON: None. TECHNIQUE: ??Routine axial images through the head without contrast. Low-dose CT acquisition technique included one or more of the following options: 1. Automated exposure control, 2. Adjustment of mA and/or KV according to patient's size and/or 3. Use of iterative reconstruction. FINDINGS: ?? Intracranial contents: The ventricles and cisternal spaces are prominent from mild volume loss. ??No dominant mass, midline shift, hydrocephalus, extra-axial fluid collection or acute hemorrhage. ?? No asymmetric hyperdensity of the proximal major cerebral arteries. Craniocervical junction is patent. Bones and extracranial soft tissues: Mild mucosal thickening ethmoid air cells. Minor mucosal thickening sphenoid sinuses, maxillary sinuses. Otherwise, Visualized paranasal sinuses and mastoid air cells are clear. ??Skull is intact. Visualized intraorbital contents are unremarkable. Calcifications distal internal carotid arteries and distal vertebral arteries. IMPRESSION: 1. No acute intracranial process. MRI is more sensitive for the detection of acute nonhemorrhagic infarct. 2. Volume loss. Atherosclerosis. 3. Paranasal sinus disease. Electronically signed by: ??Denton Montoya M.D. 12/27/2020 11:44:00 PM Procedure Note Denton Montoya MD - 12/27/2020 EXAMINATION: CT HEAD WITHOUT CONTRAST DATE: 12/27/2020 11:20 PM INDICATION: Recurrent syncope. COMPARISON: None. TECHNIQUE: Routine axial images through the head without contrast. Low-dose CT acquisition technique included one or more of the followingoptions: 1. Automated exposure control, 2. Adjustment of mA and/or KVaccording to patient's size and/or 3. Use of iterative reconstruction. FINDINGS: Intracranial contents: The ventricles and cisternal spaces are prominent from mild volume loss.No dominant mass, midline shift, hydrocephalus, extra-axial fluidcollection or acute hemorrhage. No asymmetric hyperdensity of the proximal major cerebral arteries. Craniocervical junction is patent. Bones and extracranial soft tissues: Mild mucosal thickening ethmoid air cells. Minor mucosal thickeningsphenoid sinuses, maxillary sinuses. Otherwise, Visualized paranasalsinuses and mastoid air cells are clear. Skull is intact. Visualizedintraorbital contents are unremarkable. Calcifications distal internalcarotid arteries and distal vertebral arteries. IMPRESSION: 1. No acute intracranial process. MRI is more sensitive for the detectionof acute nonhemorrhagic infarct. 2. Volume loss. Atherosclerosis. 3. Paranasal sinus disease. Electronically signed by: Denton Montoya M.D. 12/27/2020 11:44:00 PM Nixon Otero MD CT Final Result * XR CHEST PORTABLE (12/27/2020 11:32 PM MEDIA PRODUCTION MANAGER) Anatomical Region Laterality Modality Chest Radiographic Emmy ging 12/27/2020 11:3 5 PM MEDIA PRODUCTION MANAGER Impressions 12/27/2020 11:36 PM MEDIA PRODUCTION MANAGER IMPRESSION: 1. ??Low lung volumes. 2. ??Heart size upper normal. 3. ??No focal airspace infiltrate or pleural effusion evident. Interpreted By: Dion Vargas MD, 12/27/2020 11:35 PM Narrative 12/27/2020 11:36 PM MEDIA PRODUCTION MANAGER PROVIDED INDICATION: routine ? OTHER AVAILABLE INFORMATION: Multiple episodes of syncope. EXAM: XR CHEST PORTABLE 2326 HOURS COMPARISON: None. Procedure Note Dion Vargas MD - 12/27/2020 PROVIDED INDICATION: routine OTHER AVAILABLE INFORMATION: Multiple episodes of syncope. EXAM: XR CHEST PORTABLE 2326 HOURS COMPARISON: None. IMPRESSION: 1. Low lung volumes. 2. Heart size upper normal. 3. No focal airspace infiltrate or pleural effusion evident. Interpreted By: Dion Vargas MD, 12/27/2020 11:35 PM Nixon Otero MD GENERAL IMAGING Final Result * ECG 12 lead (12/27/2020 11:10 PM MEDIA PRODUCTION MANAGER) 12/27/2020 11:1 0 PM MEDIA PRODUCTION MANAGER Narrative [facility] - 12/28/2020 12:51 AM MEDIA PRODUCTION MANAGER ? [facility] ?[address] [place], [place] ??[address] ? Test Date: ?2020-12-27 Pat Name: ? STAN KHAN ?Department: ? Room: ? EXAM 404 Gender: ? Male ? Cryptologic Technician Technical: ?? : ?[id number] ? Requested By: NIXON OTERO Order Number: [id number] ? Reading MD: ?? Jovani Georges ? Measurements Intervals ?[place] ? Rate: ? 87 ? P: ?50 KS: ? 153 ?QRS: ?35 QRSD: ? 119 ?T: ?-9 QT: ? 384 ? QTc: ?464 ? Interpretive Statements SINUS RHYTHM INCOMPLETE RIGHT BUNDLE BRANCH BLOCK A PRODUCTION MANAGER Procedure Note Jovani Georges MD - 12/28/[address] [place] [id number] Test Date: 2020-12-27 Pat Name: STAN KHAN Department: Room: EXAM 404 Gender: Male Cryptologic Technician Technical: : [id number] Requested By: NIXON OTERO Order Number: [id number] Reading MD: Jovani Georges Measurements Intervals [place] Rate: 87 P: 50 KS: 153 QRS: 35 QRSD: 119 T: -9 QT: 384 QTc: 464 Interpretive Statements SINUS RHYTHM INCOMPLETE RIGHT BUNDLE BRANCH BLOCK A PRODUCTION MANAGER Nixon Otero MD ECG ORDERABLES Final Result Performing Organization Address [facility] Co de Phone Number [facility] * LACTIC ACID (12/27/2020 11:05 PM MEDIA PRODUCTION MANAGER) Pathologist [facility] [place] LACTIC ACID VENOUS 1.8 0.4 - 2.0 MMOL/L 12/27/2020 11:44 PM MEDIA PRODUCTION MANAGER [facility] 12/27/2020 11:0 5 PM MEDIA PRODUCTION MANAGER Nixon Otero MD LABORATORY Final Result Performing Organization Address [facility] Co de Phone Number [facility] [address] [place] [address], * PRO-BRAIN NATRIURETIC PEPTIDE (12/27/2020 11:05 PM MEDIA PRODUCTION MANAGER) PRO-B TYPE NATRIURETIC PEPTIDE 12 <125 PG/ML 12/27/2020 11:51 PM MEDIA PRODUCTION MANAGER [facility] Comment: CUT POINTS ESTABLISHED BY INTERNATIONAL COLLABORATIVE ON NT PROBNP (ICON) STUDY (2006). AGE INDEPENDENT: <300 PG/ML HAS A 99% NEGATIVE PREDICTIVE VALUE FOR EXCLUDING ACUTE CHF <50 YEARS: >450 PG/ML IS CONSISTENT WITH ACUTE CHF 50-75 YEARS: >900 PG/ML IS CONSISTENT WITH ACUTE CHF >75 YEARS: >1800 PG/ML IS CONSISTENT WITH ACUTE CHF IN PATIENTS WITH RENAL INSUFFICIENCY (GFR <60), >1200 PG/ML YIELDS A DIAGNOSTIC SENSITIVITY AND SPECIFICITY OF 89% AND 72% FOR ACUTE CHF. 12/27/2020 11:0 5 PM MEDIA PRODUCTION MANAGER us Nixon Otero MD LABORATORY Final Result Performing Organization Address City/[facility]/ZIP Co de Phone Number [facility] [address] [place] [address], * (ABNORMAL) ETHANOL (12/27/2020 11:05 PM MEDIA PRODUCTION MANAGER) ALCOHOL S/P/B 0.248(H) <0.003 G/DL 12/27/2020 11:51 PM MEDIA PRODUCTION MANAGER [facility] 12/27/2020 11:0 5 PM MEDIA PRODUCTION MANAGER us Nixon Otero MD LABORATORY Final Result Performing Organization Address [facility] Co de Phone Number [facility] [place] [facility] [address] [place] [phone], * (ABNORMAL) C-REACTIVE PROTEIN (12/27/2020 11:05 PM MEDIA PRODUCTION MANAGER) C-REACTIVE PROTEIN 0.52(H) <0.30 mg/dL 12/27/2020 11:51 PM MEDIA PRODUCTION MANAGER [facility] 12/27/2020 11:0 5 PM MEDIA PRODUCTION MANAGER us Nixon Otero MD LABORATORY Final Result Performing Organization Address City/[facility] Co de Phone Number [facility] [place] [facility] [address] [place] [id number], * THYROID STIM HORMONE, TSH (12/27/2020 11:05 PM MEDIA PRODUCTION MANAGER) TSH 1.937 0.358 - 3.740 uIU/ML 12/27/2020 11:51 PM MEDIA PRODUCTION MANAGER [facility] 12/27/2020 11:0 5 PM MEDIA PRODUCTION MANAGER us Nixon Otero MD LABORATORY Final Result Performing Organization Address City/[facility]/ZIP Co de Phone Number [facility] [facility] [address] [place] [address], * MAGNESIUM (12/27/2020 11:05 PM MEDIA PRODUCTION MANAGER) Pathologist [facility] [place] MAGNESIUM 2.1 1.8 - 2.4 MG/DL 12/27/2020 11:51 PM MEDIA PRODUCTION MANAGER [facility] 12/27/2020 11:0 5 PM MEDIA PRODUCTION MANAGER us Nixon Otero MD LABORATORY Final Result Performing Organization Address [facility] de Phone Number [facility] [facility] [address] [place] [address], * TROPONIN, QUANT (12/27/2020 11:05 PM MEDIA PRODUCTION MANAGER) [facility] TROPONIN I <0.017 0.000 - 0.056 ng/mL. 12/27/2020 11:51 PM MEDIA PRODUCTION MANAGER [facility] Comment: ALTHOUGH VALUES OVER 0.056 ARE CONSIDERED ABNORMAL AND REPRESENT MYOCARDIAL DAMAGE,A CUTOFF OF 0.600 HAS BEEN RECOMMENDED REPRESENTING ACUTE MYOCARDIAL INFARCTION. 12/27/2020 11:0 5 PM MEDIA PRODUCTION MANAGER us Nixon Otero MD LABORATORY Final Result Performing Organization Address [facility] de Phone Number [facility] [place] [facility] [address] [place] [phone], * (ABNORMAL) COMPREHENSIVE METABOLIC PANEL (12/27/2020 11:05 PM MEDIA PRODUCTION MANAGER) Pathologist [facility] [place] SODIUM S/P/B 135(L) 136 - 145 MMOL/L 12/27/2020 11:51 PM [facility] POTASSIUM S/P/B 2.9(LL) 3.5 - 5.1 MMOL/L 12/27/2020 11:51 PM [facility] Comment: CRITICAL RESULT CALLED TO EDILBERTO IN ER AT 2350 ON 12/27/20 READ BACK AND VERIFIED CHLORIDE S/P/B 98 98 - 107 MMOL/L 12/27/2020 11:51 PM [facility] CO2 24.5 21.0 - 32.0 MMOL/L 12/27/2020 11:51 PM [facility] GLUCOSE 116(H) 70 - 99 MG/DL 12/27/2020 11:51 PM [facility] Comment: FASTING GLUCOSE 100 TO 125 MG/DL IS CONSISTENT WITH IMPAIRED FASTING GLUCOSE. FASTING GLUCOSE >125 MG/DL IS CONSISTENT WITH DIABETES. RANDOM GLUCOSE >200 MG/DL WITH HYPERGLYCEMIC SYMPTOMS IS CONSISTENT WITH DIABETES. PER ADA GUIDELINES BUN 8 6 - 24 MG/DL 12/27/2020 11:51 PM [facility] CREATININE S/P/B 0.83 0.70 - 1.30 MG/DL 12/27/2020 11:51 PM [facility] CALCIUM S/P/B 8.8 8.4 - 10.5 MG/DL 12/27/2020 11:51 PM [facility] BILIRUBIN TOTAL S/P/B 0.5 0.2 - 1.0 MG/DL 12/27/2020 11:51 PM [facility] Comment: THIS ASSAY IS NOT RECOMMENDED FOR PATIENTS UNDERGOING TREATMENT WITH ELTROMBOPAG DUE TO THE POTENTIAL FOR FALSELY ELEVATED RESULTS. ALKALINE PHOSPHATASE S/P/B 87 45 - 115 U/L 12/27/2020 11:51 PM [facility] AST 146(H) 15 - 37 U/L 12/27/2020 11:51 PM [facility] ALT 117(H) 16 - 63 U/L 12/27/2020 11:51 PM [facility] TOTAL PROTEIN S/P/B 8.4(H) 6.4 - 8.2 G/DL 12/27/2020 11:51 PM MEDIA PRODUCTION MANAGER [facility] ALBUMIN S/P/B 3.8 3.4 - 5.0 G/DL 12/27/2020 11:51 PM [facility] ANION GAP 12.5 5.0 - 15.0 MMOL/L 12/27/2020 11:51 PM [facility] OSMOLALITY (CALC) 279 MOSM/KG 021 11:51 PM [facility] Comment:REFERENCE RANGE NOT ESTABLISHED EGFR NON-AFR. AMER. >90 >89 ML/MIN/1. 73 M2 12/27/2020 11:51 PM MEDIA PRODUCTION MANAGER [facility] EGFR AFR. AMER. >90 >89 ML/MIN/1. 73 M2 12/27/2020 11:51 PM [facility] GFR NOTES GFR REFERENCE S: 12/27/2020 11:51 PM [facility] Comment: THE ESTIMATED GFR IS CALCULATED USING THE 2009 CKD-EPI EQUATION. THE FOLLOWING CATEGORIES FOR GRADING RENAL FUNCTION ARE RECOMMENDED BY THE INTERNATIONAL SOCIETY OF NEPHROLOGY (KDIGO 2012 CLINICAL PRACTICE GUIDELINE). G1,NORMAL OR HIGH: >89 ml/min/1.73 m2 G2,MILDLY DECREASED: 60-89 ml/min/1.73 m2 G3A,MILDLY TO MODERATELY DECREASED: 45-59 ml/min/1.73 m2 G3B,MODERATELY TO SEVERELY DECREASED: 30-44 ml/min/1.73 m2 G4,SEVERELY DECREASED: 15-29 ml/min/1.73 m2 G5,KIDNEY FAILURE: <15 ml/min/1.73 m2 12/27/2020 11:0 5 PM MEDIA PRODUCTION MANAGER Nixon Otero MD LABORATORY Final Result [facility] [address] [place] [address], * D-DIMER, QUANTITATIVE (12/27/2020 11:05 PM MEDIA PRODUCTION MANAGER) D-DIMER 442 0 - 500 ng{FEU}/mL 12/27/2020 11:34 PM MEDIA PRODUCTION MANAGER [facility] Comment: D-Dimer values less than or equal to 500 ng/mL FEU have a negative predictive value of >95% for exclusion of deep vein thrombosis and pulmonary embolism. In patients over 50 (who tend to have higher normal baseline D-Dimer values), recent studies suggest age-adjusted D-Dimer cutoff values (calculated as: age [years] x 10 ng/mL) result in equivalent outcomes and no additional false negative findings. 12/27/2020 11:0 5 PM MEDIA PRODUCTION MANAGER us Nixon Otero MD LABORATORY Final Result Performing Organization Address City/[facility]/ZIP Co de Phone Number [facility] [address] [place] [address], * PROTIME/INR, VENOUS (12/27/2020 11:05 PM MEDIA PRODUCTION MANAGER) PROTIME 11.9 9.4 - 12.5 SEC 12/27/2020 11:34 PM MEDIA PRODUCTION MANAGER [facility] INR 1.1 0.9 - 1.1 12/27/2020 11:34 PM MEDIA PRODUCTION MANAGER [facility] 12/27/2020 11:0 5 PM MEDIA PRODUCTION MANAGER us Nixon Otero MD LABORATORY Final Result Performing Organization Address City/[facility]/ZIP Co de Phone Number [facility] [address] [place] [address], * (ABNORMAL) CBC W/DIFF AUTOMATED (12/27/2020 11:05 PM MEDIA PRODUCTION MANAGER) WBC 8.0 4.5 - 10.8 x10'3/uL 12/27/2020 11:24 PM MEDIA PRODUCTION MANAGER [facility] RBC 5.03 4.50 - 6.10 x10'6/uL 12/27/2020 11:24 PM MEDIA PRODUCTION MANAGER [facility] HGB 17.8 13.0 - 18.0 G/DL 12/27/2020 11:24 PM [facility] HCT 50.1 37.0 - 52.0 % 12/27/2020 11:24 PM [facility] MCV 99.6 78.0 - 100.0 FL 12/27/2020 11:24 PM [facility] MCH 35.4(H) 27.0 - 31.0 PG 12/27/2020 11:24 PM MEDIA PRODUCTION MANAGER [facility] MCHC 35.5 33.0 - 36.0 G/DL 12/27/2020 11:24 PM [facility] RDW 13.3 11.5 - 14.5 % 12/27/2020 11:24 PM [facility] PLT 157 150 - 350 x10'3/uL 12/27/2020 11:24 PM [facility] MPV 9.8 7.4 - 10.4 FL 12/27/2020 11:24 PM [facility] DIFFERENTIAL COMMENT NORMAL REFERENCE RANGE NOT ESTABLISHED FOR THE PROPORTIONAL LEUKOCYTE DIFFERENTIAL. 12/27/2020 11:24 PM [facility] SEG NEUTROPHILS 52.2 % 11:24 PM [facility] LYMPHOCYTES 32.4 % 12/27/2020 11:24 PM [facility] MONOCYTES 8.4 % 12/27/2020 11:24 PM [facility] EOSINOPHILS 5.1 % 12/27/2020 11:24 PM [facility] BASOPHILS 1.4 % 12/27/2020 11:24 PM [facility] IMMATURE GRANS % 0.5 % 12/27/19 11:24 PM [facility] NRBC 0.0 % 12/27/2020 11:24 PM [facility] ABS. NEUTROPHILS 4.18 1.60 - 8.30 x10'3/uL 12/27/2020 11:24 PM [facility] ABS. LYMPHOCYTES 2.59 0.80 - 4.70 x10'3/uL 12/27/2020 11:24 PM [facility] ABS. MONOCYTES 0.67 0.00 - 1.50 x10'3/uL 12/27/2020 11:24 PM MEDIA PRODUCTION MANAGER [facility] ABS. EOSINOPHILS 0.41(H) 0.00 - 0.40 x10'3/uL 12/27/2020 11:24 PM MEDIA PRODUCTION MANAGER [facility] ABS. BASOPHILS 0.11 0.00 - 0.20 x10'3/uL 12/27/2020 11:24 PM MEDIA PRODUCTION MANAGER [facility] ABS. IMMATURE GRANULOCYTES 0.04(H) 0.00 - 0.03 x10'3/uL 12/27/2020 11:24 PM MEDIA PRODUCTION MANAGER [facility] ABS. NUCLEATED RBC'S 0.00 0.00 x10'3/uL 12/27/2020 11:24 PM MEDIA PRODUCTION MANAGER [facility] 12/27/2020 11:0 5 PM MEDIA PRODUCTION MANAGER Nixon Otero MD LABORATORY Final Result [facility] [address] [place] [address], documented in this encounter Visit Diagnoses Diagnosis Syncope and collapse- Primary Syncope and collapse Hypokalemia Hypopotassemia Alcohol intoxication ([facility]) Alcohol abuse, unspecified Morbid obesity ([facility]) Morbid obesity Hypertension Unspecified essential hypertension NEVAEH (obstructive sleep apnea) Obstructive sleep apnea (adult) (pediatric) documented in this encounter Administered Medications Inactive Administered Medications - up to 3 most recent administrations Medication Order MAR Action Action Date Dose Rate Site 0.9 % NaCl with KCl 40 mEq infusion at 75 mL/hr, Intravenous, Continuous, Starting on 12/28/20 at 0000, Until 12/28/20 at 1432 Rate/Dose Change 12/28/2020 9:58 AM MEDIA PRODUCTION MANAGER 75 mL/hr 75 mL/hr New Bag 12/28/2020 5:26 AM MEDIA PRODUCTION MANAGER 200 mL/hr 200 mL/hr New Bag 12/28/2020 12:18 AM MEDIA PRODUCTION MANAGER 200 mL/hr 200 mL/hr folic acid (FOLVITE) tablet 1 mg 1 mg, Oral, Daily, First dose on 12/28/20 at 0900, Until Discontinued Given 12/28/2020 9:43 AM MEDIA PRODUCTION MANAGER 1 mg iopamidol (ISOVUE-370) 76 % injection 95 mL 95 mL, Intravenous, IMG once as needed, Contrast, 1 dose, Starting on 12/28/20 at 1018, Until 12/28/20 at 1011 Given 12/28/2020 10:11 AM MEDIA PRODUCTION MANAGER 95 mLs ketorolac (TORADOL) injection 30 mg 30 mg, Intravenous, Once, 1 dose, On 12/28/20 at 0000, For IV administration, give over 15 seconds. Given 12/28/2020 12:17 AM MEDIA PRODUCTION MANAGER 30 mg lisinopril (PRINIVIL) tablet 10 mg 10 mg, Oral, Once, 1 dose, On 12/28/20 at 0030 Given 12/28/2020 12:43 AM MEDIA PRODUCTION MANAGER 10 mg lisinopril (PRINIVIL) tablet 10 mg 10 mg, Oral, Daily, First dose on 12/28/20 at 1130, Until Discontinued multi vitamin/minerals (THERA-M ENHANCED) tablet 1 tablet 1 tablet, Oral, Daily, First dose on 12/28/20 at 0900, Until Discontinued Given 12/28/2020 9:43 AM MEDIA PRODUCTION MANAGER 1 tablet potassium chloride CR (KLOR-CON M) tablet 40 mEq 40 mEq, Oral, Once, 1 dose, On 12/28/20 at 0000, Do not chew, crush, or suck on tablet. May break in half. May dissolve whole tablet in 120 mL of water and drink immediately. Given 12/28/2020 12:18 AM MEDIA PRODUCTION MANAGER 40 mEq thiamine tablet 100 mg 100 mg, Oral, Daily, First dose on 12/28/20 at 0900, Until Discontinued Given 12/28/2020 9:43 AM MEDIA PRODUCTION MANAGER 100 mg documented in this encounter Active and Recently Administered Medications Times are shown in MEDIA PRODUCTION MANAGER. Scheduled Medication Order 12/26/2020 12/27/2020 12/28/2020 folic acid (FOLVITE) tablet 1 mg 1 mg, Oral, Daily, First dose on 12/28/20 at 0900, Until Discontinued 0943 (Given - Provid er: Yanelis Salinas RN) ketorolac (TORADOL) injection 30 mg (COMPLETED) 30 mg, Intravenous, Once, 1 dose, On 12/28/20 at 0000, For IV administration, give over 15 seconds. 0017 (Given - Provid er: Susan Martinez RN) lisinopril (PRINIVIL) tablet 10 mg (COMPLETED) 10 mg, Oral, Once, 1 dose, On 12/28/20 at 0030 0043 (Given - Provid er: Susan Martinez RN) lisinopril (PRINIVIL) tablet 10 mg 10 mg, Oral, Daily, First dose on 12/28/20 at 1130, Until Discontinued 1130 (Canceled Entry - Provider: Automatic Discharge Provider - Comment: Automatically canceled at discontinue of medication order) multi vitamin/minerals (THERA-M ENHANCED) tablet 1 tablet 1 tablet, Oral, Daily, First dose on 12/28/20 at 0900, Until Discontinued 0943 (Given - Provid er: Yanelis Salinas RN) potassium chloride CR (KLOR-CON M) tablet 40 mEq (COMPLETED) 40 mEq, Oral, Once, 1 dose, On 12/28/20 at 0000, Do not chew, crush, or suck on tablet. May break in half. May dissolve whole tablet in 120 mL of water and drink immediately. 0018 (Given - Provid er: Susan Martinez RN) thiamine tablet 100 mg 100 mg, Oral, Daily, First dose on 12/28/20 at 0900, Until Discontinued 0943 (Given - Provid er: Yanelis Salinas RN) Continuous Medication Order 12/26/2020 12/27/2020 12/28/2020 0.9 % NaCl with KCl 40 mEq infusion at 75 mL/hr, Intravenous, Continuous, Starting on 12/28/20 at 0000, Until 12/28/20 at 1432 0018 (New Bag - Prov ider: Susan Martinez RN)0525 (Infusion Stop Time - Provider: Arina Dalton RN)0526 (New Bag - Provider: Arina Dalton RN)0958 (Rate/Dose Change - Provider: Yanelis Salinas RN) PRN Medication Order 12/26/2020 12/27/2020 12/28/2020 iopamidol (ISOVUE-370) 76 % injection 95 mL (COMPLETED) 95 mL, Intravenous, IMG once as needed, Contrast, 1 dose, Starting on 12/28/20 at 1018, Until 12/28/20 at 1011 1011 (Given - Provid er: Alicia Guo, RTR) documented in this encounter Care Teams Architecture Consultant Relationship Specialty Start Date End Date Sai Mejia MD [address] [place] [phone] PCP - General FAMILY PRACTICE 12/27/20 01/22/24 documented as of this encounter
--- OUTSIDE RECORDS SUMMARY | 2024-12-08 03:47 | XMS_ITS | Encounter Summary ---
Author Organization [facility] Address [address] [place] [address]. [place], [place] [address] [place] [id number] Care Team Providers Care Car Wash Attendant Name Role Phone Sai Pacheco MD Primary Care Provider [phone] Encounter Details Date Type Department Care Team (Latest Contact Info) Description 12/27/2020 Travel Social History Tobacco Use Types Packs/Day Years Used Date Smoking Tobacco: Every Day Smokeless Tobacco: Never Alcohol Use Standard Drinks/Week Comments Yes 0 (1 standard drink = 0.6 oz pur e alcohol) daily Overall Financial Resource Strain (CARDIA) Answe r Date Recorded How hard is it for you to pa y for the very basics like food, housing, medical care, and heating? Not hard at all 12/28/2020 [facility] - Occupational Stress [...] Sex Assigned at Male 01/24/2023 10:53 PM GR[employer] VISITING TEACHER Legal Sex Male 5:54 PM [employer] VISITING TEACHER Gender Identity Male 01/24/2023 10:53 PM [employer] VISITING TEACHER Sexual Orientation Straight 01/24/2023 10 :53 PM [employer] VISITING TEACHER COVID-19 Exposure Response Date Recorded In the last month, have you been in contact with someone who was confirmed or suspected to have Coronavirus / COVID-19? No / Unsure 12/27/2020 10:31 PM [employer] VISITING TEACHER documented as of this encounter Plan of Treatment Not on file documented as of this encounter Visit Diagnoses Not on filedocumented in this encounter Care Teams Car Wash Attendant Relationship Specialty Start Date End Date Sai Pacheco MD [address] [place] [phone] PCP - General FAMILY PRACTICE 12/27/20 01/22/24 documented as of this encounter
--- OUTSIDE RECORDS SUMMARY | 2024-12-08 03:47 | XMS_ITS | Encounter Summary ---
Author Organization [facility] Address [address] [place] [address]. [place] [address] [place] [address] Care Team Providers Care Defensive Line Coach Name Role Phone Unavailable Primary Care Provider Unavailabl e Encounter Details Date Type Department Care Team (Late st Contact Info) Description 07/21/[address] [place] [address] [place] [address] Sai Pacheco MD [address] [place] [phone] Social History Tobacco Use Types Packs/Day Years Used Date Smoking Tobacco: Never Assessed Sex and Gender Information Value Date Recorded Sex Assigned at Male 01/24/2023 10:53 PM GEARMAN Legal Sex Male 5:54 PM GEARMAN Gender Identity Male 01/24/2023 10:53 PM GEARMAN Sexual Orientation Straight 01/24/2023 10 :53 PM GEARMAN documented as of this encounter Plan of Treatment Not on file documented as of this encounter Visit Diagnoses Diagnosis Right lower quadrant pain Abdominal pain, right lower quadrant documented in this encounter
--- OUTSIDE RECORDS SUMMARY | 2024-12-08 03:47 | XMS_ITS | Encounter Summary ---
Author Organization [facility] Address [address] [place] [address]. [place] [address] [place] [address] Care Team Providers Care Staffing Account Manager Name Role Phone Unavailable Primary Care Provider Unavailabl e Encounter Details Date Type Department Care Team (Late st Contact Info) Description 10/06/2018 [facility] [place] [address] [place] [address] Major Iglesais MD [address] [place] [phone] Social History Tobacco Use Types Packs/Day Years Used Date Smoking Tobacco: Never Assessed Sex and Gender Information Value Date Recorded Sex Assigned at Male 01/24/2023 10:53 PM VOLLEYBALL ASSEMBLER Legal Sex Male 5:54 PM VOLLEYBALL ASSEMBLER Gender Identity Male 01/24/2023 10:53 PM VOLLEYBALL ASSEMBLER Sexual Orientation Straight 01/24/2023 10 :53 PM VOLLEYBALL ASSEMBLER documented as of this encounter Plan of Treatment Not on file documented as of this encounter Procedures Procedure Name Priority Date/Time Associated Diagnosis Comments H PYLORI UREASE Routine 10/06/2018 8:33 AM VOLLEYBALL ASSEMBLER documented in this encounter Results * H PYLORI UREASE (10/06/2018 8:33 AM VOLLEYBALL ASSEMBLER) SPEC DESCRIPTION GASTRIC BIOPSY 10/06/2018 9:41 AM VOLLEYBALL ASSEMBLER [facility] SPECIAL REQUESTS NO SPECIAL REQUEST 10/06/2018 9:41 AM VOLLEYBALL ASSEMBLER [facility] DIRECT EXAM PRESUMPTIVE NEGATIVE FOR H. PYLORI 10/06/2018 1:45 PM VOLLEYBALL ASSEMBLER [facility] GASTRIC BIOPSY SPECIMEN / Unknown 10/06/2018 8:33 AM VOLLEYBALL ASSEMBLER 10/06/2018 9:43 AM VOLLEYBALL ASSEMBLER us Generic Conversion Md CERDA MICROBIOLOGY - GENERAL ORDERABLES Final Result Performing Organization Address City/State/[facility] Co de Phone Number [facility] [address] [place] [address], documented in this encounter Visit Diagnoses Diagnosis Chronic gastritis without bleeding Atrophic gastritis without mention of hemorrhage documented in this encounter
== END 2024-12-01 04:18 | disposition home or self-care (01) ==
PROVIDERS: Student in an Organized Health Care Education/Training Program; Emergency Provider Emergency Medicine; PCP Clinical Nurse Specialist
DX: R07.89 Other chest pain (principal); R55 Syncope and collapse; F17.210 Nicotine dependence, cigarettes, uncomplicated; I10 Essential (primary) hypertension; F41.9 Anxiety disorder, unspecified
CPT/HCPCS: 36415; 71046; 80053; 83690; 84484; 85025; 85610; 85730; 93005; 99284

== ENCOUNTER 2025-01-22 14:51 | Outpatient (CLI) | payer OTHER, SELFPAY ==
--- NOTE | ~2025-01-22 | XR_ITS ---
AP and oblique views of the SI joints CLINICAL HISTORY: Sacrococcygeal disorder FINDINGS: Visualized joint spaces are intact, unremarkable. No fracture or dislocation seen. Soft tis sues are unremarkable. IMPRESSION: Unremarkable exam. Reviewed, dictated and finalized at location M. HASING CONTRACTING CLERK IMPRESSION: Unremarkable exam.
== END 2025-01-22 14:52 | disposition home or self-care (01) ==
PROVIDERS: PCP Clinical Nurse Specialist; Visit Provider Physician Assistant
DX: M53.3 Sacrococcygeal disorders, not elsewhere classified (principal)
CPT/HCPCS: 72202